=== PATIENT | female | born 1950 | race Caucasian/White ===

== ENCOUNTER → 2018-02-27 | Outpatient (CLI) | payer BC, MEDICARE ==
--- NOTE | 2018-02-27 14:40 | MM ---
Reason for exam: screening (asymptomatic). Baseline mammogram. History: Patient is postmenopausal. Physical Findings: Nurse did not find any significant physical abnormalities on exam. MG 3D Screening Mammo W/Cad Bilateral CC and MLO view(s) were taken. There are scattered fibroglandular densities. Finding #1: There is a 8 mm circumscribed oval mass in the upper outer quadrant, additional smaller nodularity anterior to this in the upper outer quadrant. Finding #2: There are typically benign round calcifications in the left breast. These results were verbally communicated with the patient and result sheet given to the patient on 02/27/18. ASSESSMENT: Incomplete: need additional imaging evaluation, BI-RAD 0 RECOMMENDATION: Ultrasound of the left breast. [facility] will attempt to contact patient to return for ultrasound.
--- NOTE | 2018-02-27 14:43 | USB ---
Reason for exam: additional evaluation requested from abnormal screening. History: Patient is postmenopausal. US Breast Workup Limited LT Left limited breast ultrasound including focal area of concern, retroareolar and axilla demonstrates a 0.4 x 0.3 x 0.5cm benign questionable node at 2 o'clock, a 0.6 x 0.4 x 0.4cm benign questionable node at 2 o'clock and a 0.8 x 0.4 x 0.7cm mixed lesion at 4 o'clock. These results were verbally communicated with the patient and result sheet given to the patient on 02/27/18. ASSESSMENT: Probably benign, BI-RAD 3 RECOMMENDATION: Follow-up diagnostic mammogram and ultrasound of the left breast in 6 months.
== END | disposition home or self-care (01) ==
LOC: RADMAMWWP 13:16
PROVIDERS: ATTEND Family Medicine
DX: Z12.31 Encounter for screening mammogram for malignant neoplasm of breast (principal); Z78.0 Asymptomatic menopausal state
CPT/HCPCS: 77063; 77067

== ENCOUNTER → 2018-03-05 | Outpatient (CLI) | payer MEDICARE, BC ==
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
== END | disposition home or self-care (01) ==
LOC: RADBDWWP 07:03
PROVIDERS: ATTEND Family Medicine
DX: Z13.820 Encounter for screening for osteoporosis (principal); Z78.0 Asymptomatic menopausal state
CPT/HCPCS: 77080

== ENCOUNTER → 2018-10-29 | Outpatient (CLI) | payer MEDICARE ==
--- NOTE | 2018-10-29 10:18 | XR ---
EXAMINATION TYPE: XR foot complete LT DATE OF EXAM: 10/29/2018 COMPARISON: NONE HISTORY: Pain involving the left heel TECHNIQUE: Three views are submitted. FINDINGS: The osseous structures are intact. There is no acute fracture or dislocation. There is a large sof t tissue mass or edema adjacent to the fifth MTP joint. No erosive or destructive changes. Arthropath y of the first MTP joint seen. Spurring off the base of the fifth metatarsal noted. Large calcaneal s purs are seen. IMPRESSION: 1. No acute fracture or dislocation. If symptoms persist, follow-up exam in 7 to 10 days could be ob tained. 2. Large calcaneal spurs. 3. Abnormal soft tissue attenuation adjacent to the fifth MTP could be related to soft tissue mass or inflammatory change. Correlate clinically.
--- NOTE | 2018-10-29 10:32 | XR ---
EXAMINATION TYPE: XR ankle complete LT DATE OF EXAM: 10/29/2018 COMPARISON: NONE HISTORY: Pain FINDINGS: Three views of the ankle demonstrate the ankle mortise to be intact and symmetric. The joint spaces are preserved. The osseous structures are intact. Hypertrophic spurring involving the medial malleo matty. Large calcaneal spurs noted. IMPRESSION: 1. No definite acute fracture or dislocation, if symptoms persist follow-up study in 7 to 10 days wou ld be suggested. 2. Large calcaneal spurs.
--- NOTE | 2018-10-29 10:47 | US ---
EXAMINATION TYPE: US extremity nonvasc complete LT DATE OF EXAM: 10/29/2018 COMPARISON: Correlation radiographs 10/29/2018 CLINICAL HISTORY: 67-year-old male posterior left heel pain for 10 days without injury. M79.672 pain in foot, M25.572 Pain in left ankle. TECHNIQUE: Targeted ultrasound examination of the posterior left ankle along the Achilles tendon. FINDINGS: Prominent enthesopathy and posterior heel spurs are noted at the Achilles insertion. There is a 6 mm fragmented spur noted and some superficial fiber loss at the distal insertion. Mild overlying soft ti ssue swelling and minimal associated hyperemia. The remainder of the Achilles tendon shows minimal fu siform thickening of the middle third segment without tear. No effusion within the retrocalcaneal bur sa. IMPRESSION: 1. Posterior calcaneal spur at the Achilles insertion with a 6 mm area of fragmentation. If acute regis n in this location, consider a fractured heel spur especially given the overlying soft tissue swellin g. 2. Minimal tearing of superficial insertional Achilles fibers. 3. Very mild tendinosis of the middle third segment of the Achilles tendon.
== END ==
LOC: RADUSWWP 08:51
PROVIDERS: ATTEND Family Medicine
DX: M77.32 Calcaneal spur, left foot (principal); M76.62 Achilles tendinitis, left leg; M25.572 Pain in left ankle and joints of left foot; R93.7 Abnormal findings on diagnostic imaging of other parts of musculoskeletal system

== ENCOUNTER → 2020-09-25 | Outpatient (CLI) | payer MEDICARE ==
--- NOTE | 2020-09-25 13:50 | US ---
EXAMINATION TYPE: US venous doppler duplex LE LT DATE OF EXAM: 09/25/2020 1:36 PM COMPARISON: NONE CLINICAL HISTORY: M79.662 Pain Left leg. pain SIDE PERFORMED: Left TECHNIQUE: The lower extremity deep venous system is examined utilizing real time linear array sonog gabbie with graded compression, doppler sonography and color-flow sonography. VESSELS IMAGED: Common Femoral Vein Deep Femoral Vein Greater Saphenous Vein * Femoral Vein Popliteal Vein Small Saphenous Vein * Proximal Calf Veins (* superficial vessels) Left Leg: Negative for DVT IMPRESSION: No evidence of deep vein thrombosis in the left leg.
== END | disposition home or self-care (01) ==
LOC: RADUSWWP 12:53
PROVIDERS: ATTEND Family Medicine
DX: M79.662 Pain in left lower leg (principal)

== ENCOUNTER → 2021-06-29 | Outpatient (CLI) | payer MEDICARE ==
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
--- NOTE | 2021-07-01 11:09 | MM ---
Reason for exam: screening (asymptomatic). Last mammogram was performed 2 years and 10 months ago. History: Patient is postmenopausal. Physical Findings: A clinical breast exam by your physician is recommended on an annual basis and results should be correlated with mammographic findings. MG 3D Screening Mammo W/Cad Bilateral CC and MLO view(s) were taken. Prior study comparison: August 13, 2018, left breast MG diagnostic mammo LT w CAD. February 27, 2018, bilateral MG 3d screening mammo w/cad. There are scattered fibroglandular densities. There is chronic nodularity in the left breast. No significant changes when compared with prior studies. ASSESSMENT: Negative, BI-RAD 1 RECOMMENDATION: Routine screening mammogram of both breasts in 1 year.
== END | disposition home or self-care (01) ==
LOC: RADMAMWWP 15:32
PROVIDERS: ATTEND Family Medicine
DX: Z12.31 Encounter for screening mammogram for malignant neoplasm of breast (principal); Z13.820 Encounter for screening for osteoporosis
CPT/HCPCS: 77063; 77067; 77080

== ENCOUNTER 2022-10-07 16:05 | Emergency (ER) | payer MEDICARE ==
[2022-10-07 16:12] VITALS: BP 158/68; PULSE 67; RESP 20; TEMP 97.9
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
[2022-10-07] MEDS ORDERED: ONDANSETRON 4 MG/2 ML VIAL IVP STA (18:23)
[2022-10-07] MEDS ORDERED: SODIUM CHLORIDE 0.9% 1,000 ML IV STA (18:23)
[2022-10-07 18:49] LABS: Basophils % (A) 0 %; Eosinophils # (A) 0.2 k/uL (0-0.7); Eosinophils % (A) 3 %; HCT 36.1 % (34.0-46.0); HGB 11.7 gm/dL (11.4-16.0); Lymphocytes # (A) 1.9 k/uL (1.0-4.8); Lymphocytes % (A) 24 %; MCH 29.5 pg (25.0-35.0); MCHC 32.5 g/dL (31.0-37.0); MCV 90.8 fL (80.0-100.0); Mean Platelet Volume 8.7; Monocytes # (A) 0.4 k/uL (0-1.0); Monocytes % (A) 6 %; Neutrophils # (A) 5.2 k/uL (1.3-7.7); Neutrophils % (A) 65 %; Platelet Count 160 k/uL (150-450); RBC 3.97 m/uL (3.80-5.40); RDW 15.4 % (11.5-15.5)
[2022-10-07 19:01] LABS: ALT 18 U/L (4-34); AST 22 U/L (14-36); African American GFR (CKD) >90 (>60 ml/min/1.73 sqM); Albumin 3.8 g/dL (3.5-5.0); Alkaline Phosphatase 66 U/L (38-126); Amylase 39 U/L (30-110); Anion Gap 8 mmol/L; Blood Urea Nitrogen 16 mg/dL (7-17); Calcium 9.1 mg/dL (8.4-10.2); Carbon Dioxide 31 mmol/L (22-30); Chloride 100 mmol/L (98-107); Glucose 107 mg/dL (74-99); Lipase 123 U/L (23-300); Non-African American GFR(CKD) 78 (>60 ml/min/1.73 sqM); Sodium 139 mmol/L (137-145); Total Bilirubin 0.5 mg/dL (0.2-1.3); Total Protein 6.5 g/dL (6.3-8.2)
[2022-10-07 19:29] LABS: INR 0.9 (<1.2); Partial Thromboplastin Time 22.3 sec (22.0-30.0); Prothrombin Time 10.1 sec (9.0-12.0)
[2022-10-07 19:52] LABS: Appearance,Urine Clear (Clear); Bilirubin,Urine Negative (Negative); Blood,Urine Negative (Negative); Color,Urine Yellow; Glucose,Urine (UA) Negative (Negative); Ketones,Urine Negative (Negative); Leukocyte Esterase,Urine Negative (Negative); Nitrite,Urine Negative (Negative); Protein,Urine Negative (Negative); Specific Gravity,Urine 1.018 (1.001-1.035); Urobilinogen,Urine <2.0 mg/dL (<2.0)
--- NOTE | 2022-10-07 19:58 | XR ---
EXAMINATION TYPE: XR KUB DATE OF EXAM: 10/07/2022 7:13 PM INDICATION: Patient age:Female; 71 years old; Reason for study: abdominal pain; COMPARISON: None. TECHNIQUE: One radiographic view of the abdomen was obtained. FINDINGS: The bowel gas pattern is nonspecific without dilated loops of small or large bowel. There i s no evidence for organomegaly or pneumoperitoneum. The osseous structures are intact. Fecal materi al and gas are demonstrated throughout the colon and rectum. Irregular appearance of the right infer ior pubic ramus. Multilevel degeneration changes of the spine. Stool is seen within the rectum. Mild osteoarthrosis of the hips. IMPRESSION: Nonspecific bowel gas pattern without radiographic evidence for acute process. Remote right inferior pubic ramus fracture suggested.
--- NOTE | 2022-10-07 20:12 | US ---
EXAMINATION TYPE: US gallbladder DATE OF EXAM: 10/07/2022 COMPARISON: NONE CLINICAL INDICATION: Female, 71 years old with history of pain; Pain. TECHNIQUE: Multiple sonographic images of the right upper quadrant are obtained. FINDINGS: EXAM MEASUREMENTS: Liver Length: 18.2 cm Gallbladder Wall: 0.18 cm CBD: 0.61 cm Right Kidney: 11.1 x 4.9 x 4.6 cm [employer] NOTES: Exam is limited due to gas. Pancreas: Only a portion of the pancreas was visualized. Liver: Appears enlarged and coarse with increased echogenicity. Hyperechoic lesion seen near the por ta hepatis: 2.8 x 2.8 x 1.2 cm suspected representing hemangioma. Gallbladder: Appears wnl Evidence for sonographic Caceres's sign: Patient was in pain throughout exam. CBD: Measures upper limits. Right Kidney: No evidence for hydronephrosis. IMPRESSION: 1. Coarsened echotexture to liver correlate with serum markers. There is hemangioma. 2. The gallbladder is within normal limits.
== END 2022-10-07 23:00 | disposition home or self-care (01) ==
LOC: EC 16:05
DX: R10.11 Right upper quadrant pain (principal); R10.13 Epigastric pain; I10 Essential (primary) hypertension; Z87.891 Personal history of nicotine dependence; Z86.73 Personal history of transient ischemic attack (TIA), and cerebral infarction without residual deficits; Z88.6 Allergy status to analgesic agent
CPT/HCPCS: 36415; 80053; 82150; 83605; 83690; 85025; 85610; 85730; 81003; 74018; 76705; 99285; 96374; 96361 ×3; J2405

== ENCOUNTER 2022-10-27 10:29 | Inpatient (IN) | payer MEDICARE ==
--- NOTE | 2022-10-27 10:44 | ED ---
General Adult HPI - General Stated complaint: Stroke Time Seen by Provider: 10/27/22 10:32 Source: patient, EMS, RN notes reviewed Mode of arrival: EMS Limitations: altered mental status, physical limitation - History of Present Illness Initial comments: Patient is a 71-year-old female presenting to the emergency department with concern for stroke. Patient reportedly last known well from alf at 950. Patient does have chronic left-sided weakness however they felt it was worse and patient had some slurred speech. EMS has reported waxing and waning symptoms. Patient does not have specific complaints and is a poor historian. Patient reportedly is on eliquis. - Related Data Home Medications Medication Instructions Recorded Confirmed Acetaminophen Tab [Tylenol] 650 mg PO Q6H PRN 10/27/22 10/27/22 Albuterol Nebulized [Ventolin 2.5 mg INHALATION RT-Q8H PRN 10/27/22 10/27/22 Nebulized] Amiodarone [Cordarone] 200 mg PO DAILY 10/27/22 10/27/22 Apixaban [Eliquis] 5 mg PO BID 10/27/22 10/27/22 Ascorbic Acid [Vitamin C] 1,000 mg PO DAILY 10/27/22 10/27/22 Atorvastatin [Lipitor] 20 mg PO HS 10/27/22 10/27/22 Cholecalciferol [Vitamin D3 (25 50 mcg PO DAILY 10/27/22 10/27/22 Mcg = 1000 Iu)] Cyanocobalamin (Vitamin B-12) 2,000 mcg PO DAILY 10/27/22 10/27/22 [Vitamin B-12] Docusate [Colace] 100 mg PO DAILY 10/27/22 10/27/22 Etanercept [Enbrel] 50 mg SQ FR 10/27/22 10/27/22 Famotidine [Pepcid] 20 mg PO BID 10/27/22 10/27/22 Folic Acid 0.8 mg PO DAILY 10/27/22 10/27/22 LORazepam [Ativan] 0.5 mg PO TID@0800,1500,2100 10/27/22 10/27/22 Levothyroxine Sodium [Synthroid] 100 mcg PO DAILY 10/27/22 10/27/22 Methotrexate/Pf [Reditrex 15 15 mg SQ FR 10/27/22 10/27/22 mg/0.6 ml Syringe] Metoprolol Tartrate [Lopressor] 100 mg PO BID 10/27/22 10/27/22 Ondansetron [Zofran] 4 mg PO Q8H PRN 10/27/22 10/27/22 Sertraline [Zoloft] 25 mg PO DAILY@0700 10/27/22 10/27/22 Triamcinolone 0.1% Cream [Kenalog 1 applicatio TOPICAL BID 10/27/22 10/27/22 0.1% Cream] Calderon Zepeda 1177mg Calcium 2,354 mg PO Q4H PRN 10/27/22 10/27/22 Carb risperiDONE [RisperDAL] 0.5 mg PO HS 10/27/22 10/27/22 Allergies Allergy/AdvReac Type Severity Reaction Status Date / Time celecoxib [From Celebrex] Allergy Unknown Verified 10/27/22 11:02 Review of Systems ROS Statement: Those systems with pertinent positive or pertinent negative responses have been documented in the HPI. ROS Other: All systems not noted in ROS Statement are negative. Constitutional: Denies: fever Eyes: Denies: eye pain ENT: Denies: ear pain Respiratory: Denies: cough Cardiovascular: Denies: chest pain Endocrine: Denies: fatigue Neurological: Reports: as per HPI, weakness. Denies: headache Past Medical History Past Medical History: CVA/TIA, Hyperlipidemia, Hypertension, Renal Disease, Rheu matoid Arthritis (RA), Thyroid Disorder History of Any Multi-Drug Resistant Organisms: None Reported Past Surgical History: Orthopedic Surgery Past Psychological History: Anxiety Smoking Status: Former smoker Past Alcohol Use History: None Reported Past Drug Use History: None Reported General Exam Limitations: altered mental status, physical limitation General appearance: alert Head exam: Present: atraumatic Eye exam: Present: normal appearance, PERRL, EOMI ENT exam: Present: normal oropharynx Neck exam: Present: normal inspection Respiratory exam: Present: normal lung sounds bilaterally Cardiovascular Exam: Present: normal rhythm, bradycardia GI/Abdominal exam: Present: soft. Absent: tenderness Extremities exam: Present: normal inspection Neurological exam: Present: alert, CN II-XII intact (Except for left-sided facial weakness) Expanded Neurological exam: Present: protecting the airway, other (Patient does have some slurred speech) Patient oriented to: Present: person, place. Absent: time Cranial nerves: EOM's Intact: Normal, Facial Palsy with Forehead Movement: Abnormal Left ( LFacial weakness with normal forehead movement) Sensory exam: Upper Extremity Light Touch: Normal, Lower Extremity Light Touch: Normal Motor strength exam: RUE: 5, LUE: 2/1, RLE: 5, LLE: 4 Eye Response: (3) open to voice Motor Response: (6) obeys commands Verbal Response: (4) confused conversation Psychiatric exam: Present: normal affect, normal mood Skin exam: Present: normal color Course Vital Signs 10/27/22 10/27/22 10:35 10:50 Temperature 98.0 F 98.0 F Pulse Rate 53 L 52 L Respiratory 16 18 Rate Blood Pressure 130/62 144/58 O2 Sat by Pulse 97 98 Oximetry - Reevaluation(s) Reevaluation #1: 10/27/22 11:09 Case was discussed with practitioner Ligia from neurosurgery interventional team who agrees patient is not a TPA candidate. Patient is felt not to be a TPA candidate secondary to currently being on eliquis, risks are felt to outweigh the benefits Case again discussed with practitioner Ligia who did review films with her team. She recommends aspirin, Plavix, and Lipitor until MRI is done. She does recommend holding eliquis until this time. 10/27/22 11:30 EKG Findings - EKG Results: EKG: interpreted by HERMILO (Nonspecific ST-T), sinus rhythm, normal axis, normal QRS EKG shows: bradycardia Medical Decision Making - Medical Decision Making Was pt. sent in by a medical professional or institution (, PA, PROJECT MANAGER PROCESS DEVELOPMENT, urgent care, hospital, or alf...) When possible be specific @ -EMS brought patient from nursing facility Did you speak to anyone other than the patient for history (EMS, parent, family, police, friend...)? What history was obtained from this source @ -EMS also right history as patient is a poor historian. Did you review nursing and triage notes (agree or disagree)? Why? @ -I reviewed and agree with nursing and triage notes Were old charts reviewed (outside hosp., previous admission, EMS record, old EKG, old radiological studies, urgent care reports/EKG's, alf records)? Report findings @ -No old charts were reviewed Differential Diagnosis (chest pain, altered mental status, abdominal pain women, abdominal pain men, vaginal bleeding, weakness, fever, dyspnea, syncope, headache, dizziness, GI bleed, back pain, seizure, CVA, palpatations, mental health)? @ -Differential Weakness: Hypoglycemia, shock, sepsis, hyponatremia, anemia, infection, PA, ETOH, adverse medicine reaction, overdose, stroke, this is not meant to be an all-inclusive list. EKG interpreted by me (3pts min.). @ -As above X-rays interpreted by me (1pt min.). @ -cxr shows no acute process CT interpreted by me (1pt min.). @ -Reports reviewed U/S interpreted by me (1pt. min.). @ -None done What testing was considered but not performed or refused? (CT, X-rays, U/S, labs)? Why? @ -None What meds were considered but not given or refused? Why? @ -None Did you discuss the management of the patient with other professionals (professionals i.e. , PA, PROJECT MANAGER PROCESS DEVELOPMENT, lab, RT, psych nurse, drug abuse social worker, chart writer, teacher, privacy officer, caser shoe parts)? Give summary @ -Discussed with practitioner Ligia, see above. Case also discussed with Dr. Lurdes Ortiz, who will admit for Dr. Reynoso Was smoking cessation discussed for >3mins.? @ -No Was critical care preformed (if so, how long)? @ -No Were there social determinants of health that impacted care today? How? (Homelessness, low income, unemployed, alcoholism, drug addiction, transportation, low edu. Level, literacy, decrease access to med. care, custodial, rehab)? @ -No Was there de-escalation of care discussed even if they declined (Discuss DNR or withdrawal of care, Hospice)? DNR status @ -No What co-morbidities impacted this encounter? (DM, HTN, Smoking, COPD, CAD, Cancer, CVA, ARF, Chemo, Hep., AIDS, mental health diagnosis, sleep apnea, morbid obesity)? @ -History of previous large CVA Was patient admitted / discharged? Hospital course, mention meds given and route, prescriptions, significant lab abnormalities, going to OR and other pertinent info. @ -Patient reevaluated. Patient updated on results and plan. Patient will be admitted with neurology consult Undiagnosed new problem with uncertain prognosis? @ -No Drug Therapy requiring intensive monitoring for toxicity (Heparin, Nitro, Insulin, Cardizem)? @ -No Were any procedures done? @ -No Diagnosis/symptom? @ -CVA Acute, or Chronic, or Acute on Chronic? @ -Acute Uncomplicated (without systemic symptoms) or Complicated (systemic symptoms)? @ -default Side effects of treatment? @ -No Exacerbation, Progression, or Severe Exacerbation? @ -No Poses a threat to life or bodily function? How? (Chest pain, USA, PA, pneumonia, PE, COPD, DKA, ARF, appy, cholecystitis, CVA, Diverticulitis, Homicidal, Stanton icidal, threat to staff... and all critical care pts) @ -No - Lab Data Result diagrams: 10/27/22 10:43 10/27/22 10:43 Lab Results 10/27/22 10/27/22 Range/Units 10:43 10:43 WBC 5.4 (3.8-10.6) k/uL RBC 4.10 (3.80-5.40) m/uL Hgb 12.3 (11.4-16.0) gm/dL Hct 37.6 (34.0-46.0) % MCV 91.5 (80.0-100.0) fL MCH 30.0 (25.0-35.0) pg MCHC 32.8 (31.0-37.0) g/dL RDW 14.9 (11.5-15.5) % Plt Count 191 (150-450) k/uL MPV 8.6 Neutrophils % 73 % Lymphocytes % 18 % Monocytes % 5 % Eosinophils % 2 % Basophils % 0 % Neutrophils # 3.9 (1.3-7.7) k/uL Lymphocytes # 1.0 (1.0-4.8) k/uL Monocytes # 0.3 (0-1.0) k/uL Eosinophils # 0.1 (0-0.7) k/uL Basophils # 0.0 (0-0.2) k/uL Sodium 140 (137-145) mmol/L Potassium 3.4 L (3.5-5.1) mmol/L Chloride 104 (98-107) mmol/L Carbon Dioxide 29 (22-30) mmol/L Anion Gap 7 mmol/L BUN 16 (7-17) mg/dL Creatinine 0.76 (0.52-1.04) mg/dL Est GFR (CKD-EPI)AfAm >90 (>60 ml/min/1.73 sqM) Est GFR (CKD-EPI)NonAf 81 (>60 ml/min/1.73 sqM) Glucose 198 H (74-99) mg/dL Calcium 8.8 (8.4-10.2) mg/dL Total Bilirubin 0.5 (0.2-1.3) mg/dL AST 29 (14-36) U/L ALT 21 (4-34) U/L Alkaline Phosphatase 50 (38-126) U/L Creatine Kinase 39 (30-135) U/L Total Protein 6.4 (6.3-8.2) g/dL Albumin 3.8 (3.5-5.0) g/dL Disposition Clinical Impression: Cerebrovascular accident (CVA) Disposition: ADMITTED IP TO THIS HOSP Is patient prescribed a controlled substance at d/c from ED?: No Referrals: Dandy Reynoso DO [Primary Care Provider] - 1-2 days Time of Disposition: 11:30
[2022-10-27 10:54] LABS: Basophils % (A) 0 %; Eosinophils # (A) 0.1 k/uL (0-0.7); Eosinophils % (A) 2 %; HCT 37.6 % (34.0-46.0); HGB 12.3 gm/dL (11.4-16.0); Lymphocytes % (A) 18 %; MCHC 32.8 g/dL (31.0-37.0); MCV 91.5 fL (80.0-100.0); Mean Platelet Volume 8.6; Monocytes # (A) 0.3 k/uL (0-1.0); Monocytes % (A) 5 %; Neutrophils # (A) 3.9 k/uL (1.3-7.7); Neutrophils % (A) 73 %; Platelet Count 191 k/uL (150-450); RDW 14.9 % (11.5-15.5); WBC 5.4 k/uL (3.8-10.6)
--- NOTE | 2022-10-27 11:00 | CT ---
EXAMINATION TYPE: CT brain wo con for TPA CT DLP: 1176.6 mGycm, Automated exposure control for dose reduction was used. DATE OF EXAM: 10/27/2022 10:55 AM COMPARISON: None. CLINICAL INDICATION:Female, 71 years old with history of Neuro deficit, acute, stroke suspected, Alte red mental status. TECHNIQUE: Brain: Multiple axial CT images of the brain were obtained without IV contrast. Coronal and sagittal reformats reviewed. FINDINGS: Brain: Extra-axial spaces: No abnormal extra-axial fluid collections. Ventricular system: Within normal limits Cerebral parenchyma: Chronic large right MCA territory infarct with encephalomalacia demonstrated. Re mote appearing central vinay infarct. No acute intraparenchymal hemorrhage or mass effect. The remain ing prajapati-white junction is well differentiated. Scattered hypoattenuating areas are seen within the w sylvester matter. Cerebellum: Unremarkable. Mass effect: No evidence of midline shift. Intracranial vasculature: Atherosclerotic calcifications of the intracranial vessels. Soft tissues: Normal. Calvarium/osseous structures: No depressed skull fracture. Paranasal sinuses and mastoid air cells: Clear Visualized orbits: Orbital contents are intact. IMPRESSION: 1. No definitive acute intracranial process. 2. Chronic large right MCA territory infarct with encephalomalacia. Remote appearing central vinay inf arct. 3. Nonspecific white matter changes likely related to chronic small vessel skin disease.
[2022-10-27 11:07] LABS: ALT 21 U/L (4-34); AST 29 U/L (14-36); African American GFR (CKD) >90 (>60 ml/min/1.73 sqM); Albumin 3.8 g/dL (3.5-5.0); Alkaline Phosphatase 50 U/L (38-126); Anion Gap 7 mmol/L; Blood Urea Nitrogen 16 mg/dL (7-17); Calcium 8.8 mg/dL (8.4-10.2); Carbon Dioxide 29 mmol/L (22-30); Chloride 104 mmol/L (98-107); Creatine Kinase 39 U/L (30-135); Glucose 198 mg/dL (74-99); Non-African American GFR(CKD) 81 (>60 ml/min/1.73 sqM); Potassium 3.4 mmol/L (3.5-5.1); Sodium 140 mmol/L (137-145); Total Bilirubin 0.5 mg/dL (0.2-1.3); Total Protein 6.4 g/dL (6.3-8.2)
--- NOTE | 2022-10-27 11:14 | XR ---
EXAMINATION TYPE: XR chest 2V DATE OF EXAM: 10/27/2022 COMPARISON: None HISTORY: 71-year-old female confusion, altered mental status TECHNIQUE: AP and lateral views FINDINGS: Heart upper limits of normal in size. Aorta and pulmonary vasculature within normal limits. Mild inte rstitial prominence likely technical due to magnification from body habitus. No consolidation or pleu ral effusion. IMPRESSION: Limited portable exam. No definite acute process.
--- NOTE | 2022-10-27 11:26 | CT ---
EXAMINATION TYPE: CT angio head neck CT DLP: 670.9 mGycm, Automated exposure control for dose reduction was used. DATE OF EXAM: 10/27/2022 11:11 AM COMPARISON: CT brain 10/27/2022. CLINICAL INDICATION:Female, 71 years old with history of Neuro deficit, acute, stroke suspected; PHH, Altered mental status. TECHNIQUE: Axially acquired helical CT angiogram of the head and neck was obtained with contrast util izing 75 cc of [id number]-370 administered intravenously. Axial images are supplemented with 3D reconstru ctions which were post-processed at an independent workstation. NASCET criteria used. FINDINGS: CTA HEAD: No evidence of acute intracranial hemorrhage, mass effect, or midline shift. The ventricles, sulci, a nd cisterns are unremarkable. Chronic right MCA territory infarct with encephalomalacia. Chronic appe aring central vinay infarct. The visualized portions of the internal carotid arteries, middle cerebral arteries, anterior cerebral arteries, and posterior cerebral arteries are patent. origin of the right TIG WELDER. The basilar and vertebral arteries are patent. CTA NECK: Right Carotid System: The common carotid artery and external carotid artery are patent. Mild atelectatic calcification of t he carotid bulb. The carotid bifurcation demonstrates no evidence of hemodynamically significant sten osis. The remaining portions of the internal carotid artery demonstrate normal size without significa nt narrowing. Left Carotid System: The common carotid artery and external carotid artery are patent. Mild atherosclerotic calcification at the carotid bulb. The carotid bifurcation demonstrates no evidence of hemodynamically significant stenosis. The remaining portions of the internal carotid artery demonstrate normal size without signi ficant narrowing. Vertebral arteries are patent. Mild stenosis with atherosclerotic calcification involving the bilater al vertebral arteries at the foramen of magnum. There is a three-vessel aortic arch. The origins of the great vessels are patent. Mild atheroscleroti c calcification at the origin of the left subclavian artery. No evidence of hemodynamically significa nt stenosis. Medial left upper lobe 1.9 x 1.5 cm pulmonary nodule (Series 401, image 26). IMPRESSION: 1. No evidence of dissection of the cervical internal carotid arteries or vertebral arteries or any e vidence of significant stenosis at the carotid bifurcations. 2. No evidence of high-grade stenosis or intracranial aneurysm. 3. Chronic appearing right MCA territory infarct with encephalomalacia. Chronic appearing central marcial s small infarct. Consider further evaluation with MRI. 4. Left upper lobe 1.9 x 1.5 cm pulmonary nodule concerning for possible malignancy. Further evaluati on with PET/CT is recommended.
[2022-10-27] MEDS ORDERED: ASPIRIN 325 MG TAB PO STA (11:31)
[2022-10-27] MEDS ORDERED: CLOPIDOGREL 75 MG TAB PO SCH (11:45)
[2022-10-27] MEDS: SODIUM CHLORIDE 0.9% 1,000 ML IV SCH (12:28)
[2022-10-27 13:20] LABS: Prothrombin Time 10.6 sec (9.0-12.0)
[2022-10-27 13:31] LABS: Partial Thromboplastin Time 21.4 sec (22.0-30.0)
[2022-10-27] MEDS ORDERED: ACETAMINOPHEN TAB 325 MG TAB PO PRN (14:09)
[2022-10-27] MEDS ORDERED: ALBUTEROL NEBULIZED 2.5 MG/3 ML INHALATION PRN (14:09)
[2022-10-27] MEDS ORDERED: ONDANSETRON 4 MG TAB PO PRN (14:09)
[2022-10-27] MEDS: LORazepam 0.5 MG TAB PO SCH ×3 (16:47→21:02)
--- NOTE | 2022-10-27 18:30 | P.CNNES ---
History of Present Illness Consult date: 10/27/22 Requesting physician: René Perez Reason for Consult: Stroke/TIA History of Present Illness: Patient is a 71-year-old right-handed female with history of previous CVA, with residual left-sided weakness, dementia, resident of shelter, came to the hospital by ambulance today at 10:29 AM for possible new stroke. Patient states that she was sitting eating lunch having discussion with the quality control systems manager, when the quality control systems manager started hollering to get a flashlight. She said that they were concerned that patient was having another stroke, because of increasing facial droop, therefore they drove her to the hospital. Patient not very good historian. Patient states that she has history of 2 strokes in the past, the one of them occurred in May 2022, affected her left side. As per nursing report, patient was brought to the hospital because she was noted to have increased slurred speech and increased weakness on the left side. EMS flow sheet not available in the chart. Vital signs arrival blood pressure 1:30/62, pulse rate [address] head showed no acute intracranial process. Chronic large right MCA territory infarct with encephalomalacia. Remote appearing central vinay infarct. Nonspecific white matter changes likely related to chronic small vessel ischemic disease. I personally reviewed CT head, agree with the findings. Chest x-ray was limited portable exam. No definite acute process. EKG shows sinus bradycardia with first-degree AV block. Patient's home medications include B12, Enbrel 50 mg subcu Monday, folic acid 0.8 mg daily, levothyroxine, Eliquis 5 mg twice a day, Pepcid, lorazepam 0.5 mA 3 times a day, Zofran, amiodarone 200 mg daily, Lipitor 20 mg, vitamin D, methotrexate 15 mg subcu Monday, risperidone 0.5 mg at bedtime, Zoloft 25 mg and metoprolol 100 mg twice a day. No antiplatelet medication listed in her home medications. Patient at present is hallucinating, saying "look at the picture, looks like my son Mychal", pointing on the ceiling. Patient admits to having mild hypertension, beginning stage of diabetes. She smoked 10-12 cigarettes per day for 10 years, quit 15 years ago. Denies any alcohol or drug use. Review of Systems Headache "a little" relates to stress. Psoriasis rash Constitutional: Reports weight loss, Denies chills, Denies fever Eyes: left blurred vision, denies diplopia, denies pain Ears: deny: decreased hearing, ear discharge Ears, nose, mouth and throat: Reports headache, Denies sore throat Cardiovascular: Denies chest pain, Denies shortness of breath Respiratory: Denies cough, Denies excessive sputum Gastrointestinal: Reports constipation, Reports nausea, Denies abdominal pain, Denies diarrhea, Denies vomiting Genitourinary: Denies dysuria, Denies hematuria Musculoskeletal: Denies myalgias, Denies neck pain Integumentary: Reports rash, Denies pruritus Neurological: Reports as per HPI Psychiatric: Reports anxiety, Reports depression, Reports memory loss Endocrine: Reports fatigue, Reports weight change Hematologic/Lymphatic: Denies easy bleeding, Denies easy bruising Past Medical History Past Medical History: CVA/TIA, Hyperlipidemia, Hypertension, Renal Disease, Rheumatoid Arthritis (RA), Thyroid Disorder History of Any Multi-Drug Resistant Organisms: None Reported Past Surgical History: Orthopedic Surgery Past Psychological History: Anxiety Smoking Status: Former smoker Past Alcohol Use History: None Reported Past Drug Use History: None Reported Medications and Allergies Home Medications Medication Instructions Recorded Confirmed Type Acetaminophen Tab [Tylenol] 650 mg PO Q6H PRN 10/27/22 10/27/22 History Albuterol Nebulized [Ventolin 2.5 mg INHALATION RT-Q8H PRN 10/27/22 10/27/22 History Nebulized] Amiodarone [Cordarone] 200 mg PO DAILY 10/27/22 10/27/22 History Apixaban [Eliquis] 5 mg PO BID 10/27/22 10/27/22 History Ascorbic Acid [Vitamin C] 1,000 mg PO DAILY 10/27/22 10/27/22 History Atorvastatin [Lipitor] 20 mg PO HS 10/27/22 10/27/22 History Cholecalciferol [Vitamin D3 (25 50 mcg PO DAILY 10/27/22 10/27/22 History Mcg = 1000 Iu)] Cyanocobalamin (Vitamin B-12) 2,000 mcg PO DAILY 10/27/22 10/27/22 History [Vitamin B-12] Docusate [Colace] 100 mg PO DAILY 10/27/22 10/27/22 History Etanercept [Enbrel] 50 mg SQ FR 10/27/22 10/27/22 History Famotidine [Pepcid] 20 mg PO BID 10/27/22 10/27/22 History Folic Acid 0.8 mg PO DAILY 10/27/22 10/27/22 History LORazepam [Ativan] 0.5 mg PO TID@0800,1500,2100 10/27/22 10/27/22 History Levothyroxine Sodium [Synthroid] 100 mcg PO DAILY 10/27/22 10/27/22 History Methotrexate/Pf [Reditrex 15 15 mg SQ FR 10/27/22 10/27/22 History mg/0.6 ml Syringe] Metoprolol Tartrate [Lopressor] 100 mg PO BID 10/27/22 10/27/22 History Ondansetron [Zofran] 4 mg PO Q8H PRN 10/27/22 10/27/22 History Sertraline [Zoloft] 25 mg PO DAILY@0700 10/27/22 10/27/22 History Triamcinolone 0.1% Cream [Kenalog 1 applicatio TOPICAL BID 10/27/22 10/27/22 History 0.1% Cream] Tums Chewy Delights 1177mg Calcium 2,354 mg PO Q4H PRN 10/27/22 10/27/22 History Carb risperiDONE [RisperDAL] 0.5 mg PO HS 10/27/22 10/27/22 History Allergies Allergy/AdvReac Type Severity Reaction Status Date / Time celecoxib [From Celebrex] Allergy Unknown Verified 10/27/22 11:02 Physical Examination - Vital Signs Vital Signs: Vital Signs Temp Pulse Resp BP Pulse Ox 10/27/22 10:50 98.0 F 52 L 18 144/58 98 10/27/22 10:35 98.0 F 53 L 16 130/62 97 Intake and Output 10/26/22 10/27/22 10/27/22 22:59 06:59 14:59 Other: Weight 89.947 kg Patient is an elderly female, in no acute distress. Patient is alert awake, quite confused, hallucinating. Patient states it is December and the year is 1920 but then said was 1922 and that makes her 75 years old. Although she 71 years of age. She states that she lives in [place] in [place] in [facility] and knows name of the current president. She does not know name of the current building she is in. Patient is hallucinating, seeing Mychal, her son on the wall and on the side. She states her son Mychal is 10 years old, blonde, but then I asked if it was her grandson, she said yes Mychal is her grandson. Patient looking at the closed TV monitor saying I think he came with them". "It's Mychal in there", pointing to the TV. Speech and language functions are normal. Patient can name and repeat very well. No aphasia, although she does have mild dysarthria. Attention, concentration and fund of knowledge is limited. On cranial nerve examination, pupils are equal, round and reacting to light, visual kee reveal left-sided neglect and probable left visual field cut. Her gaze is midline, but she is seeing objects (hallucinating) in the right visual field. Extraocular muscles are intact with no nystagmus. Patient has left facial weakness, central type. Her tongue protrudes to the midline. Palatal elevation and sensation normal, hearing and shoulder shrug slightly better on the right as compared to left. Her facial sensation normal. On muscle strength testing, patient has left pronator drift. The strength is (right/left deltoid 5/4, biceps 5/5, triceps 5/5, master pilot 5/4, hip flexion 5/4 to 4-, ankle dorsiflexion 5/5. Deep tendon reflexes are symmetric (right/left) Sensory to touch is less on the left arm and leg but equal on the face. Cerebellar function showed no ataxia for [id number] testing on the right, slightly dysmetric on the left. Tone is slightly increased on the left and bulk of muscles normal. Gait deferred.. On general examination, there is no carotid bruit or murmur, S1-S2 audible. Chest is clear on consultation. Abdomen is soft nontender. No organomegaly, bowel sounds present. Peripheral pulses are present. No edema. No evidence of tongue bite kim. Results - Laboratory Findings CBC and BMP: 10/27/22 10:43 10/27/22 10:43 Abnormal Lab Findings: Abnormal Labs 10/27/22 10:43 Potassium 3.4 L Glucose 198 H Assessment and Plan Assessment: * Worsening of baseline left hemiparesis, slurred speech, rule out new stroke. * History of CVA in the right MCA vascular territory, with left hemiparesis * History of remote pontine stroke based upon CT head * Hypertension * Mild diabetes * Dementia * X tobacco use Plan: * MRI of the brain evaluate for new stroke. * Resume Eliquis. May add low-dose aspirin. I would avoid placing on dual antiplatelet medication along with Eliquis. * CTA of the neck and head showed no evidence of dissection of the cervical internal carotid arteries or vertebral arteries or any evidence of significant stenosis at the carotid bifurcations. No evidence of high-grade stenosis or intracranial aneurysm. Chronic appearing right MCA territory infarct with encephalomalacia. Chronic appearing central vinay small infarct. Left upper lobe 1.9 x 1.5 cm pulmonary nodule concerning for possible malignancy. Further evaluation with PET/CT is recommended. * Internal medicine to address possible left upper lobe mass. * 2-D echo. * EEG evaluate for epileptiform activity * Hemoglobin A1c, fasting lipid panel. * Continue B12. Neurology will follow. Thank you for the consult. Time with Patient: Greater than 30
[2022-10-27] MEDS: cloNIDine HCL 0.1 MG TAB PO SCH (18:57)
[2022-10-27] MEDS: TRIAMCINOLONE 0.1% CREAM 80 GM TUBE TOPICAL SCH (21:02)
[2022-10-27] MEDS: FAMOTIDINE 20 MG TAB PO SCH (21:02)
[2022-10-27] MEDS: risperiDONE 0.5 MG TAB PO SCH (21:02)
[2022-10-27] MEDS: ATORVASTATIN 80 MG TAB PO SCH (21:03)
[2022-10-27] MEDS: APIXABAN 5 MG TAB PO SCH (21:03)
--- NOTE | 2022-10-27 21:39 | P.HPIM ---
History of Present Illness H&P Date: 10/27/22 Chief Complaint: Left-sided weakness This is a 71-year-old patient who follows a Dr. Reynoso. Chronic stable medical conditions include hypertension, hyperlipidemia, rheumatoid arthritis, hypothyroid, stroke with left-sided weakness that has resolved, anxiety. Patient does have a walker Wheelchair. Sr. drops in the hospital help her out. For 2 months patient noticed weakness of the left arm. Some slurring of speech off and on. No fever no chills. Occasionally she'll level cough with drinking water. Review of systems: GEN.: Tired EYES: None HEENT: None NECK: None RESPIRATORY: None CARDIOVASCULAR: None GASTROINTESTINAL: None GENITOURINARY: Some incontinence MUSCULOSKELETAL: Joint pain LYMPHATICS: None HEMATOLOGICAL: None PSYCHIATRY: None NEUROLOGICAL: As above Past medical history to include: Stroke, hyperlipidemia, hypertension, kidney disease, RA, hypothyroid, anxiety, Social history: Lives alone. Smoked in the past. Sr. drops and aVF that time to help her out. Does use a wheelchair at a walker. Physical examination: VITAL SIGNS: 98, 52, 18, 140/58, 98% room air GENERAL:. BMI 35.1, laying in bed awake but anxious appearing. EYES: Pupils equal. Conjunctiva normal. HEENT: External appearance of nose and ears normal, oral cavity grossly normal. NECK: JVD not raised; masses not palpable. HEART: First and second heart sounds are normal; no edema. LUNGS: Respiratory rate normal; decreased breath sounds. ABDOMEN: Soft, nontender, liver spleen not palpable, no masses palpable. PSYCH: Answering questions appropriatelyl. MUSCULOSKELETAL:No Clubbing/cyanosis;muscles-grossly intact. OA NEUROLOGICAL: [Cranial nerves grossly intact; no facial asymmetry, power in the left arm 3/5. Multiple slightly to the left. LYMPHATICS: No lymph nodes palpable in the axilla and neck INVESTIGATIONS, reviewed in the clinical context: White count 5.4 hemoglobin 12.3 platelets 191 potassium 3.4 creatinine 0.76 EKG tracing personally reviewed by me-normal sinus rhythm. Nonspecific ST-T wave changes. CT brain without contrast: Chronic large right MCA territory infarct with encephalomalacia. Chest x-ray film personally reviewed by me-pulmonary artery prominent. Borderline cardiomegaly CT angiogram head and neck: Unremarkable Assessment and plan: -Patient is intubated slurring of speech. Probably TIA. Antiplatelet agents. Consult neurology. -Left arm weakness from a previous stroke in the right MCA territory. Patient reports of 2 months duration. -Chronic medical debility at her baseline uses a walker or wheelchair. -Hyperlipidemia Lipitor 20 mg -Hypothyroid Synthroid 100 g a day -Depression Zoloft -Essential hypertension Lopressor 100 mg twice a day -Paroxysmal atrial fibrillation, currently in sinus rhythm Amiodarone. Lopressor, eliquis Neurology consulted. Discussed with patient. Past Medical History Past Medical History: CVA/TIA, Hyperlipidemia, Hypertension, Renal Disease, Rheumatoid Arthritis (RA), Thyroid Disorder History of Any Multi-Drug Resistant Organisms: None Reported Past Surgical History: Orthopedic Surgery Past Psychological History: Anxiety Smoking Status: Former smoker Past Alcohol Use History: None Reported Past Drug Use History: None Reported Medications and Allergies Home Medications Medication Instructions Recorded Confirmed Type Acetaminophen Tab [Tylenol] 650 mg PO Q6H PRN 10/27/22 10/27/22 History Albuterol Nebulized [Ventolin 2.5 mg INHALATION RT-Q8H PRN 10/27/22 10/27/22 History Nebulized] Amiodarone [Cordarone] 200 mg PO DAILY 10/27/22 10/27/22 History Apixaban [Eliquis] 5 mg PO BID 10/27/22 10/27/22 History Ascorbic Acid [Vitamin C] 1,000 mg PO DAILY 10/27/22 10/27/22 History Atorvastatin [Lipitor] 20 mg PO HS 10/27/22 10/27/22 History Cholecalciferol [Vitamin D3 (25 50 mcg PO DAILY 10/27/22 10/27/22 History Mcg = 1000 Iu)] Cyanocobalamin (Vitamin B-12) 2,000 mcg PO DAILY 10/27/22 10/27/22 History [Vitamin B-12] Docusate [Colace] 100 mg PO DAILY 10/27/22 10/27/22 History Etanercept [Enbrel] 50 mg SQ FR 10/27/22 10/27/22 History Famotidine [Pepcid] 20 mg PO BID 10/27/22 10/27/22 History Folic Acid 0.8 mg PO DAILY 10/27/22 10/27/22 History LORazepam [Ativan] 0.5 mg PO TID@0800,1500,2100 10/27/22 10/27/22 History Levothyroxine Sodium [Synthroid] 100 mcg PO DAILY 10/27/22 10/27/22 History Methotrexate/Pf [Reditrex 15 15 mg SQ FR 10/27/22 10/27/22 History mg/0.6 ml Syringe] Metoprolol Tartrate [Lopressor] 100 mg PO BID 10/27/22 10/27/22 History Ondansetron [Zofran] 4 mg PO Q8H PRN 10/27/22 10/27/22 History Sertraline [Zoloft] 25 mg PO DAILY@0700 10/27/22 10/27/22 History Triamcinolone 0.1% Cream [Kenalog 1 applicatio TOPICAL BID 10/27/22 10/27/22 History 0.1% Cream] Tums Chewy Delights 1177mg Calcium 2,354 mg PO Q4H PRN 10/27/22 10/27/22 History Carb risperiDONE [RisperDAL] 0.5 mg PO HS 10/27/22 10/27/22 History Allergies Allergy/AdvReac Type Severity Reaction Status Date / Time celecoxib [From Celebrex] Allergy Unknown Verified 10/27/22 11:02 Physical Exam Vitals: Vital Signs Temp Pulse Resp BP Pulse Ox 10/27/22 10:50 98.0 F 52 L 18 144/58 98 10/27/22 10:35 98.0 F 53 L 16 130/62 97 Intake and Output 10/26/22 10/27/22 10/27/22 22:59 06:59 14:59 Other: Weight 89.947 kg Results CBC & Chem 7: 10/27/22 10:43 10/27/22 10:43 Labs: Abnormal Lab Results - Last 24 Hours (Table) 10/27/22 10/27/22 Range/Units 10:43 10:43 APTT 21.4 L (22.0-30.0) sec Potassium 3.4 L (3.5-5.1) mmol/L Glucose 198 H (74-99) mg/dL
[2022-10-28] MEDS: SODIUM CHLORIDE 0.9% 1,000 ML IV SCH ×3 (00:09→19:29)
[2022-10-28] MEDS: CYANOCOBALAMIN 500 MCG TAB PO SCH (08:39)
[2022-10-28] MEDS: LORazepam 0.5 MG TAB PO SCH ×3 (08:39→19:29)
[2022-10-28] MEDS: risperiDONE 0.5 MG TAB PO SCH (08:39)
[2022-10-28] MEDS: APIXABAN 5 MG TAB PO SCH ×2 (08:40→19:29)
[2022-10-28] MEDS: cloNIDine HCL 0.1 MG TAB PO SCH ×2 (08:40→19:29)
[2022-10-28] MEDS: FAMOTIDINE 20 MG TAB PO SCH ×2 (08:40→19:29)
[2022-10-28] MEDS: ATORVASTATIN 80 MG TAB PO SCH (08:40)
[2022-10-28] MEDS: FOLIC ACID 1 MG TAB PO SCH (08:41)
[2022-10-28] MEDS: ASCORBIC ACID 500 MG TAB PO SCH (08:41)
[2022-10-28] MEDS: AMIODARONE 200 MG TAB PO SCH (08:41)
[2022-10-28] MEDS: LEVOTHYROXINE 100 MCG TAB PO SCH (08:41)
[2022-10-28] MEDS: CHOLECALCIFEROL 25 MCG (1000 IU) TABLET PO SCH (08:42)
[2022-10-28] MEDS: SERTRALINE 25 MG TAB PO SCH (08:45)
[2022-10-28] MEDS: TRIAMCINOLONE 0.1% CREAM 80 GM TUBE TOPICAL SCH ×2 (08:54→21:43)
[2022-10-28] MEDS ORDERED: METHOTREXATE SQ SCH (09:00)
[2022-10-28] MEDS ORDERED: ASPIRIN 325 MG TAB PO SCH (09:00)
[2022-10-28] MEDS ORDERED: Etanercept [Enbrel] 50 MG/ML Syringe SQ SCH (09:00)
[2022-10-28 09:27] LABS: LDL Cholesterol,Calculated 62.4 mg/dL (0.0-131.0)
[2022-10-28 10:08] LABS: Glucose,Whole Blood 149 mg/dL (70-110)
--- NOTE | 2022-10-28 13:17 | CA ---
Transthoracic Echo Report Name: Laurie Au Age: 71 Gender: F : 1950 Exam Date: 10/28/2022 07:44 Exam Location: [place] [facility] Ht (in): 63 Wt (lb): 198 Ordering Physician: Blanca Tafoya MD Attending/Referring Phys: Therapy Teacher Joby Cho Procedure CPT: Indications: acute CVA Cardiac Hx: Bubble study performed. Technical Quality: Technically difficult study Contrast 1: Agitated Saline Total Dose (mL): 10 Contrast 2: Total Dose (mL): MEASUREMENTS (Male / Female) Normal Values 2D ECHO LV Diastolic Diameter PLAX 4.6 cm 4.2 - 5.9 / 3.9 - 5.3 cm LV Systolic Diameter PLAX 2.9 cm IVS Diastolic Thickness 1.1 cm 0.6 - 1.0 / 0.6 - 0.9 cm LVPW Diastolic Thickness 1.2 cm 0.6 - 1.0 / 0.6 - 0.9 cm LV Relative Wall Thickness 0.5 RV Internal Dim ED PLAX 3.1 cm LVOT Diameter 2.0 cm Aortic Root Diameter 2.7 cm LA Systolic Diameter LX 3.0 cm 3.0 - 4.0 / 2.7 - 3.8 cm LV Diastolic Volume MOD BP 46.4 cm??? 67 - 155 / 56 - 104 cm??? LV Systolic Volume MOD BP 17.1 cm??? 22 - 58 / 19 - 49 cm??? LV Ejection Fraction MOD BP 63.1 % >= 55 % LV Diastolic Volume MOD 4C 56.9 cm??? LV Systolic Volume MOD 4C 12.9 cm??? LV Ejection Fraction MOD 4C 77.3 % LV Diastolic Length 4C 6.3 cm LV Systolic Length 4C 5.2 cm LV Diastolic Volume MOD 2C 35.4 cm??? LV Systolic Volume MOD 2C 22.1 cm??? LV Ejection Fraction MOD 2C 37.7 % LV Diastolic Length 2C 5.9 cm LV Systolic Length 2C 5.4 cm LA Volume 50.7 cm??? 18 - 58 / 22 - 52 cm??? DOPPLER AV Peak Velocity 172.9 cm/s AV Peak Gradient 12.0 mmHg MR Peak Velocity 483.1 cm/s MR Peak Gradient 93.3 mmHg Mitral E Point Velocity 78.8 cm/s Mitral A Point Velocity 95.5 cm/s Mitral E to A Ratio 0.8 MV Deceleration Time 166.3 ms MV E' Velocity 11.8 cm/s Mitral E to MV E' Ratio 6.7 TR Peak Velocity 161.6 cm/s TR Peak Gradient 10.5 mmHg FINDINGS Left Ventricle Left ventricular ejection fraction is estimated at 55-60 %. Right Ventricle Normal right ventricular size. Right Atrium Normal right atrial size. Left Atrium Normal left atrial size. Mitral Valve Structurally normal mitral valve. Mild MR. Aortic Valve Trileaflet aortic valve. No aortic valve stenosis or regurgitation. Tricuspid Valve Tricuspid valve not well visualized. Trace TR. Pulmonic Valve Pulmonic valve not well visualized. No pulmonic regurgitation. Pericardium Normal pericardium. Aorta Normal size aortic root and proximal ascending aorta. CONCLUSIONS Negative Bubble study. Previewed by: Dr. Avery Ojeda MD (Electronically Signed) Final Date: 28 October 2022 13:17
--- NOTE | 2022-10-28 16:07 | P.PN ---
Progress Note - Text Progress Note Date: 10/28/22 Chief Complaint: Left-sided weakness This is a 71-year-old patient who follows a Dr. Reynoso. Chronic stable medical conditions include hypertension, hyperlipidemia, rheumatoid arthritis, hypothyroid, stroke with left-sided weakness that has resolved, anxiety. Patient does have a walker Wheelchair. Sr. drops in the hospital help her out. For 2 months patient noticed weakness of the left arm. Some slurring of speech off and on. No fever no chills. Occasionally she'll level cough with drinking water. Admitted with worsening of stroke. October 28: CT of the neck and head unremarkable. MRI of the brain ordered. Pulmonary consulted for left lung nodule. Patient was a bit agitated earlier today. Pending speech evaluation. Sleepy today. Really hasn't eaten much. Lasix on dysphagia 1 diet. Active Medications Acetaminophen (Acetaminophen Tab 325 Mg Tab) 650 mg PO Q6H PRN PRN Reason: Pain or Fever > 100.5 Albuterol Sulfate (Albuterol Nebulized 2.5 Mg/3 Ml) 2.5 mg INHALATION RT-Q8H PRN PRN Reason: Shortness Of Breath Amiodarone HCl (Amiodarone 200 Mg Tab) 200 mg PO DAILY [facility] Last Admin: 10/28/22 08:41 Dose: 200 mg Apixaban (Apixaban 5 Mg Tab) 5 mg PO BID [facility]; Protocol Last Admin: 10/28/22 08:40 Dose: 5 mg Ascorbic Acid (Ascorbic Acid 500 Mg Tab) 1,000 mg PO DAILY [facility] Last Admin: 10/28/22 08:41 Dose: 1,000 mg Aspirin (Aspirin 325 Mg Tab) 325 mg PO DAILY [facility] Last Admin: 10/28/22 08:41 Dose: 325 mg Atorvastatin Calcium (Atorvastatin 80 Mg Tab) 80 mg PO HS [facility] Last Admin: 10/28/22 08:40 Dose: 80 mg Cholecalciferol (Cholecalciferol 25 Mcg (1000 Iu) Tablet) 50 mcg PO DAILY [facility] Last Admin: 10/28/22 08:42 Dose: 50 mcg Clonidine (Clonidine Hcl 0.1 Mg Tab) 0.1 mg PO BID [facility] Last Admin: 10/28/22 08:40 Dose: 0.1 mg Cyanocobalamin (Cyanocobalamin 500 Mcg Tab) 2,000 mcg PO DAILY [facility] Last Admin: 10/28/22 08:39 Dose: 2,000 mcg Famotidine (Famotidine 20 Mg Tab) 20 mg PO BID [facility] Last Admin: 10/28/22 08:40 Dose: 20 mg Folic Acid (Folic Acid 1 Mg Tab) 1 mg PO DAILY [facility] Last Admin: 10/28/22 08:41 Dose: 1 mg Sodium Chloride (Saline 0.9%) 1,000 mls @ 100 mls/hr IV .Q10H [facility] Last Admin: 10/28/22 08:42 Dose: 100 mls/hr Levothyroxine Sodium (Levothyroxine 100 Mcg Tab) 100 mcg PO DAILY@0630 [facility] Last Admin: 10/28/22 08:41 Dose: 100 mcg Lorazepam (Lorazepam 0.5 Mg Tab) 0.5 mg PO TID@0800,1500,2100 [facility] Last Admin: 10/28/22 08:39 Dose: 0.5 mg Etanercept [Enbrel] (50 Mg/Ml Syringe) 50 mg SQ FR [facility] Last Admin: 10/28/22 08:52 Dose: Not Given Methotrexate/Pf [ Reditrex 15 Mg/0.6 Ml Syringe] 15 Mg/0. 6 Ml Each 15 mg SQ FR [facility] Last Admin: 10/28/22 08:51 Dose: Not Given Ondansetron HCl (Ondansetron 4 Mg Tab) 4 mg PO Q8H PRN PRN Reason: Nausea Risperidone (Risperidone 0.5 Mg Tab) 0.5 mg PO HS [facility] Last Admin: 10/28/22 08:39 Dose: 0.5 mg Sertraline HCl (Sertraline 25 Mg Tab) 25 mg PO DAILY@0700 [facility] Last Admin: 10/28/22 08:45 Dose: 25 mg Triamcinolone Acetonide (Triamcinolone 0.1% Cream 80 Gm Tube) 1 applic TOPICAL BID [facility]; Protocol Last Admin: 10/28/22 08:54 Dose: 1 applic Past medical history to include: Stroke, hyperlipidemia, hypertension, kidney disease, RA, hypothyroid, anxiety, Social history: Lives alone. Smoked in the past. Sr. drops and aVF that time to help her out. Does use a wheelchair at a walker. Physical examination: VITAL SIGNS: 98.1, 69, 18, 106/61, 96% room air GENERAL:. BMI 35.1, laying in bed sleepy EYES: Pupils equal. Conjunctiva normal. HEENT: External appearance of nose and ears normal, oral cavity grossly normal. NECK: JVD not raised; masses not palpable. HEART: First and second heart sounds are normal; no edema. LUNGS: Respiratory rate normal; decreased breath sounds. ABDOMEN: Soft, nontender, liver spleen not palpable, no masses palpable. PSYCH: Sleepy, just about arousable MUSCULOSKELETAL:No Clubbing/cyanosis;muscles-grossly intact. OA NEUROLOGICAL: [Cranial nerves grossly intact; no facial asymmetry, power in the left arm 3/5. Mouth slightly to the left. INVESTIGATIONS, reviewed in the clinical context: 2-D echo: EF 55-60%. Negative bubble study LDL 62 White count 5.4 hemoglobin 12.3 platelets 191 potassium 3.4 creatinine 0.76 EKG tracing personally reviewed by me-normal sinus rhythm. Nonspecific ST-T wave changes. CT brain without contrast: Chronic large right MCA territory infarct with encephalomalacia. Chest x-ray film personally reviewed by me-pulmonary artery prominent. Borderline cardiomegaly CT angiogram head and neck: Unremarkable Assessment and plan: -Presented with slurring of speech. Probably TIA versus worsening of previous stroke. Antiplatelet agents. Pending MRI. -Left arm weakness from a previous stroke in the right MCA territory. Patient reports of 2 months duration. Could be some worsening. MRI brain pending -Chronic medical debility at her baseline uses a walker or wheelchair. -Hyperlipidemia Lipitor 20 mg -Dysphagia. Dysphagia 1 diet. Follow with speech. Aspiration precautions. -Hypothyroid Synthroid 100 g a day -Depression Zoloft -Essential hypertension Lopressor 100 mg twice a day -Paroxysmal atrial fibrillation, currently in sinus rhythm Amiodarone. Lopressor, eliquis Dysphagia 1 diet. MRI pending. Aspiration precautions. Other medications to continue.
--- NOTE | 2022-10-29 00:01 | EEG ---
ELECTROENCEPHALOGRAM REPORT PREAMBLE: This is a 71-year-old female with altered mental status, rule out CVA versus seizure. The patient has history of CVA and dementia. EEG FINDINGS: This is a 21-channel digital EEG recorded with video component, utilizing 10/20 International System with referential and bipolar montages. Background consists of moderately well-developed and poorly-regulated, mixed frequencies of low-amplitude theta and delta slowing seen in bihemispheric region. Background does not seem to be reactive to eye opening or closing. The photic driving response was not seen. The patient was mumbling during most of the study; therefore, some muscle artifacts were seen. No focal or generalized epileptiform activity was seen. Different stages of sleep were not seen. IMPRESSION: This is an abnormal EEG due to background slowing of at least moderate degree. This is suggestive of generalized cerebral dysfunction as can be seen with toxic metabolic encephalopathy or related to diffuse structural brain abnormality. Clinical correlation is recommended. No obvious epileptiform activity was seen. MMODL / IJN: [id number] /
--- NOTE | 2022-10-29 02:07 | P.PN ---
Subjective Progress Note Date: 10/28/22 Patient was seen for a follow-up. Patient is laying comfortably in the bed. Patient denies headache, no dizziness. Objective - Vital Signs Vital signs: Vital Signs Temp 98.4 F 10/28/22 16:00 Pulse 65 10/28/22 16:00 Resp 18 10/28/22 16:00 BP 151/57 10/28/22 16:00 Pulse Ox 97 10/28/22 16:00 FiO2 Intake & Output 10/27/22 10/28/22 10/28/22 18:59 06:59 18:59 Weight 89.947 kg Other: Voiding Method External Catheter - Exam Patient's examination is essentially unchanged. She is mentally more clear. Speaking more clearly. - Labs CBC & Chem 7: 10/27/22 10:43 10/27/22 10:43 Labs: Abnormal Lab Results - Last 24 Hours (Table) 10/27/22 10/28/22 Range/Units 09:00 10:06 POC Glucose (mg/dL) 149 H (70-110) mg/dL HDL Cholesterol 37.40 L (40.00-60.00) mg/dL Assessment and Plan Assessment: * Worsening of baseline left hemiparesis, slurred speech, rule out new stroke. * History of CVA in the right MCA vascular territory, with left hemiparesis * History of remote pontine stroke based upon CT head * Hypertension * Mild diabetes * Dementia * X tobacco use Plan: * Await MRI of the brain evaluate for new stroke. * Resume Eliquis. May add low-dose aspirin. I would avoid placing on dual antiplatelet medication along with Eliquis. We will decrease aspirin from 325 down to 81 mg daily. * CTA of the neck and head showed no evidence of dissection of the cervical internal carotid arteries or vertebral arteries or any evidence of significant stenosis at the carotid bifurcations. No evidence of high-grade stenosis or intracranial aneurysm. Chronic appearing right MCA territory infarct with encephalomalacia. Chronic appearing central vinay small infarct. Left upper lobe 1.9 x 1.5 cm pulmonary nodule concerning for possible malignancy. Further evaluation with PET/CT is recommended. * Internal medicine to address possible left upper lobe mass. * 2-D echo revealed left-ventricular ejection fraction is 55-60%. Normal left atrial size. Negative bubble study. * EEG was abnormal due to background slowing of at least moderate degree, suggestive of encephalopathy. No epileptiform activity was seen. * Hemoglobin A1c 6.0, fasting lipid panel with cholesterol 127, LDL 62, HDL 37 and triglycerides 136. Continue Lipitor 80 mg daily. * Continue B12. * PT OT, speech therapy * Dr. Eulogio Ferreira will cover neurology service over the weekend.
[2022-10-29] MEDS: SODIUM CHLORIDE 0.9% 1,000 ML IV SCH ×3 (05:29→19:43)
[2022-10-29] MEDS: SERTRALINE 25 MG TAB PO SCH (05:57)
[2022-10-29] MEDS: LEVOTHYROXINE 100 MCG TAB PO SCH (05:57)
[2022-10-29] MEDS: ASCORBIC ACID 500 MG TAB PO SCH (08:52)
[2022-10-29] MEDS: AMIODARONE 200 MG TAB PO SCH (08:52)
[2022-10-29] MEDS: FOLIC ACID 1 MG TAB PO SCH (08:52)
[2022-10-29] MEDS: CHOLECALCIFEROL 25 MCG (1000 IU) TABLET PO SCH (08:52)
[2022-10-29] MEDS: LORazepam 0.5 MG TAB PO SCH ×3 (08:52→19:43)
[2022-10-29] MEDS: FAMOTIDINE 20 MG TAB PO SCH ×2 (08:52→19:42)
[2022-10-29] MEDS: ASPIRIN 81 MG PO SCH (08:52)
[2022-10-29] MEDS: APIXABAN 5 MG TAB PO SCH ×2 (08:52→19:42)
[2022-10-29] MEDS: cloNIDine HCL 0.1 MG TAB PO SCH ×2 (08:52→19:43)
[2022-10-29] MEDS: CYANOCOBALAMIN 500 MCG TAB PO SCH (08:53)
--- NOTE | 2022-10-29 13:44 | P.CNPUL ---
History of Present Illness Consult date: 10/29/22 Requesting physician: Isaih Hammond Reason for consult: other (Lung nodule) Chief complaint: Possible stroke History of present illness: This is a 71-year-old female with history of previous CVA, with residual left sided weakness, dementia, [facility] Patient presen janice to the hospital yesterday on 10:29 AM for possible new stroke. Apparently the patient was witnessed to have increased facial droop, and her speech was also affected. The patient herself is not a great historian, she had previous 2 strokes in the past. Last one was in May 23. Patient was brought into the hospital, and she was noted to have increased slurred speech and increased weakness on the left side. CT of the head showed no acute intracranial process. However there was evidence of chronic large right MCA territory infarct with encephalomalacia. There was also nonspecific white matter changes likely related to chronic small vessel disease. CT angiogram, showed a very suspicious left upper lobe nodule in the left upper lobe medially. Patient has been a smoker in the past, but could not elaborate as to when she stopped smoking. In the chart it says that the patient quit smoking about 15 years ago. At any rate the nodule seen on the CT is very highly suspicious for bronchogenic carcinoma and I am recommending outpatient follow-up PET scan on outpatient basis, patient may eventually require navigational bronchoscopy for tissue diagnosis. No previous x-rays of the chest noted on the chart. Review of Systems ROS unobtainable: due to mental status Past Medical History Past Medical History: CVA/TIA, Hyperlipidemia, Hypertension, Renal Disease, Rheumatoid Arthritis (RA), Thyroid Disorder History of Any Multi-Drug Resistant Organisms: None Reported Past Surgical History: Orthopedic Surgery Past Psychological History: Anxiety Smoking Status: Former smoker Past Alcohol Use History: None Reported Past Drug Use History: None Reported Medications and Allergies Home Medications Medication Instructions Recorded Confirmed Type Acetaminophen Tab [Tylenol] 650 mg PO Q6H PRN 10/27/22 10/27/22 History Albuterol Nebulized [Ventolin 2.5 mg INHALATION RT-Q8H PRN 10/27/22 10/27/22 His tory Nebulized] Amiodarone [Cordarone] 200 mg PO DAILY 10/27/22 10/27/22 History Apixaban [Eliquis] 5 mg PO BID 10/27/22 10/27/22 History Ascorbic Acid [Vitamin C] 1,000 mg PO DAILY 10/27/22 10/27/22 History Atorvastatin [Lipitor] 20 mg PO HS 10/27/22 10/27/22 History Cholecalciferol [Vitamin D3 (25 50 mcg PO DAILY 10/27/22 10/27/22 History Mcg = 1000 Iu)] Cyanocobalamin (Vitamin B-12) 2,000 mcg PO DAILY 10/27/22 10/27/22 History [Vitamin B-12] Docusate [Colace] 100 mg PO DAILY 10/27/22 10/27/22 History Etanercept [Enbrel] 50 mg SQ FR 10/27/22 10/27/22 History Famotidine [Pepcid] 20 mg PO BID 10/27/22 10/27/22 History Folic Acid 0.8 mg PO DAILY 10/27/22 10/27/22 History LORazepam [Ativan] 0.5 mg PO TID@0800,1500,2100 10/27/22 10/27/22 History Levothyroxine Sodium [Synthroid] 100 mcg PO DAILY 10/27/22 10/27/22 History Methotrexate/Pf [Reditrex 15 15 mg SQ FR 10/27/22 10/27/22 History mg/0.6 ml Syringe] Metoprolol Tartrate [Lopressor] 100 mg PO BID 10/27/22 10/27/22 History Ondansetron [Zofran] 4 mg PO Q8H PRN 10/27/22 10/27/22 History Sertraline [Zoloft] 25 mg PO DAILY@0700 10/27/22 10/27/22 History Triamcinolone 0.1% Cream [Kenalog 1 applicatio TOPICAL BID 10/27/22 10/27/22 History 0.1% Cream] Tums Chewy Delights 1177mg Calcium 2,354 mg PO Q4H PRN 10/27/22 10/27/22 History Carb risperiDONE [RisperDAL] 0.5 mg PO HS 10/27/22 10/27/22 History Allergies Allergy/AdvReac Type Severity Reaction Status Date / Time celecoxib [From Celebrex] Allergy Unknown Verified 10/27/22 11:02 Physical Exam Vitals: Vital Signs Temp Pulse Resp BP Pulse Ox 10/29/22 08:00 98.4 F 68 18 174/90 98 10/29/22 04:00 97.9 F 76 18 158/64 99 10/29/22 00:00 98.1 F 86 20 131/55 95 10/28/22 20:00 98.0 F 75 19 147/50 96 10/28/22 16:00 98.4 F 65 18 151/57 97 10/28/22 14:00 18 Intake and Output 10/28/22 10/29/22 10/29/22 22:59 06:59 14:59 Output Total 285 Balance -285 Output: Post Void Residual 285 Other: Voiding Method External Catheter External Catheter External Catheter Physical Exam: Revealed a 71-year-old female in no distress. Head: Atraumatic, normocephalic. HEENT:[Neck is supple.] [No neck masses.] [No thyromegaly.] [No JVD.] Left facial droop is noted. Speech is slightly slurred. Chest: [Clear throughout, no crackles, no rhonchi, no wheezes.] Cardiac Exam: [Normal S1 and S2, no S3 gallop, no murmur.] Abdomen: [Soft, nontender, no megaly, no rebound, no guarding, normal bowel sounds.] Extremities: [No clubbing, no edema, no cyanosis.] Neurological Exam: Left sided hemiparesis is noted. Patient is oriented to place, person, slight confusion noted otherwise Results - Laboratory Findings CBC and BMP: 10/27/22 10:43 10/27/22 10:43 PT/INR, D-dimer PT 10.6 sec (9.0-12.0) 10/27/22 10:43 INR 1.0 (<1.2) 10/27/22 10:43 Abnormal lab findings: Abnormal Labs 10/27/22 10/27/22 10/27/22 09:00 10:43 10:43 APTT 21.4 L Potassium 3.4 L Glucose 198 H POC Glucose (mg/dL) HDL Cholesterol 37.40 L 10/28/22 10:06 APTT Potassium Glucose POC Glucose (mg/dL) 149 H HDL Cholesterol - Diagnostic Findings Additional studies: CT angiogram of the head and neck was reviewed, as noted in HPI, patient has a suspicious left upper lobe nodule. Measuring 1.91.5 cm again highly suspicious Assessment and Plan Assessment: Impression: 1 acute CVA with worsening baseline left hemiparesis and slurred speech 2 left upper lobe nodule highly suspicious for bronchogenic carcinoma 3 ex-smoker 4 history of diabetes without complications 5 underlying dementia 6 previous history of CVA/strokes 2 Recommendation: Continue present treatment plan as outlined by neurology Patient will need outpatient PET scan post discharge and outpatient follow-up, Based on the PET scan, patient will possibly deep tissue diagnosis, however this could all be addressed on an outpatient basis. Neck short patient has follow-up in our pulmonary clinic post discharge. Time with Patient: Greater than 30
--- NOTE | 2022-10-29 13:52 | P.PN ---
Progress Note - Text Progress Note Date: 10/29/22 Chief Complaint: Left-sided weakness This is a 71-year-old patient who follows a Dr. Reynoso. Chronic stable medical conditions include hypertension, hyperlipidemia, rheumatoid arthritis, hypothyroid, stroke with left-sided weakness that has resolved, anxiety. Patient does have a walker Wheelchair. Sr. drops in the hospital help her out. For 2 months patient noticed weakness of the left arm. Some slurring of speech off and on. No fever no chills. Occasionally she'll level cough with drinking water. Admitted with worsening of stroke. October 28: CT of the neck and head unremarkable. MRI of the brain ordered. Pulmonary consulted for left lung nodule. Patient was a bit agitated earlier today. Pending speech evaluation. Sleepy today. Really hasn't eaten much. Lasix on dysphagia 1 diet. October 29: More awake today. Answering questions. Decreased appetite. Spoke to the 8 to have the patient eat. MRI done but results pending. EEG negative for epileptiform activity. Active Medications Acetaminophen (Acetaminophen Tab 325 Mg Tab) 650 mg PO Q6H PRN PRN Reason: Pain or Fever > 100.5 Albuterol Sulfate (Albuterol Nebulized 2.5 Mg/3 Ml) 2.5 mg INHALATION RT-Q8H PRN PRN Reason: Shortness Of Breath Amiodarone HCl (Amiodarone 200 Mg Tab) 200 mg PO DAILY [facility] Last Admin: 10/29/22 08:52 Dose: 200 mg Apixaban (Apixaban 5 Mg Tab) 5 mg PO BID [facility]; Protocol Last Admin: 10/29/22 08:52 Dose: 5 mg Ascorbic Acid (Ascorbic Acid 500 Mg Tab) 1,000 mg PO DAILY [facility] Last Admin: 10/29/22 08:52 Dose: 1,000 mg Aspirin (Aspirin 81 Mg) 81 mg PO DAILY [facility] Last Admin: 10/29/22 08:52 Dose: 81 mg Atorvastatin Calcium (Atorvastatin 80 Mg Tab) 80 mg PO HS [facility] Last Admin: 10/28/22 08:40 Dose: 80 mg Cholecalciferol (Cholecalciferol 25 Mcg (1000 Iu) Tablet) 50 mcg PO DAILY [facility] Last Admin: 10/29/22 08:52 Dose: 50 mcg Clonidine (Clonidine Hcl 0.1 Mg Tab) 0.1 mg PO BID [facility] Last Admin: 10/29/22 08:52 Dose: 0.1 mg Cyanocobalamin (Cyanocobalamin 500 Mcg Tab) 2,000 mcg PO DAILY [facility] Last Admin: 10/29/22 08:53 Dose: 2,000 mcg Famotidine (Famotidine 20 Mg Tab) 20 mg PO BID [facility] Last Admin: 10/29/22 08:52 Dose: 20 mg Folic Acid (Folic Acid 1 Mg Tab) 1 mg PO DAILY [facility] Last Admin: 10/29/22 08:52 Dose: 1 mg Sodium Chloride (Saline 0.9%) 1,000 mls @ 100 mls/hr IV .Q10H [facility] Last Admin: 10/29/22 05:29 Dose: 100 mls/hr Levothyroxine Sodium (Levothyroxine 100 Mcg Tab) 100 mcg PO DAILY@0630 [facility] Last Admin: 10/29/22 05:57 Dose: 100 mcg Lorazepam (Lorazepam 0.5 Mg Tab) 0.5 mg PO TID@0800,1500,2100 [facility] Last Admin: 10/29/22 08:52 Dose: 0.5 mg Etanercept [Enbrel] (50 Mg/Ml Syringe) 50 mg SQ FR [facility] Last Admin: 10/28/22 08:52 Dose: Not Given Methotrexate/Pf [ Reditrex 15 Mg/0.6 Ml Syringe] 15 Mg/0. 6 Ml Each 15 mg SQ FR [facility] Last Admin: 10/28/22 08:51 Dose: Not Given Ondansetron HCl (Ondansetron 4 Mg Tab) 4 mg PO Q8H PRN PRN Reason: Nausea Risperidone (Risperidone 0.5 Mg Tab) 0.5 mg PO HS [facility] Last Admin: 10/28/22 08:39 Dose: 0.5 mg Sertraline HCl (Sertraline 25 Mg Tab) 25 mg PO DAILY@0700 [facility] Last Admin: 10/29/22 05:57 Dose: 25 mg Triamcinolone Acetonide (Triamcinolone 0.1% Cream 80 Gm Tube) 1 applic TOPICAL BID [facility]; Protocol Last Admin: 10/28/22 21:43 Dose: 1 applic Past medical history to include: Stroke, hyperlipidemia, hypertension, kidney disease, RA, hypothyroid, anxiety, Social history: Lives alone. Smoked in the past. Sr. drops and aVF that time to help her out. Does use a wheelchair at a walker. Physical examination: VITAL SIGNS: 97.6, 80, 20, 142/76, 97% room air GENERAL:. BMI 35.1, laying in bed sleepy, but arousable EYES: Pupils equal. Conjunctiva normal. HEENT: External appearance of nose and ears normal, oral cavity grossly normal. NECK: JVD not raised; masses not palpable. HEART: First and second heart sounds are normal; no edema. LUNGS: Respiratory rate normal; decreased breath sounds. ABDOMEN: Soft, nontender, liver spleen not palpable, no masses palpable. PSYCH: Answering questions appropriately MUSCULOSKELETAL:No Clubbing/cyanosis;muscles-grossly intact. OA NEUROLOGICAL: [Cranial nerves grossly intact; no facial asymmetry, power in the left arm 3/5. Mouth slightly to the left. INVESTIGATIONS, reviewed in the clinical context: EEG: Negative for epileptiform activity. Encephalopathy findings 2-D echo: EF 55-60%. Negative bubble study LDL 62 White count 5.4 hemoglobin 12.3 platelets 191 potassium 3.4 creatinine 0.76 EKG tracing personally reviewed by me-normal sinus rhythm. Nonspecific ST-T wave changes. CT brain without contrast: Chronic large right MCA territory infarct with encephalomalacia. Chest x-ray film personally reviewed by me-pulmonary artery prominent. Borderline cardiomegaly CT angiogram head and neck: Unremarkable Assessment and plan: -Presented with slurring of speech. Probably TIA versus worsening of previous stroke. Antiplatelet agents. Pending MRI results -Acute metabolic encephalopathy. -Left arm weakness from a previous stroke in the right MCA territory. Patient reports of 2 months duration. Could be some worsening. MRI brain pending -Chronic medical debility at her baseline uses a walker or wheelchair. -Hyperlipidemia Lipitor 20 mg -Dysphagia. Dysphagia 1 diet. Follow with speech. Aspiration precautions. -Hypothyroid Synthroid 100 g a day -Depression Zoloft -Essential hypertension Lopressor 100 mg twice a day -Paroxysmal atrial fibrillation, currently in sinus rhythm Amiodarone. Lopressor, eliquis Dysphagia 1 diet. MRI results pending. Other medications to continue
[2022-10-29] MEDS: TRIAMCINOLONE 0.1% CREAM 80 GM TUBE TOPICAL SCH ×2 (14:53→19:51)
--- NOTE | 2022-10-29 16:26 | MR ---
EXAMINATION TYPE: MR brain wo con DATE OF EXAM: 10/29/2022 COMPARISON: Correlation CT 10/27/2022 HISTORY: 71-year-old female Acute CVA TECHNIQUE: Multiplanar, multisequence images of the brain and brainstem were acquired before without IV contrast. Diffusion weighted imaging is performed. FINDINGS: Redemonstrated are extensive encephalomalacia along the right MCA territory, lateral right frontopari etal lobes extending into the superior anterior right temporal lobe. However, DWI sequence shows prominent restricted diffusion marginating the area of encephalomalacia. Associated T2/FLAIR bright signal change. Additional 2.1 x 0.8 cm area of restricted diffusion posterior left parietal subcortical region. Mild generalized supratentorial volume loss. No evidence of midline shift, herniation, effacement of basal cisterns, or extra-axial fluid collecti on. The ventricles and sulci are age-appropriate. Major intracranial flow voids are intact. T2/FLAIR weighted sequences show moderate to severe patchy white matter hyperintensities throughout b oth cerebral hemispheres and also within the left cerebellum and bilateral paramedian vinay. Old 8 mm lacunar infarct within the left paramedian vinay. T2* sequence shows some susceptibility along the region of patient's right MCA territory encephalomal acia. Coronal sequence suggests some gyral hemosiderin deposition. Midline structures demonstrate normal morphology. The craniocervical junction is normal. Trace mucosal thickening ethmoid air cells. Globes are intact. IMPRESSION: 1. Encephalomalacia on the right corresponding to an old right MCA territory infarct. However, there is bright signal on DWI suggesting surrounding acute to subacute ischemia in this same territory. Gre ater than 6 hours in duration given bright T2 signal. 2. Additional area of acute to subacute infarct in the subcortical posterior left parietal lobe measu ring 2.1 x 0.8 cm. 3. Background moderate to severe patchy burden of chronic small vessel ischemic disease. Old 8 mm lac unar infarct within the vinay.
[2022-10-29] MEDS: risperiDONE 0.5 MG TAB PO SCH (19:42)
[2022-10-29] MEDS: ATORVASTATIN 80 MG TAB PO SCH (19:42)
[2022-10-30] MEDS: SODIUM CHLORIDE 0.9% 1,000 ML IV SCH ×2 (05:33→15:35)
[2022-10-30] MEDS: SERTRALINE 25 MG TAB PO SCH (05:33)
[2022-10-30] MEDS: LEVOTHYROXINE 100 MCG TAB PO SCH (05:33)
[2022-10-30] MEDS: CYANOCOBALAMIN 500 MCG TAB PO SCH (08:13)
[2022-10-30] MEDS: ASCORBIC ACID 500 MG TAB PO SCH (08:13)
[2022-10-30] MEDS: LORazepam 0.5 MG TAB PO SCH (08:13)
[2022-10-30] MEDS: CHOLECALCIFEROL 25 MCG (1000 IU) TABLET PO SCH (08:13)
[2022-10-30] MEDS: AMIODARONE 200 MG TAB PO SCH (08:13)
[2022-10-30] MEDS: cloNIDine HCL 0.1 MG TAB PO SCH (08:13)
[2022-10-30] MEDS: APIXABAN 5 MG TAB PO SCH ×2 (08:13→21:42)
[2022-10-30] MEDS: FOLIC ACID 1 MG TAB PO SCH (08:13)
[2022-10-30] MEDS: ASPIRIN 81 MG PO SCH (08:13)
[2022-10-30] MEDS: FAMOTIDINE 20 MG TAB PO SCH ×2 (08:13→21:42)
[2022-10-30] MEDS: TRIAMCINOLONE 0.1% CREAM 80 GM TUBE TOPICAL SCH ×2 (10:00→21:43)
--- NOTE | 2022-10-30 12:18 | P.PN ---
Subjective Progress Note Date: 10/30/22 Principal diagnosis: Acute CVA This is a 71-year-old female with history of previous CVA, with residual left sided weakness, dementia, [facility] Patient presented to the hospital yesterday on 10:29 AM for possible new stroke. Apparently the patient was witnessed to have increased facial droop, and her speech was also affected. The patient herself is not a great historian, she had previous 2 strokes in the past. Last one was in May 23. Patient was brought into the hospital, and she was noted to have increased slurred speech and increased weakness on the left side. CT of the head showed no acute intracranial process. However there was evidence of chronic large right MCA territory infarct with encephalomalacia. There was also nonspecific white matter changes likely related to chronic small vessel disease. CT angiogram, showed a very suspicious left upper lobe nodule in the left upper lobe medially. Patient has been a smoker in the past, but could not elaborate as to when she stopped smoking. In the chart it says that the patient quit smoking about 15 years ago. At any rate the nodule seen on the CT is very highly suspicious for bronchogenic carcinoma and I am recommending outpatient follow-up PET scan on outpatient basis, patient may eventually require navigational bronchoscopy for tissue diagnosis. No previous x-rays of the chest noted on the chart. Patient was seen again today on 10/30/2022, basically about the same, her neurological issues are being addressed by neurology on the case, I will see the patient seems to have had another CVA, I'm seeing the patient for her left upper lobe nodule and I'm recommending outpatient follow-up. Patient will need a PET scan on outpatient basis, and depending on her overall neurological status will decide as what to do for tissue diagnosis of her left upper lobe nodule. Objective - Vital Signs Vital signs: Vital Signs Temp 98.4 F 10/30/22 08:15 Pulse 102 H 10/30/22 08:15 Resp 18 10/30/22 08:15 BP 176/85 10/30/22 08:15 Pulse Ox 98 10/30/22 08:15 FiO2 Intake & Output 10/29/22 10/30/22 10/30/22 18:59 06:59 18:59 Intake Total 300 Output Total 225 Balance 300 -225 Intake: Intake, IV Titration 300 Amount Sodium Chloride 0.9% 1, 300 000 ml @ 100 mls/hr IV . Q10H [facility] Rx#:[id number] Output: Urine 225 Other: Voiding Method External Catheter External Catheter External Catheter - Exam Physical Exam: Revealed a 71-year-old female in no distress. On room air Head: Atraumatic, normocephalic. HEENT:[Neck is supple.] [No neck masses.] [No thyromegaly.] [No JVD.] Left facial droop is noted. Speech is slightly slurred. Chest: [Clear throughout, no crackles, no rhonchi, no wheezes.] Cardiac Exam: [Normal S1 and S2, no S3 gallop, no murmur.] Abdomen: [Soft, nontender, no megaly, no rebound, no guarding, normal bowel sounds.] Extremities: [No clubbing, no edema, no cyanosis.] Neurological Exam: Left sided hemiparesis is noted. Patient is oriented to place, person, slight confusion noted otherwise - Labs CBC & Chem 7: 10/27/22 10:43 10/27/22 10:43 Assessment and Plan Assessment: Impression: 1 acute CVA with worsening baseline left hemiparesis and slurred speech 2 left upper lobe nodule highly suspicious for bronchogenic carcinoma 3 ex-smoker 4 history of diabetes without complications 5 underlying dementia 6 previous history of CVA/strokes 2 Recommendation: Continue present treatment plan as outlined by neurology Patient will need outpatient PET scan post discharge and outpatient follow-up, Based on the PET scan, patient will possibly deep tissue diagnosis, however this could all be addressed on an outpatient basis. Neck short patient has follow-up in our pulmonary clinic post discharge. Time with Patient: Less than 30
--- NOTE | 2022-10-30 13:03 | P.PN ---
Subjective Progress Note Date: 10/30/22 I am seeing the patient for the first time during this admission. Please refer to Dr. Tafoya's notes for further details. It seems the patient has worsening left hemiparesis, slurred speech. Objective - Vital Signs Vital signs: Vital Signs Temp 98.7 F 10/30/22 12:46 Pulse 77 10/30/22 12:46 Resp 18 10/30/22 12:46 BP 163/63 10/30/22 12:46 Pulse Ox 100 10/30/22 12:46 FiO2 Intake & Output 10/29/22 10/30/22 10/30/22 18:59 06:59 18:59 Intake Total 300 Output Total 225 Balance 300 -225 Intake: Intake, IV Titration 300 Amount Sodium Chloride 0.9% 1, 300 000 ml @ 100 mls/hr IV . Q10H [facility] Rx#:[id number] Output: Urine 225 Other: Voiding Method External Catheter External Catheter External Catheter - Exam Is moderately drowsy but is awakeable to voice. Is oriented to self only. She is able to follow few simple commands. Left facial weakness. No dysarthria. Moving the right upper extremity above gravity and wiggling toes on right. Not moving left upper and difficult to assess left lower because of cooperation. - Labs CBC & Chem 7: 10/27/22 10:43 10/27/22 10:43 Assessment and Plan Assessment: * Worsening of baseline left hemiparesis, slurred speech due to acute to subacute ischemia over the right and left parietal lobe: Unknown exact etiology but seems embolic/cardioembolic * History of CVA in the right MCA vascular territory, with left hemiparesis * History of remote pontine stroke based upon CT head * Left pulmonary nodule concerning for possible malignancy * Hypertension * Mild diabetes * Dementia * X tobacco use Plan: * MRI of the brain: It is reported as encephalomalacia on the right corresponded to old right MCA territory infarct. However there is bright signal on DWI suggest surrounding acute to subacute ischemia in the same territory. Greater than 6 hours in duration given the bright T2 signal. Additional area of acute to subacute infarct in the subcortical posterior left parietal lobe measuring 2.10.8 cm. Background moderate to severe patchy burden chronic small vessel ischemic disease. Old 8 mm lacunar infarct and within the vinay. * NO IV tpa for recent stroke since unknown last normal but appears at least >3 days out and risk outweigh benefits. * Currenlty Eliquis is resumed and patient was started on low dose ASA 81mg daily. * CTA of the neck and head showed no evidence of dissection of the cervical internal carotid arteries or vertebral arteries or any evidence of significant stenosis at the carotid bifurcations. No evidence of high-grade stenosis or intracranial aneurysm. Chronic appearing right MCA territory infarct with encephalomalacia. Chronic appearing central vinay small infarct. Left upper lobe 1.9 x 1.5 cm pulmonary nodule concerning for possible malignancy. Further evaluation with PET/CT is recommended. * Internal medicine to address possible left upper lobe mass. * 2-D echo revealed left-ventricular ejection fraction is 55-60%. Normal left atrial size. Negative bubble study. * EEG was abnormal due to background slowing of at least moderate degree, suggestive of encephalopathy. No epileptiform activity was seen. * Hemoglobin A1c 6.0, fasting lipid panel with cholesterol 127, LDL 62, HDL 37 and triglycerides 136. Continue Lipitor 80 mg daily. * Continue B12. * PT OT, speech therapy * For DVT prophylaxis: On eliquis. The plan is discussed with her nurse. Dr. Tafoya will start neurology service tomorrow A.M. Time with Patient: Less than 30
--- NOTE | 2022-10-30 14:38 | P.PN ---
Progress Note - Text Progress Note Date: 10/30/22 Chief Complaint: Left-sided weakness This is a 71-year-old patient who follows a Dr. Reynoso. Chronic stable medical conditions include hypertension, hyperlipidemia, rheumatoid arthritis, hypothyroid, stroke with left-sided weakness that has resolved, anxiety. Patient does have a walker Wheelchair. Sr. drops in the hospital help her out. For 2 months patient noticed weakness of the left arm. Some slurring of speech off and on. No fever no chills. Occasionally she'll level cough with drinking water. Admitted with worsening of stroke. October 28: CT of the neck and head unremarkable. MRI of the brain ordered. Pulmonary consulted for left lung nodule. Patient was a bit agitated earlier today. Pending speech evaluation. Sleepy today. Really hasn't eaten much. Lasix on dysphagia 1 diet. October 29: More awake today. Answering questions. Decreased appetite. Spoke to the 8 to have the patient eat. MRI done but results pending. EEG negative for epileptiform activity. October 30: Patient has been more awake. Delirious. Keeps asking for deep dish pizza from [place]. Doesn't hospital food. Will DC Ativan. Continue IV fluids. MRI brain does show acute area of infarct in the subcortical posterior left parietal lobe. Active Medications Acetaminophen (Acetaminophen Tab 325 Mg Tab) 650 mg PO Q6H PRN PRN Reason: Pain or Fever > 100.5 Albuterol Sulfate (Albuterol Nebulized 2.5 Mg/3 Ml) 2.5 mg INHALATION RT-Q8H PRN PRN Reason: Shortness Of Breath Amiodarone HCl (Amiodarone 200 Mg Tab) 200 mg PO DAILY [facility] Last Admin: 10/30/22 08:13 Dose: 200 mg Apixaban (Apixaban 5 Mg Tab) 5 mg PO BID [facility]; Protocol Last Admin: 10/30/22 08:13 Dose: 5 mg Ascorbic Acid (Ascorbic Acid 500 Mg Tab) 1,000 mg PO DAILY [facility] Last Admin: 10/30/22 08:13 Dose: 1,000 mg Aspirin (Aspirin 81 Mg) 81 mg PO DAILY [facility] Last Admin: 10/30/22 08:13 Dose: 81 mg Atorvastatin Calcium (Atorvastatin 80 Mg Tab) 80 mg PO [facility] Last Admin: 10/29/22 19:42 Dose: 80 mg Cholecalciferol (Cholecalciferol 25 Mcg (1000 Iu) Tablet) 50 mcg PO DAILY [facility] Last Admin: 10/30/22 08:13 Dose: 50 mcg Clonidine (Clonidine Hcl 0.1 Mg Tab) 0.1 mg PO BID [facility] Last Admin: 10/30/22 08:13 Dose: 0.1 mg Cyanocobalamin (Cyanocobalamin 500 Mcg Tab) 2,000 mcg PO DAILY [facility] Last Admin: 10/30/22 08:13 Dose: 2,000 mcg Famotidine (Famotidine 20 Mg Tab) 20 mg PO BID [facility] Last Admin: 10/30/22 08:13 Dose: 20 mg Folic Acid (Folic Acid 1 Mg Tab) 1 mg PO DAILY [facility] Last Admin: 10/30/22 08:13 Dose: 1 mg Sodium Chloride (Saline 0.9%) 1,000 mls @ 100 mls/hr IV .Q10H [facility] Last Admin: 10/30/22 05:33 Dose: 100 mls/hr Levothyroxine Sodium (Levothyroxine 100 Mcg Tab) 100 mcg PO DAILY@0630 [facility] Last Admin: 10/30/22 05:33 Dose: 100 mcg Etanercept [Enbrel] (50 Mg/Ml Syringe) 50 mg SQ FR [facility] Last Admin: 10/28/22 08:52 Dose: Not Given Methotrexate/Pf [ Reditrex 15 Mg/0.6 Ml Syringe] 15 Mg/0. 6 Ml Each 15 mg SQ FR [facility] Last Admin: 10/28/22 08:51 Dose: Not Given Ondansetron HCl (Ondansetron 4 Mg Tab) 4 mg PO Q8H PRN PRN Reason: Nausea Risperidone (Risperidone 0.5 Mg Tab) 0.5 mg PO HS [facility] Last Admin: 10/29/22 19:42 Dose: 0.5 mg Sertraline HCl (Sertraline 25 Mg Tab) 25 mg PO DAILY@0700 [facility] Last Admin: 10/30/22 05:33 Dose: 25 mg Triamcinolone Acetonide (Triamcinolone 0.1% Cream 80 Gm Tube) 1 applic TOPICAL BID [facility]; Protocol Last Admin: 10/30/22 10:00 Dose: 1 applic Past medical history to include: Stroke, hyperlipidemia, hypertension, kidney disease, RA, hypothyroid, anxiety, Social history: Lives alone. Smoked in the past. Sr. drops and aVF that time to help her out. Does use a wheelchair at a walker. Physical examination: VITAL SIGNS: 98.4, 1 or 2, 18, 163/63, red percent room air GENERAL:. BMI 35.1, laying in bed a bit sleepy but answering questions to delirious. EYES: Pupils equal. Conjunctiva normal. HEENT: External appearance of nose and ears normal, oral cavity grossly normal. NECK: JVD not raised; masses not palpable. HEART: First and second heart sounds are normal; no edema. LUNGS: Respiratory rate normal; decreased breath sounds. ABDOMEN: Soft, nontender, liver spleen not palpable, no masses palpable. PSYCH: Answering some questions. Delirious. MUSCULOSKELETAL:No Clubbing/cyanosis;muscles-grossly intact. OA NEUROLOGICAL: [Cranial nerves grossly intact; no facial asymmetry, power in the left arm 3/5. Mouth slightly to the left. INVESTIGATIONS, reviewed in the clinical context: MRI brain: Additional area of acute to subacute infarct in the subcortical posterior left parietal lobe 2.1 x 0.8 cm. Encephalomalacia on the right side. Also bright signal suggesting surrounding acute to subacute ischemia in the same territory. EEG: Negative for epileptiform activity. Encephalopathy findings 2-D echo: EF 55-60%. Negative bubble study LDL 62 White count 5.4 hemoglobin 12.3 platelets 191 potassium 3.4 creatinine 0.76 EKG tracing personally reviewed by me-normal sinus rhythm. Nonspecific ST-T wave changes. CT brain without contrast: Chronic large right MCA territory infarct with encephalomalacia. Chest x-ray film personally reviewed by me-pulmonary artery prominent. Borderline cardiomegaly CT angiogram head and neck: Unremarkable Assessment and plan: -Acute stroke in the subcortical posterior left parietal lobe 2.1 x 0.8 cm. Also additional area of acute/subacute ischemia in the area corresponding to the old right MCA territory territory. Eliquis. Add aspirin 81 mg. -Acute metabolic encephalopathy/delirium. Could be combination of stroke and also patient being on Ativan scheduled. Stop Ativan. -Chronic right-sided encephalomalacia in the right MCA did territory with left arm weakness -Chronic medical debility at her baseline uses a walker or wheelchair. -Hyperlipidemia Lipitor 20 mg -Dysphagia. Dysphagia 1 diet. Follow with speech. Aspiration precautions. -Hypothyroid Synthroid 100 g a day -Depression Zoloft -Essential hypertension Lopressor 100 mg twice a day. Stop clonidine. Add lisinopril hydrochlorothiazide 10/12.5 twice a day -Paroxysmal atrial fibrillation, currently in sinus rhythm Amiodarone. Kristiepressorneoquolvin Dysphagia 1 diet. Stop Ativan. Other medications to continue. Add baby aspirin. Continue IV fluids. Change clonidine to Lopressor 20 mg twice a day. Also had less verbal hydrochlorothiazide 10/12.5 twice a day. Patient not ready for discharge
[2022-10-30] MEDS: METOPROLOL TARTRATE 50 MG TAB PO SCH (16:27)
[2022-10-30] MEDS: LISINOPRIL-HCTZ 10-12.5 MG 1 EACH TAB PO SCH (21:41)
[2022-10-30] MEDS: ATORVASTATIN 80 MG TAB PO SCH (21:42)
[2022-10-30] MEDS: risperiDONE 0.5 MG TAB PO SCH (21:42)
[2022-10-31] MEDS: SODIUM CHLORIDE 0.9% 1,000 ML IV SCH ×2 (05:56→21:20)
[2022-10-31] MEDS: LEVOTHYROXINE 100 MCG TAB PO SCH (05:57)
[2022-10-31] MEDS: SERTRALINE 25 MG TAB PO SCH (05:57)
[2022-10-31] MEDS: AMIODARONE 200 MG TAB PO SCH (09:26)
[2022-10-31] MEDS: LISINOPRIL-HCTZ 10-12.5 MG 1 EACH TAB PO SCH ×2 (09:26→21:24)
[2022-10-31] MEDS: ASPIRIN 81 MG PO SCH (09:26)
[2022-10-31] MEDS: ASCORBIC ACID 500 MG TAB PO SCH (09:26)
[2022-10-31] MEDS: FOLIC ACID 1 MG TAB PO SCH (09:26)
[2022-10-31] MEDS: CYANOCOBALAMIN 500 MCG TAB PO SCH (09:26)
[2022-10-31] MEDS: FAMOTIDINE 20 MG TAB PO SCH ×2 (09:27→21:23)
[2022-10-31] MEDS: CHOLECALCIFEROL 25 MCG (1000 IU) TABLET PO SCH (09:27)
[2022-10-31] MEDS: METOPROLOL TARTRATE 50 MG TAB PO SCH ×2 (09:27→21:23)
[2022-10-31] MEDS: APIXABAN 5 MG TAB PO SCH ×2 (09:27→21:23)
[2022-10-31] MEDS: TRIAMCINOLONE 0.1% CREAM 80 GM TUBE TOPICAL SCH ×2 (09:27→21:24)
--- NOTE | 2022-10-31 11:21 | P.CRDCN ---
History of Present Illness History of present illness: HISTORY OF PRESENT ILLNESS: This is a 71-year-old female with a past medical history significant for CVA, hypertension, hyperlipidemia, and paroxysmal atrial fibrillation. Patient follows in the office with Dr. Ojeda. We have been asked to see the patient in consultation for Chelle noguera with RVR. Patient examined at the bedside. Patient presented to the hospital from her [facility] secondary to worsening left-sided weakness and slurred speech. Patient is on anticoagulation on outpatient basis with Eliquis. MRI performed revealing acute to subacute CVA. Aspirin was added to patients medication regimen. Patient went into afib with RVR yesterday. However, this morning she is maintaining sinus mechanism. * EKG reveals sinus mechanism with no signs of acute ischemia. Repeat EKG reveals atrial fibrillation with RVR * Chest xray negative for acute process * Brain MRI: Encephalomalacia on the right corresponding to old infarct MCA territory infarct. However there is bright signal on DWI suggesting surrounding acute to subacute ischemia in the same territory. Additional area of acute to subacute infarct in the subcortical posterior left parietal lobe. * Laboratory data: WBC 5.4. Hemoglobin 12.3. Platelet count 191. Sodium 140. Potassium 3.4. BUN 16. Creatinine 0.76. * Current home cardiac medications include amiodarone 200 mg daily, Lipitor 20 mg at night, metoprolol tartrate 100 mg twice a day, and Eliquis 5mg BID * Echocardiogram obtained during this admission revealed ejection fraction 55- 60%. Negative bubble study. REVIEW OF SYSTEMS: At the time of my exam: CONSTITUTIONAL: Denies fever or chills. HEENT: Denies blurred vision, vision changes, or eye pain. Denies hemoptysis CARDIOVASCULAR: Denies chest pain. Denies orthopnea. Denies PND. Denies palpitations RESPIRATORY: Denies shortness of breath. GASTROINTESTINAL: Denies abdominal pain. Denies nausea or vomiting. HEMATOLOGIC: Denies bleeding disorders. GENITOURINARY: Denies any blood in urine. SKIN: Denies pruitis. Denies rash. PHYSICAL EXAM: VITAL SIGNS: Reviewed. GENERAL: Well-developed in no acute distress. HEENT: Head is normocephalic. Pupils are equal, round. Sclerae anicteric. Mucous membranes of the mouth are moist. Neck supple. No JVD or thyromegaly LUNGS: Respirations even and unlabored. Lungs essentially clear to auscultation bilaterally. HEART: Regular rate and rhythm. S1 and S2 heard. ABDOMEN: Soft. Nondistended. Nontender. EXTREMITIES: Left-sided weakness. No clubbing or cyanosis. Peripheral pulses intact. No lower extremity edema NEUROLOGIC: Awake and alert. Oriented x 3. ASSESSMENT: Worsening left sided weakness and slurred speech Acute to subacute CVA Paroxysmal atrial fibrillation, currently maintaining sinus mechanism History of CVA with left-sided weakness Hypertension Hyperlipidemia PLAN: Continue current cardiac medications Continue Eliquis. Patient also started on aspirin 81mg daily. Continue telemetry monitoring Nothing by mouth at midnight Patient to undergo COSMO tomorrow with Dr. Ojeda Further recommendations pending patient's course Nurse practitioner note has been reviewed by physician. Signing provider agrees with the documented findings, assessment, and plan of care. Past Medical History Past Medical History: CVA/TIA, Hyperlipidemia, Hypertension, Renal Disease, Rheumatoid Arthritis (RA), Thyroid Disorder History of Any Multi-Drug Resistant Organisms: None Reported Past Surgical History: Orthopedic Surgery Past Psychological History: Anxiety Smoking Status: Former smoker Past Alcohol Use History: None Reported Past Drug Use History: None Reported Medications and Allergies Home Medications Medication Instructions Recorded Confirmed Type Acetaminophen Tab [Tylenol] 650 mg PO Q6H PRN 10/27/22 10/27/22 History Albuterol Nebulized [Ventolin 2.5 mg INHALATION RT-Q8H PRN 10/27/22 10/27/22 History Nebulized] Amiodarone [Cordarone] 200 mg PO DAILY 10/27/22 10/27/22 History Apixaban [Eliquis] 5 mg PO BID 10/27/22 10/27/22 History Ascorbic Acid [Vitamin C] 1,000 mg PO DAILY 10/27/22 10/27/22 History Atorvastatin [Lipitor] 20 mg PO HS 10/27/22 10/27/22 History Cholecalciferol [Vitamin D3 (25 50 mcg PO DAILY 10/27/22 10/27/22 History Mcg = 1000 Iu)] Cyanocobalamin (Vitamin B-12) 2,000 mcg PO DAILY 10/27/22 10/27/22 History [Vitamin B-12] Docusate [Colace] 100 mg PO DAILY 10/27/22 10/27/22 History Etanercept [Enbrel] 50 mg SQ FR 10/27/22 10/27/22 History Famotidine [Pepcid] 20 mg PO BID 10/27/22 10/27/22 History Folic Acid 0.8 mg PO DAILY 10/27/22 10/27/22 History LORazepam [Ativan] 0.5 mg PO TID@0800,1500,2100 10/27/22 10/27/22 History Levothyroxine Sodium [Synthroid] 100 mcg PO DAILY 10/27/22 10/27/22 History Methotrexate/Pf [Reditrex 15 15 mg SQ FR 10/27/22 10/27/22 History mg/0.6 ml Syringe] Metoprolol Tartrate [Lopressor] 100 mg PO BID 10/27/22 10/27/22 History Ondansetron [Zofran] 4 mg PO Q8H PRN 10/27/22 10/27/22 History Sertraline [Zoloft] 25 mg PO DAILY@0700 10/27/22 10/27/22 History Triamcinolone 0.1% Cream [Kenalog 1 applicatio TOPICAL BID 10/27/22 10/27/22 History 0.1% Cream] Tums Chewy Delights 1177mg Calcium 2,354 mg PO Q4H PRN 10/27/22 10/27/22 History Carb risperiDONE [RisperDAL] 0.5 mg PO HS 10/27/22 10/27/22 History Allergies Allergy/AdvReac Type Severity Reaction Status Date / Time celecoxib [From Celebrex] Allergy Unknown Verified 10/27/22 11:02 Physical Exam Vitals: Vital Signs Temp Pulse Pulse Resp BP BP Pulse Ox 10/31/22 09:00 97.7 F 76 16 112/64 97 10/31/22 03:44 98.9 F 70 16 112/58 98 10/30/22 23:20 99.1 F 84 16 117/72 95 10/30/22 19:25 97.3 F L 109 H 18 149/93 97 10/30/22 16:00 99.3 F 133 H 20 159/59 98 10/30/22 12:46 98.7 F 77 18 163/63 100 Intake and Output 10/30/22 10/31/22 10/31/22 22:59 06:59 14:59 Intake Total 800 180 Output Total 600 650 400 Balance 200 -650 -220 Intake: Intake, IV Titration 800 Amount Sodium Chloride 0.9% 1, 800 000 ml @ 100 mls/hr IV . Q10H [facility] Rx#:[id number] Oral 180 Output: Urine 600 650 400 Other: Voiding Method External Catheter External Catheter External Catheter # Bowel Movements 0 Results 10/27/22 10:43 10/27/22 10:43 Current Medications Generic Name Dose Route Start Last Admin Trade Name Freq PRN Reason Stop Dose Admin Acetaminophen 650 mg 10/27/22 14:09 10/31/22 09:45 Acetaminophen Tab 325 Mg Tab PO 650 mg Q6H PRN Administration Pain or Fever > 100.5 Albuterol Sulfate 2.5 mg 10/27/22 14:09 Albuterol Nebulized 2.5 Mg/3 Ml INHALATION RT-Q8H PRN Shortness Of Breath Amiodarone HCl 200 mg 10/28/22 09:00 10/31/22 09:26 Amiodarone 200 Mg Tab PO 200 mg DAILY [facility] Administration Apixaban 5 mg 10/27/22 21:00 10/31/22 09:27 Apixaban 5 Mg Tab PO 5 mg BID [facility] Administration Protocol Ascorbic Acid 1,000 mg 10/28/22 09:00 10/31/22 09:26 Ascorbic Acid 500 Mg Tab PO 1,000 mg DAILY [facility] Administration Aspirin 81 mg 10/29/22 09:00 10/31/22 09:26 Aspirin 81 Mg PO 81 mg DAILY [facility] Administration Atorvastatin Calcium 80 mg 10/27/22 21:00 10/30/22 21:42 Atorvastatin 80 Mg Tab PO 80 mg HS [facility] Administration Cholecalciferol 50 mcg 10/28/22 09:00 10/31/22 09:27 Cholecalciferol 25 Mcg (1000 Iu) Tablet PO 50 mcg DAILY [facility] Administration Cyanocobalamin 2,000 mcg 10/28/22 09:00 10/31/22 09:26 Cyanocobalamin 500 Mcg Tab PO 2,000 mcg DAILY [facility] Administration Famotidine 20 mg 10/27/22 21:00 10/31/22 09:27 Famotidine 20 Mg Tab PO 20 mg BID [facility] Administration Folic Acid 1 mg 10/28/22 09:00 10/31/22 09:26 Folic Acid 1 Mg Tab PO 1 mg DAILY [facility] Administration Lisinopril/HCTZ 1 each 10/30/22 21:00 10/31/22 09:26 Lisinopril-Hctz 10-12.5 Mg 1 Each Tab PO 1 each BID [facility] Administration Sodium Chloride 1,000 mls @ 100 mls/hr 10/27/22 11:45 10/31/22 05:56 Saline 0.9% IV 100 mls/hr .Q10H [facility] Administration Levothyroxine Sodium 100 mcg 10/28/22 06:30 10/31/22 05:57 Levothyroxine 100 Mcg Tab PO 100 mcg DAILY@0630 [facility] Administration Metoprolol Tartrate 100 mg 10/30/22 21:00 10/31/22 09:27 Metoprolol Tartrate 50 Mg Tab PO 100 mg BID [facility] Administration Etanercept [Enbrel] 50 mg 10/28/22 09:00 10/28/22 08:52 50 Mg/Ml Syringe SQ Not Given FR [facility] Methotrexate/Pf [ 15 mg 10/28/22 09:00 10/28/22 08:51 Reditrex 15 Mg/0.6 SQ Not Given Ml Syringe] 15 Mg/0. FR [facility] 6 Ml Each Ondansetron HCl 4 mg 10/27/22 14:09 Ondansetron 4 Mg Tab PO Q8H PRN Nausea Risperidone 0.5 mg 10/27/22 21:00 10/30/22 21:42 Risperidone 0.5 Mg Tab PO 0.5 mg HS [facility] Administration Sertraline HCl 25 mg 10/28/22 07:00 10/31/22 05:57 Sertraline 25 Mg Tab PO 25 mg DAILY@0700 [facility] Administration Triamcinolone Acetonide 1 applic 10/27/22 21:00 10/31/22 09:27 Triamcinolone 0.1% Cream 80 Gm Tube TOPICAL 1 applic BID [facility] Administration Protocol Intake and Output 10/30/22 10/31/22 10/31/22 22:59 06:59 14:59 Intake Total 800 180 Output Total 600 650 400 Balance 200 -650 -220 Intake: Intake, IV Titration 800 Amount Sodium Chloride 0.9% 1, 800 000 ml @ 100 mls/hr IV . Q10H [facility] Rx#:[id number] Oral 180 Output: Urine 600 650 400 Other: Voiding Method External Catheter External Catheter External Catheter # Bowel Movements 0 10/27/22 10:43 10/27/22 10:43
--- NOTE | 2022-10-31 13:00 | P.PN ---
Progress Note - Text Progress Note Date: 10/31/22 Chief Complaint: Left-sided weakness This is a 71-year-old patient who follows a Dr. Reynoso. Chronic stable medical conditions include hypertension, hyperlipidemia, rheumatoid arthritis, hypothyroid, stroke with left-sided weakness that has resolved, anxiety. Patient does have a walker Wheelchair. Sr. drops in the hospital help her out. For 2 months patient noticed weakness of the left arm. Some slurring of speech off and on. No fever no chills. Occasionally she'll level cough with drinking water. Admitted with worsening of stroke. October 28: CT of the neck and head unremarkable. MRI of the brain ordered. Pulmonary consulted for left lung nodule. Patient was a bit agitated earlier today. Pending speech evaluation. Sleepy today. Really hasn't eaten much. Lasix on dysphagia 1 diet. October 29: More awake today. Answering questions. Decreased appetite. Spoke to the 8 to have the patient eat. MRI done but results pending. EEG negative for epileptiform activity. October 30: Patient has been more awake. Delirious. Keeps asking for deep dish pizza from [place]. Doesn't hospital food. Will DC Ativan. Continue IV fluids. MRI brain does show acute area of infarct in the subcortical posterior left parietal lobe. October 31: Overnight patient went into A. fib with rapid ventricular rate. This morning back in sinus rhythm. Cartilage E was consulted. Patient oriented eliquis. Ativan was discontinued yesterday. Patient tired but able to answer questions more appropriately. Spoke to nurse with assisted feeding. At about 50% of her breakfast this morning. Active Medications Acetaminophen (Acetaminophen Tab 325 Mg Tab) 650 mg PO Q6H PRN PRN Reason: Pain or Fever > 100.5 Last Admin: 10/31/22 09:45 Dose: 650 mg Albuterol Sulfate (Albuterol Nebulized 2.5 Mg/3 Ml) 2.5 mg INHALATION RT-Q8H PRN PRN Reason: Shortness Of Breath Amiodarone HCl (Amiodarone 200 Mg Tab) 200 mg PO DAILY [facility] Last Admin: 10/31/22 09:26 Dose: 200 mg Apixaban (Apixaban 5 Mg Tab) 5 mg PO BID [facility]; Protocol Last Admin: 10/31/22 09:27 Dose: 5 mg Ascorbic Acid (Ascorbic Acid 500 Mg Tab) 1,000 mg PO DAILY [facility] Last Admin: 10/31/22 09:26 Dose: 1,000 mg Aspirin (Aspirin 81 Mg) 81 mg PO DAILY [facility] Last Admin: 10/31/22 09:26 Dose: 81 mg Atorvastatin Calcium (Atorvastatin 80 Mg Tab) 80 mg PO HS [facility] Last Admin: 10/30/22 21:42 Dose: 80 mg Cholecalciferol (Cholecalciferol 25 Mcg (1000 Iu) Tablet) 50 mcg PO DAILY [facility] Last Admin: 10/31/22 09:27 Dose: 50 mcg Cyanocobalamin (Cyanocobalamin 500 Mcg Tab) 2,000 mcg PO DAILY [facility] Last Admin: 10/31/22 09:26 Dose: 2,000 mcg Famotidine (Famotidine 20 Mg Tab) 20 mg PO BID [facility] Last Admin: 10/31/22 09:27 Dose: 20 mg Folic Acid (Folic Acid 1 Mg Tab) 1 mg PO DAILY [facility] Last Admin: 10/31/22 09:26 Dose: 1 mg Lisinopril/HCTZ (Lisinopril-Hctz 10-12.5 Mg 1 Each Tab) 1 each PO BID [facility] Last Admin: 10/31/22 09:26 Dose: 1 each Sodium Chloride (Saline 0.9%) 1,000 mls @ 100 mls/hr IV .Q10H [facility] Last Admin: 10/31/22 05:56 Dose: 100 mls/hr Levothyroxine Sodium (Levothyroxine 100 Mcg Tab) 100 mcg PO DAILY@0630 [facility] Last Admin: 10/31/22 05:57 Dose: 100 mcg Metoprolol Tartrate (Metoprolol Tartrate 50 Mg Tab) 100 mg PO BID [facility] Last Admin: 10/31/22 09:27 Dose: 100 mg Etanercept [Enbrel] (50 Mg/Ml Syringe) 50 mg SQ FR [facility] Last Admin: 10/28/22 08:52 Dose: Not Given Methotrexate/Pf [ Reditrex 15 Mg/0.6 Ml Syringe] 15 Mg/0. 6 Ml Each 15 mg SQ FR [facility] Last Admin: 10/28/22 08:51 Dose: Not Given Ondansetron HCl (Ondansetron 4 Mg Tab) 4 mg PO Q8H PRN PRN Reason: Nausea Risperidone (Risperidone 0.5 Mg Tab) 0.5 mg PO HS [facility] Last Admin: 10/30/22 21:42 Dose: 0.5 mg Sertraline HCl (Sertraline 25 Mg Tab) 25 mg PO DAILY@0700 [facility] Last Admin: 10/31/22 05:57 Dose: 25 mg Triamcinolone Acetonide (Triamcinolone 0.1% Cream 80 Gm Tube) 1 applic TOPICAL BID [facility]; Protocol Last Admin: 10/31/22 09:27 Dose: 1 applic Past medical history to include: Stroke, hyperlipidemia, hypertension, kidney disease, RA, hypothyroid, anxiety, Social history: Lives alone. Smoked in the past. Sr. drops and aVF that time to help her out. Does use a wheelchair at a walker. Physical examination: VITAL SIGNS: 98.8, 81, 18, 120/68, 96% room air GENERAL:. BMI 35.1, bit lethargic but able to answer questions. EYES: Pupils equal. Conjunctiva normal. HEENT: External appearance of nose and ears normal, oral cavity grossly normal. NECK: JVD not raised; masses not palpable. HEART: First and second heart sounds are normal; no edema. LUNGS: Respiratory rate normal; decreased breath sounds. ABDOMEN: Soft, nontender, liver spleen not palpable, no masses palpable. PSYCH: Answering questions appropriately, but lethargic MUSCULOSKELETAL:No Clubbing/cyanosis;muscles-grossly intact. OA NEUROLOGICAL: [Cranial nerves grossly intact; no facial asymmetry, power in the left arm 3/5. Mouth slightly to the left. INVESTIGATIONS, reviewed in the clinical context: MRI brain: Additional area of acute to subacute infarct in the subcortical posterior left parietal lobe 2.1 x 0.8 cm. Encephalomalacia on the right side. Also bright signal suggesting surrounding acute to subacute ischemia in the same territory. EEG: Negative for epileptiform activity. Encephalopathy findings 2-D echo: EF 55-60%. Negative bubble study LDL 62 White count 5.4 hemoglobin 12.3 platelets 191 potassium 3.4 creatinine 0.76 EKG tracing personally reviewed by me-normal sinus rhythm. Nonspecific ST-T wave changes. CT brain without contrast: Chronic large right MCA territory infarct with encephalomalacia. Chest x-ray film personally reviewed by me-pulmonary artery prominent. Borderline cardiomegaly CT angiogram head and neck: Unremarkable Assessment and plan: -Acute stroke in the subcortical posterior left parietal lobe 2.1 x 0.8 cm. Also additional area of acute/subacute ischemia in the area corresponding to the old right MCA territory territory. Eliquis. Add aspirin 81 mg. -Acute metabolic encephalopathy/delirium. Could be combination of stroke and also patient being on Ativan scheduled.: Improving Stop Ativan. -Chronic right-sided encephalomalacia in the right MCA did territory with left arm weakness -Chronic medical debility at her baseline uses a walker or wheelchair. -Hyperlipidemia Lipitor 20 mg -Dysphagia. Dysphagia 2 diet. Follow with speech. Aspiration precautions. -Hypothyroid Synthroid 100 g a day -Depression Zoloft -Essential hypertension Lopressor 100 mg twice a day. Stop clonidine. lisinopril hydrochlorothiazide 10/12.5 twice a day -Paroxysmal atrial fibrillation, currently in sinus rhythm Amiodarone. jena Woodson Advanced to dysphagia 2 diet per speech. Assist with feeding. Hopefully discharge to rehab in 24 hours.
--- NOTE | 2022-10-31 13:51 | P.PN ---
Subjective Progress Note Date: 10/31/22 Principal diagnosis: CVA Acute CVA This is a 71-year-old female with history of previous CVA, with residual left sided weakness, dementia, patient is a resident of [facility]. Patient presented to the hospital yesterday on 10:29 AM for possible new stroke. Apparently the patient was witnessed to have increased facial droop, and her speech was also affected. The patient herself is not a great historian, she had previous 2 strokes in the past. Last one was in May 23. Patient was brought into the hospital, and she was noted to have increased slurred speech and increased weakness on the left side. CT of the head showed no acute intracranial process. However there was evidence of chronic large right MCA territory infarct with encephalomalacia. There was also nonspecific white matter changes likely related to chronic small vessel disease. CT angiogram, s howed a very suspicious left upper lobe nodule in the left upper lobe medially. Patient has been a smoker in the past, but could not elaborate as to when she stopped smoking. In the chart it says that the patient quit smoking about 15 years ago. At any rate the nodule seen on the CT is very highly suspicious for bronchogenic carcinoma and I am recommending outpatient follow-up PET scan on outpatient basis, patient may eventually require navigational bronchoscopy for tissue diagnosis. No previous x-rays of the chest noted on the chart. Patient was seen again today on 10/30/2022, basically about the same, her neurological issues are being addressed by neurology on the case, I will see the patient seems to have had another CVA, I'm seeing the patient for her left upper lobe nodule and I'm recommending outpatient follow-up. Patient will need a PET scan on outpatient basis, and depending on her overall neurological status will decide as what to do for tissue diagnosis of her left upper lobe nodule. Progress note dated 10/31/2022. The patient was seen today in room 378. The patient was admitted with a diagnosis of CVA. We are consulted for left upper lobe pulmonary nodule, which will need outpatient follow-up and evaluation. The patient will need an outpatient PET scan as part of the process of evaluating his nodule. No new labs today. The patient's getting saline at 100 mL an hour. The patient's on room air. Objective - Vital Signs Vital signs: Vital Signs Temp 98.8 F 10/31/22 11:55 Pulse 81 10/31/22 11:55 Resp 18 10/31/22 11:55 BP 128/68 10/31/22 11:55 Pulse Ox 96 10/31/22 11:55 FiO2 Intake & Output 10/30/22 10/31/22 10/31/22 18:59 06:59 18:59 Intake Total 800 180 Output Total 1250 400 Balance 800 -1250 -220 Intake: Intake, IV Titration 800 Amount Sodium Chloride 0.9% 1, 800 000 ml @ 100 mls/hr IV . Q10H [facility] Rx#:[id number] Oral 180 Output: Urine 1250 400 Other: Voiding Method External Catheter External Catheter External Catheter # Bowel Movements 0 - Exam No acute distress, poorly responsive. HEENT examination is grossly unremarkable. Neck supple. Full range of motion. No adenopathy thyromegaly or neck vein d istention. Cardiovascular examination reveals regular rhythm rate. S1-S2 normal. No S3 or S4. No discernible murmur noted. Lungs reveal clear breath sounds. Breath sounds are equal bilaterally. No adventitious lung sounds including wheezes rhonchi or crackles. Abdomen soft bowel sounds are heard. No masses or tenderness. Extremities are intact. No cyanosis clubbing or edema. Skin is without rash or lesion. Neurologic examination reveals a left-sided hemiparesis. Patient is poorly r esponsive, not receiving any oxygen. - Labs CBC & Chem 7: 10/27/22 10:43 10/27/22 10:43 Assessment and Plan Assessment: Acute CVA with worsening baseline left hemiparesis, and slurred speech. Left upper lobe pulmonary nodule, highly suspicious for bronchogenic carcinoma, requiring outpatient evaluation. Previous history of tobacco use. History of diabetes mellitus, without complications. History of underlying dementia. Previous history of CVA, 2. Plan: Plan dated 10/31/2022. The patient's neurologic status is currently being evaluated and treated by neurology. The patient has a suspicious nodule, and the left upper lobe. She will need an outpatient PET scan for further evaluation. Additional recommendations and suggestions are forthcoming. We will see the patient when she is discharged. No additional recommendations are made. Prognosis is guarded. Time with Patient: Less than 30
[2022-10-31] MEDS: ATORVASTATIN 80 MG TAB PO SCH (21:23)
[2022-10-31] MEDS: risperiDONE 0.5 MG TAB PO SCH (21:23)
[2022-11-01] MEDS: SODIUM CHLORIDE 0.9% 1,000 ML IV SCH ×3 (04:27→21:44)
[2022-11-01 08:09] LABS: Basophils % (A) 1 %; Eosinophils # (A) 0.2 k/uL (0-0.7); Eosinophils % (A) 3 %; HCT 41.9 % (34.0-46.0); HGB 13.2 gm/dL (11.4-16.0); Hypochromasia Slight; Lymphocytes # (A) 1.2 k/uL (1.0-4.8); Lymphocytes % (A) 15 %; MCH 29.3 pg (25.0-35.0); MCHC 31.4 g/dL (31.0-37.0); MCV 93.3 fL (80.0-100.0); Mean Platelet Volume 9.2; Monocytes # (A) 0.5 k/uL (0-1.0); Monocytes % (A) 7 %; Neutrophils # (A) 5.6 k/uL (1.3-7.7); Neutrophils % (A) 71 %; Platelet Count 157 k/uL (150-450); RBC 4.49 m/uL (3.80-5.40); RDW 14.7 % (11.5-15.5); WBC 7.8 k/uL (3.8-10.6)
[2022-11-01 08:12] LABS: African American GFR (CKD) >90 (>60 ml/min/1.73 sqM); Anion Gap 7 mmol/L; Blood Urea Nitrogen 14 mg/dL (7-17); Calcium 9.1 mg/dL (8.4-10.2); Carbon Dioxide 27 mmol/L (22-30); Chloride 104 mmol/L (98-107); Glucose 113 mg/dL (74-99); Non-African American GFR(CKD) >90 (>60 ml/min/1.73 sqM); Potassium 3.3 mmol/L (3.5-5.1); Sodium 138 mmol/L (137-145)
[2022-11-01] MEDS: ASPIRIN 81 MG PO SCH (08:39)
[2022-11-01] MEDS: LEVOTHYROXINE 100 MCG TAB PO SCH (08:39)
[2022-11-01] MEDS: AMIODARONE 200 MG TAB PO SCH (08:39)
[2022-11-01] MEDS: METOPROLOL TARTRATE 50 MG TAB PO SCH ×2 (08:39→21:31)
[2022-11-01] MEDS: CHOLECALCIFEROL 25 MCG (1000 IU) TABLET PO SCH (08:39)
[2022-11-01] MEDS: FOLIC ACID 1 MG TAB PO SCH (08:39)
[2022-11-01] MEDS: CYANOCOBALAMIN 500 MCG TAB PO SCH (08:39)
[2022-11-01] MEDS: FAMOTIDINE 20 MG TAB PO SCH ×2 (08:39→21:31)
[2022-11-01] MEDS: APIXABAN 5 MG TAB PO SCH ×2 (08:39→21:31)
[2022-11-01] MEDS: SERTRALINE 25 MG TAB PO SCH (08:39)
[2022-11-01] MEDS: LISINOPRIL-HCTZ 10-12.5 MG 1 EACH TAB PO SCH ×2 (08:40→21:32)
[2022-11-01] MEDS: TRIAMCINOLONE 0.1% CREAM 80 GM TUBE TOPICAL SCH ×2 (08:40→21:32)
[2022-11-01] MEDS: ASCORBIC ACID 500 MG TAB PO SCH (08:40)
[2022-11-01] MEDS ORDERED: POTASSIUM CHLORIDE ER 20 MEQ TAB.ER PO STA (09:48)
--- NOTE | 2022-11-01 10:48 | P.PN ---
Subjective Progress Note Date: 10/31/22 Patient was seen for a follow-up. Patient is laying comfortably in the bed. Patient denies headache, no dizziness. Patient undergoing COSMO tomorrow. Objective - Vital Signs Vital signs: Vital Signs Temp 98.3 F 10/31/22 19:35 Pulse 62 10/31/22 19:35 Resp 16 10/31/22 19:35 BP 149/63 10/31/22 19:35 Pulse Ox 97 10/31/22 19:35 FiO2 Intake & Output 10/31/22 10/31/22 11/01/22 06:59 18:59 06:59 Intake Total 300 Output Total 1250 600 Balance -1250 -300 Intake: Oral 300 Output: Urine 1250 600 Other: Voiding Method External Catheter External Catheter - Exam Patient is alert and awake. She states it is and then she states it is March and the year is 2022. Speech is mildly dysarthric. Per nursing report, patient is more confused at night. Her left side is obviously weak, right side appears normal. Patient has left homonymous hemianopia - Labs CBC & Chem 7: 11/01/22 07:15 11/01/22 07:15 Assessment and Plan Assessment: * Worsening of baseline left hemiparesis, slurred speech, due to acute stroke extension around the area of chronic infarction in the right MCA vascular territory. * History of CVA in the right MCA vascular territory, with left hemiparesis * History of remote pontine stroke based upon CT head * Hypertension * Mild diabetes * Dementia * X tobacco use Plan: * MRI of the brain: It is reported as encephalomalacia on the right corresponded to old right MCA territory infarct. However there is bright signal on DWI suggest surrounding acute to subacute ischemia in the same territory. Greater than 6 hours in duration given the bright T2 signal. Additional area of acute to subacute infarct in the subcortical posterior left parietal lobe measuring 2.10.8 cm. Background moderate to severe patchy burden chronic small vessel ischemic disease. Old 8 mm lacunar infarct and within the vinay. I personally reviewed MRI, I agree with the findings. * Resume Eliquis. May add low-dose aspirin. I would avoid placing on dual antiplatelet medication along with Eliquis. We will decrease aspirin from 325 down to 81 mg daily. * CTA of the neck and head showed no evidence of dissection of the cervical internal carotid arteries or vertebral arteries or any evidence of significant stenosis at the carotid bifurcations. No evidence of high-grade stenosis or intracranial aneurysm. Chronic appearing right MCA territory infarct with encephalomalacia. Chronic appearing central vinay small infarct. Left upper lobe 1.9 x 1.5 cm pulmonary nodule concerning for possible malignancy. Fu rther evaluation with PET/CT is recommended. * Internal medicine to address possible left upper lobe mass. * 2-D echo revealed left-ventricular ejection fraction is 55-60%. Normal left atrial size. Negative bubble study. * EEG was abnormal due to background slowing of at least moderate degree, sugges tive of encephalopathy. No epileptiform activity was seen. * Hemoglobin A1c 6.0, fasting lipid panel with cholesterol 127, LDL 62, HDL 37 and triglycerides 136. Continue Lipitor 80 mg daily. * Continue B12. * PT OT, speech therapy * Patient undergoing COSMO in the morning. If negative, will be clear for discharge.
--- NOTE | 2022-11-01 10:58 | P.PN ---
Subjective Progress Note Date: 11/01/22 HISTORY OF PRESENT ILLNESS: This is a 71-year-old female with a past medical history significant for CVA, hypertension, hyperlipidemia, and paroxysmal atrial fibrillation. Patient fo llows in the office with Dr. Ojeda. We have been asked to see the patient in consultation for Chelle noguera with RVR. Patient examined at the bedside. Patient presented to the hospital from her [facility] secondary to worsening left-sided weakness and slurred speech. Patient is on anticoagulation on outpatient basis with Eliquis. MRI performed revealing acute to subacute CVA. Aspirin was added to patients medication regimen. Patient went into afib with RVR yesterday. However, this morning she is maintaining sinus mechanism. * EKG reveals sinus mechanism with no signs of acute ischemia. Repeat EKG reveals atrial fibrillation with RVR * Chest xray negative for acute process * Brain MRI: Encephalomalacia on the right corresponding to old infarct MCA territory infarct. However there is bright signal on DWI suggesting surrounding acute to subacute ischemia in the same territory. Additional area of acute to subacute infarct in the subcortical posterior left parietal lobe. * Laboratory data: WBC 5.4. Hemoglobin 12.3. Platelet count 191. Sodium 140. Potassium 3.4. BUN 16. Creatinine 0.76. * Current home cardiac medications include amiodarone 200 mg daily, Lipitor 20 mg at night, metoprolol tartrate 100 mg twice a day, and Eliquis 5mg BID * Echocardiogram obtained during this admission revealed ejection fraction 55- 60%. Negative bubble study. 11/01/2022 Patient examined this morning at the bedside. Patient continues to have left- sided weakness which appears slightly worse than yesterday. She continues to have a facial droop. Telemetry reveals atrial fibrillation with controlled ventricular rates. Patient is scheduled for COSMO today with Dr. Elizabeth. PHYSICAL EXAM: VITAL SIGNS: Reviewed. GENERAL: Well-developed in no acute distress. HEENT: Head is normocephalic. Pupils are equal, round. Sclerae anicteric. Mucous membranes of the mouth are moist. Neck supple. No JVD or thyromegaly LUNGS: Respirations even and unlabored. Lungs essentially clear to auscultation bilaterally. HEART: Regular rate and rhythm. S1 and S2 heard. ABDOMEN: Soft. Nondistended. Nontender. EXTREMITIES: Left-sided weakness. No clubbing or cyanosis. Peripheral pulses intact. No lower extremity edema NEUROLOGIC: Awake and alert. Oriented x 3. ASSESSMENT: Worsening left sided weakness and slurred speech Acute to subacute CVA Paroxysmal atrial fibrillation History of CVA with left-sided weakness Hypertension Hyperlipidemia PLAN: Continue current cardiac medications Continue Eliquis. Patient also started on aspirin 81mg daily. Continue telemetry monitoring Patient to undergo COSMO today with Dr. Ojeda Further recommendations pending patient's course Nurse practitioner note has been reviewed by physician. Signing provider agrees with the documented findings, assessment, and plan of care. Objective - Vital Signs Vital signs: Vital Signs Temp 97.7 F 11/01/22 08:35 Pulse 95 11/01/22 08:35 Resp 16 11/01/22 08:35 BP 140/92 11/01/22 08:35 Pulse Ox 99 11/01/22 08:35 FiO2 Intake & Output 10/31/22 11/01/22 11/01/22 18:59 06:59 18:59 Intake Total 300 Output Total 600 450 Balance -300 -450 Intake: Oral 300 Output: Urine 600 450 Other: Voiding Method External Catheter External Catheter External Catheter # Voids 1 1 # Bowel Movements 1 - Labs CBC & Chem 7: 11/01/22 07:15 11/01/22 07:15 Labs: Abnormal Lab Results - Last 24 Hours (Table) 11/01/22 Range/Units 07:15 Potassium 3.3 L (3.5-5.1) mmol/L Glucose 113 H (74-99) mg/dL
--- NOTE | 2022-11-01 11:34 | P.PN ---
Subjective Progress Note Date: 11/01/22 Principal diagnosis: CVA Acute CVA This is a 71-year-old female with history of previous CVA, with residual left sided weakness, dementia, patient is a resident of assisted. Patient presented to the hospital yesterday on 10:29 AM for possible new stroke. Apparently the patient was witnessed to have increased facial droop, and her speech was also affected. The patient herself is not a great historian, she had previous 2 strokes in the past. Last one was in May 23. Patient was brought into the hospital, and she was noted to have increased slurred speech and increased weakness on the left side. CT of the head showed no acute intracranial process. However there was evidence of chronic large right MCA territory infarct with encephalomalacia. There was also nonspecific white matter changes likely related to chronic small vessel disease. CT angiogram, s howed a very suspicious left upper lobe nodule in the left upper lobe medially. Patient has been a smoker in the past, but could not elaborate as to when she stopped smoking. In the chart it says that the patient quit smoking about 15 years ago. At any rate the nodule seen on the CT is very highly suspicious for bronchogenic carcinoma and I am recommending outpatient follow-up PET scan on outpatient basis, patient may eventually require navigational bronchoscopy for tissue diagnosis. No previous x-rays of the chest noted on the chart. Patient was seen again today on 10/30/2022, basically about the same, her neurological issues are being addressed by neurology on the case, I will see the patient seems to have had another CVA, I'm seeing the patient for her left upper lobe nodule and I'm recommending outpatient follow-up. Patient will need a PET scan on outpatient basis, and depending on her overall neurological status will decide as what to do for tissue diagnosis of her left upper lobe nodule. Progress note dated 10/31/2022. The patient was seen today in room 378. The patient was admitted with a diagnosis of CVA. We are consulted for left upper lobe pulmonary nodule, which will need outpatient follow-up and evaluation. The patient will need an outpatient PET scan as part of the process of evaluating his nodule. No new labs today. The patient's getting saline at 100 mL an hour. The patient's on room air. Progress note dated 11/01/2022. The patient is seen today in room 378. The patient currently is on room air. She's getting saline at 20 mL an hour. The patient mumbles when she spoken to. She doesn't seem to make much sense. The patient was discovered to have a left upper lobe pulmonary nodule. She will need outpatient evaluation, with a PET scan to begin with. Labs today include a white count of 7.8, hemoglobin 13.2, hematocrit 41.9, and platelet count 157,000. Sodium 138, potassium 3.3, chlorides 104, CO2 27, BUN 14, creatinine 0.65. Objective - Vital Signs Vital signs: Vital Signs Temp 97.7 F 11/01/22 08:35 Pulse 95 11/01/22 08:35 Resp 16 11/01/22 08:35 BP 140/92 11/01/22 08:35 Pulse Ox 99 11/01/22 08:35 FiO2 Intake & Output 10/31/22 11/01/22 11/01/22 18:59 06:59 18:59 Intake Total 300 Output Total 600 450 Balance -300 -450 Intake: Oral 300 Output: Urine 600 450 Other: Voiding Method External Catheter External Catheter External Catheter # Voids 1 1 # Bowel Movements 1 - Exam No acute distress, poorly responsive. Room air saturation is 99%. HEENT examination is grossly unremarkable. Neck supple. Full range of motion. No adenopathy thyromegaly or neck vein distention. Cardiovascular examination reveals regular rhythm rate. S1-S2 normal. No S3 or S4. No discernible murmur noted. Heart rate is 95 bpm. Lungs reveal clear breath sounds. Breath sounds are equal bilaterally. No adventitious lung sounds including wheezes rhonchi or crackles. Abdomen soft bowel sounds are heard. No masses or tenderness. Extremities are intact. No cyanosis clubbing or edema. Skin is without rash or lesion. Neurologic examination reveals a left-sided hemiparesis. Patient is poorly responsive, not receiving any oxygen. - Labs CBC & Chem 7: 11/01/22 07:15 11/01/22 07:15 Labs: Abnormal Lab Results - Last 24 Hours (Table) 11/01/22 Range/Units 07:15 Potassium 3.3 L (3.5-5.1) mmol/L Glucose 113 H (74-99) mg/dL Assessment and Plan Assessment: Acute CVA with worsening baseline left hemiparesis, and slurred speech. Left upper lobe pulmonary nodule, highly suspicious for bronchogenic carcinoma, requiring outpatient evaluation. Previous history of tobacco use. History of diabetes mellitus, without complications. History of underlying dementia. Previous history of CVA, 2. Plan: Plan dated 10/31/2022. The patient's neurologic status is currently being evaluated and treated by neurology. The patient has a suspicious nodule, and the left upper lobe. She will need an outpatient PET scan for further evaluation. Additional recomme ndations and suggestions are forthcoming. We will see the patient when she is discharged. No additional recommendations are made. Prognosis is guarded. Plan dated 11/01/2022. The patient will need outpatient evaluation of her pulmonary nodule. She will benefit from a outpatient PET scan. Pending the results of the PET scan, additional recommendations and suggestions can be made. This may be just observation, or biopsy, or excisional surgery. Prognosis is guarded. No additional recommendations at this time. We will see the patient only as needed, moving forward. Time with Patient: Less than 30
[2022-11-01] MEDS ORDERED: fentaNYL (PF) 50 MCG/ML 2 ML AMP ONE (12:36)
[2022-11-01] MEDS ORDERED: IV FLUID CONTINUATION 600 ML IV ONE (12:50)
[2022-11-01] MEDS ORDERED: BENZOCAINE SPRAY 1 CAN TOPICAL ONE (12:51)
[2022-11-01] MEDS ORDERED: fentaNYL (PF) 50 MCG/ML 2 ML AMP IV ONE (12:56)
[2022-11-01] MEDS ORDERED: MIDAZOLAM 2 MG/2 ML VIAL IV ONE (12:56)
--- NOTE | 2022-11-01 13:04 | P.PCN ---
Date of Procedure: 11/01/22 Operative Findings: TRANSESOPHAGEAL ECHOCARDIOGRAM EDUCATIONAL SPECIALIST: JOSIE ESPINAL MD, RPVI INDICATION: Severe SEDATION: Conscious sedation COMPLICATION: None LEVEL OF SEDATION Moderate to sedation length of 10 minutes PROCEDURE DESCRIPTION: After obtaining an informed consent, the patient was brought to transesophageal echocardiogram room. Pulse oximetry and heart monitors were attached to the patient. The patient throat was sprayed using lidocaine. The patient was turned into left lateral position. After that a bite guard was placed. After an appropriate conscious sedation was initiated, the transesophageal echocardiogram was advanced through a bite guard into the mid esophagus. A 2-D echocardiogram images, color Doppler images, continuous wave images, pulse-wave images, of various cardiac structure were performed. After that the transesophageal echocardiogram probe was advanced into the stomach and fixed to obtain transgastric view was. The probe was brought into the mid esophagus. Inter-atrial septum was interrogated using 2D images, color Doppler images, and then contrast study. After that transesophageal echocardiogram was withdrawn out and upon withdrawing the descending thoracic aorta all the way up to the arch was evaluated. FINDING: Please note that the patient was quite agitated during the study and the study was done quickly. The left ventricular dimension and systolic function appeared to be within normal limits. There is moderate mitral regurgitation was identified. The mitral valve appeared to be mildly thickened with moderate mitral regurgitation. Aortic valve appears to be normal. No evidence of pericardial effusion. The interatrial septum appeared to be intact. CONCLUSION: 1. No evidence of cardiac source of embolization 2. Intact interatrial septum with no PFO
--- NOTE | 2022-11-01 17:57 | P.PN ---
Progress Note - Text Progress Note Date: 11/01/22 Chief Complaint: Left-sided weakness This is a 71-year-old patient who follows a Dr. Reynoso. Chronic stable medical conditions include hypertension, hyperlipidemia, rheumatoid arthritis, hypothyroid, stroke with left-sided weakness that has resolved, anxiety. Patient does have a walker Wheelchair. Sr. drops in the hospital help her out. For 2 months patient noticed weakness of the left arm. Some slurring of speech off and on. No fever no chills. Occasionally she'll level cough with drinking water. Admitted with worsening of stroke. October 28: CT of the neck and head unremarkable. MRI of the brain ordered. Pulmonary consulted for left lung nodule. Patient was a bit agitated earlier today. Pending speech evaluation. Sleepy today. Really hasn't eaten much. Lasix on dysphagia 1 diet. October 29: More awake today. Answering questions. Decreased appetite. Spoke to the 8 to have the patient eat. MRI done but results pending. EEG negative for epileptiform activity. October 30: Patient has been more awake. Delirious. Keeps asking for deep dish pizza from [place]. Doesn't hospital food. Will DC Ativan. Continue IV fluids. MRI brain does show acute area of infarct in the subcortical posterior left parietal lobe. October 31: Overnight patient went into A. fib with rapid ventricular rate. This morning back in sinus rhythm. Cartilage E was consulted. Patient oriented eliquis. Ativan was discontinued yesterday. Patient tired but able to answer questions more appropriately. Spoke to nurse with assisted feeding. At about 50% of her breakfast this morning. November 01: [id number] at the bedside visiting. Patient is nothing by mouth. Did undergo a COSMO this afternoon. No thrombus or PFO found. Patient is continued on eliquis. Patient is talked of possible embolic stroke. Also discussed with clinical social worker pending authorization for rehab. Diet as per speech. CODE STATUS discussed with the patient. Wishes to remain full code at this present. Active Medications Acetaminophen (Acetaminophen Tab 325 Mg Tab) 650 mg PO Q6H PRN PRN Reason: Pain or Fever > 100.5 Last Admin: 10/31/22 09:45 Dose: 650 mg Albuterol Sulfate (Albuterol Nebulized 2.5 Mg/3 Ml) 2.5 mg INHALATION RT-Q8H PRN PRN Reason: Shortness Of Breath Amiodarone HCl (Amiodarone 200 Mg Tab) 200 mg PO DAILY [facility] Last Admin: 11/01/22 08:39 Dose: 200 mg Apixaban (Apixaban 5 Mg Tab) 5 mg PO BID [facility]; Protocol Last Admin: 11/01/22 08:39 Dose: 5 mg Ascorbic Acid (Ascorbic Acid 500 Mg Tab) 1,000 mg PO DAILY [facility] Last Admin: 11/01/22 08:40 Dose: 1,000 mg Aspirin (Aspirin 81 Mg) 81 mg PO DAILY [facility] Last Admin: 11/01/22 08:39 Dose: 81 mg Atorvastatin Calcium (Atorvastatin 80 Mg Tab) 80 mg PO HS [facility] Last Admin: 10/31/22 21:23 Dose: 80 mg Cholecalciferol (Cholecalciferol 25 Mcg (1000 Iu) Tablet) 50 mcg PO DAILY [facility] Last Admin: 11/01/22 08:39 Dose: 50 mcg Cyanocobalamin (Cyanocobalamin 500 Mcg Tab) 2,000 mcg PO DAILY [facility] Last Admin: 11/01/22 08:39 Dose: 2,000 mcg Famotidine (Famotidine 20 Mg Tab) 20 mg PO BID [facility] Last Admin: 11/01/22 08:39 Dose: 20 mg Folic Acid (Folic Acid 1 Mg Tab) 1 mg PO DAILY [facility] Last Admin: 11/01/22 08:39 Dose: 1 mg Lisinopril/HCTZ (Lisinopril-Hctz 10-12.5 Mg 1 Each Tab) 1 each PO BID [facility] Last Admin: 11/01/22 08:40 Dose: 1 each Sodium Chloride (Saline 0.9%) 1,000 mls @ 100 mls/hr IV .Q10H [facility] Last Admin: 11/01/22 04:27 Dose: Not Given Levothyroxine Sodium (Levothyroxine 100 Mcg Tab) 100 mcg PO DAILY@0630 [facility] Last Admin: 11/01/22 08:39 Dose: 100 mcg Metoprolol Tartrate (Metoprolol Tartrate 50 Mg Tab) 100 mg PO BID [facility] Last Admin: 11/01/22 08:39 Dose: 100 mg Etanercept [Enbrel] (50 Mg/Ml Syringe) 50 mg SQ FR [facility] Last Admin: 10/28/22 08:52 Dose: Not Given Methotrexate/Pf [ Reditrex 15 Mg/0.6 Ml Syringe] 15 Mg/0. 6 Ml Each 15 mg SQ FR [facility] Last Admin: 10/28/22 08:51 Dose: Not Given Ondansetron HCl (Ondansetron 4 Mg Tab) 4 mg PO Q8H PRN PRN Reason: Nausea Risperidone (Risperidone 0.5 Mg Tab) 0.5 mg PO HS [facility] Last Admin: 10/31/22 21:23 Dose: 0.5 mg Sertraline HCl (Sertraline 25 Mg Tab) 25 mg PO DAILY@0700 [facility] Last Admin: 11/01/22 08:39 Dose: 25 mg Triamcinolone Acetonide (Triamcinolone 0.1% Cream 80 Gm Tube) 1 applic TOPICAL BID [facility]; Protocol Last Admin: 11/01/22 08:40 Dose: 1 applic Past medical history to include: Stroke, hyperlipidemia, hypertension, kidney disease, RA, hypothyroid, anxiety, Social history: Lives alone. Smoked in the past. Sr. drops and aVF that time to help her out. Does use a wheelchair at a walker. Physical examination: VITAL SIGNS: 97.9, 85, 18, 132/82, 98% room air GENERAL:. BMI 35.1, slightly lethargic but able to hold a conversation EYES: Pupils equal. Conjunctiva normal. HEENT: External appearance of nose and ears normal, oral cavity grossly normal. NECK: JVD not raised; masses not palpable. HEART: First and second heart sounds are normal; no edema. LUNGS: Respiratory rate normal; decreased breath sounds. ABDOMEN: Soft, nontender, liver spleen not palpable, no masses palpable. PSYCH: Answering questions appropriately, but slightly lethargic MUSCULOSKELETAL:No Clubbing/cyanosis;muscles-grossly intact. OA NEUROLOGICAL: , power in the left arm 3/5. Mouth slightly to the left. INVESTIGATIONS, reviewed in the clinical context: November 01: White count 7.8 hemoglobin 13.2 platelets 157 potassium 3.3 creatinine 0.65 MRI brain: Additional area of acute to subacute infarct in the subcortical posterior left parietal lobe 2.1 x 0.8 cm. Encephalomalacia on the right side. Also bright signal suggesting surrounding acute to subacute ischemia in the same territory. EEG: Negative for epileptiform activity. Encephalopathy findings 2-D echo: EF 55-60%. Negative bubble study LDL 62 White count 5.4 hemoglobin 12.3 platelets 191 potassium 3.4 creatinine 0.76 EKG tracing personally reviewed by me-normal sinus rhythm. Nonspecific ST-T wave changes. CT brain without contrast: Chronic large right MCA territory infarct with encephalomalacia. Chest x-ray film personally reviewed by me-pulmonary artery prominent. Borderline cardiomegaly CT angiogram head and neck: Unremarkable Assessment and plan: -Acute stroke in the subcortical posterior left parietal lobe 2.1 x 0.8 cm. Also additional area of acute/subacute ischemia in the area corresponding to the old right MCA territory territory. Eliquis. aspirin 81 mg. COSMO: Negative for thrombosis/PE of full -Acute metabolic encephalopathy/delirium. Could be combination of stroke and also patient being on Ativan scheduled.: Improving Ativan discontinued. -Chronic right-sided encephalomalacia in the right MCA did territory with left arm weakness -Chronic medical debility at her baseline uses a walker or wheelchair. -Hyperlipidemia Lipitor 20 mg -Dysphagia. Dysphagia 2 diet. Follow with speech. Aspiration precautions. -Hypothyroid Synthroid 100 g a day -Depression Zoloft -Essential hypertension Lopressor 100 mg twice a day. Stop clonidine. lisinopril hydrochlorothiazide 10/12.5 twice a day -Paroxysmal atrial fibrillation, currently in sinus rhythm Amiodarone. neo [place] Patient had COSMO today. Unremarkable. manager trade looking into authorization for rehab. Pending.
[2022-11-01] MEDS ORDERED: POTASSIUM CHLORIDE ER 20 MEQ TAB.ER PO ONE (21:00)
[2022-11-01] MEDS: ATORVASTATIN 80 MG TAB PO SCH (21:31)
[2022-11-01] MEDS: risperiDONE 0.5 MG TAB PO SCH (21:32)
[2022-11-02] MEDS: SODIUM CHLORIDE 0.9% 1,000 ML IV SCH (06:04)
[2022-11-02] MEDS: LEVOTHYROXINE 100 MCG TAB PO SCH (06:04)
[2022-11-02] MEDS: SERTRALINE 25 MG TAB PO SCH (06:04)
[2022-11-02] MEDS: CHOLECALCIFEROL 25 MCG (1000 IU) TABLET PO SCH (08:06)
[2022-11-02] MEDS: METOPROLOL TARTRATE 50 MG TAB PO SCH (08:06)
[2022-11-02] MEDS: ASPIRIN 81 MG PO SCH (08:06)
[2022-11-02] MEDS: CYANOCOBALAMIN 500 MCG TAB PO SCH (08:07)
[2022-11-02] MEDS: ASCORBIC ACID 500 MG TAB PO SCH (08:07)
[2022-11-02] MEDS: AMIODARONE 200 MG TAB PO SCH (08:07)
[2022-11-02] MEDS: APIXABAN 5 MG TAB PO SCH (08:07)
[2022-11-02] MEDS: FAMOTIDINE 20 MG TAB PO SCH (08:07)
[2022-11-02] MEDS: FOLIC ACID 1 MG TAB PO SCH (08:07)
[2022-11-02] MEDS: LISINOPRIL-HCTZ 10-12.5 MG 1 EACH TAB PO SCH (08:07)
[2022-11-02] MEDS: TRIAMCINOLONE 0.1% CREAM 80 GM TUBE TOPICAL SCH (08:09)
[2022-11-02 08:10] VITALS: BP 174/84; PULSE 89; RESP 18; TEMP 98.7
--- NOTE | 2022-11-02 10:50 | P.PN ---
Subjective Progress Note Date: 11/01/22 Patient was seen for a follow-up. Patient is laying comfortably in the bed. Patient denies headache, no dizziness. Patient's telemetry showed sinus rhythm, with A. fib. Objective - Vital Signs Vital signs: Vital Signs Temp 97.9 F 11/01/22 12:35 Pulse 100 11/01/22 15:00 Resp 16 11/01/22 15:00 BP 132/70 11/01/22 15:00 Pulse Ox 97 11/01/22 15:00 FiO2 Intake & Output 11/01/22 11/01/22 11/02/22 06:59 18:59 06:59 Intake Total 280 Output Total 450 200 Balance -450 80 Intake: IV 100 Oral 180 Output: Urine 450 200 Other: Voiding Method External Catheter External Catheter # Voids 1 1 # Bowel Movements 1 - Exam Patient is awake, but keeps her eyes closed. Her speech is slightly dysarthric. On cranial nerve examination, pupils are equal, round and reacting. Visual kee revealed left homonymous hemianopia. On muscle strength testing, patient has left pronator drift, and it hits the bed. The strength is (right/left) biceps 5/5, medical legal investigator 5/5, triceps 5/5, deltoid 5/5-, ankle dorsiflexion 5/5-, hip flexion 5/5. Patient does require multiple prompts on the left to be checked. Sensory examination revealed left-sided neglect. Patient did not cooperate for formal sensory examination as was inconsistent. - Labs CBC & Chem 7: 11/01/22 07:15 11/01/22 07:15 Labs: Abnormal Lab Results - Last 24 Hours (Table) 11/01/22 Range/Units 07:15 Potassium 3.3 L (3.5-5.1) mmol/L Glucose 113 H (74-99) mg/dL Assessment and Plan Assessment: * Worsening of baseline left hemiparesis, slurred speech, due to acute stroke extension around the area of chronic infarction in the right MCA vascular territory. * History of CVA in the right MCA vascular territory, with left hemiparesis * History of remote pontine stroke based upon CT head * Hypertension * Mild diabetes * Dementia * X tobacco use Plan: * MRI of the brain: It is reported as encephalomalacia on the right corresponded to old right MCA territory infarct. However there is bright signal on DWI s uggest surrounding acute to subacute ischemia in the same territory. Greater than 6 hours in duration given the bright T2 signal. Additional area of acute to subacute infarct in the subcortical posterior left parietal lobe measuring 2.10.8 cm. Background moderate to severe patchy burden chronic small vessel ischemic disease. Old 8 mm lacunar infarct and within the vinay. I personally reviewed MRI, I agree with the findings. * Resume Eliquis. May add low-dose aspirin. I would avoid placing on dual antiplatelet medication along with Eliquis. We will decrease aspirin from 325 down to 81 mg daily. * CTA of the neck and head showed no evidence of dissection of the cervical internal carotid arteries or vertebral arteries or any evidence of significant stenosis at the carotid bifurcations. No evidence of high-grade stenosis or intracranial aneurysm. Chronic appearing right MCA territory infarct with encephalomalacia. Chronic appearing central vinay small infarct. Left upper lobe 1.9 x 1.5 cm pulmonary nodule concerning for possible malignancy. Further evaluation with PET/CT is recommended. * Pulmonary medicine has evaluated for left upper lobe mass, recommending outpatient PET scan. * 2-D echo revealed left-ventricular ejection fraction is 55-60%. Normal left atrial size. Negative bubble study. * EEG was abnormal due to background slowing of at least moderate degree, sugges tive of encephalopathy. No epileptiform activity was seen. * Hemoglobin A1c 6.0, fasting lipid panel with cholesterol 127, LDL 62, HDL 37 and triglycerides 136. Continue Lipitor 80 mg daily. * Continue B12. * PT OT, speech therapy * COSMO revealed no evidence of cardiac source of embolism. Intact interatrial septum with no PFO. * Neurologically clear for discharge.
--- NOTE | 2022-11-02 11:40 | P.PN ---
Subjective Progress Note Date: 11/02/22 HISTORY OF PRESENT ILLNESS: This is a 71-year-old female with a past medical history significant for CVA, hypertension, hyperlipidemia, and paroxysmal atrial fibrillation. Patient fo llows in the office with Dr. Ojeda. We have been asked to see the patient in consultation for Chelle noguera with RVR. Patient examined at the bedside. Patient presented to the hospital from her ECF secondary to worsening left-sided weakness and slurred speech. Patient is on anticoagulation on outpatient basis with Eliquis. MRI performed revealing acute to subacute CVA. Aspirin was added to patients medication regimen. Patient went into afib with RVR yesterday. However, this morning she is maintaining sinus mechanism. * EKG reveals sinus mechanism with no signs of acute ischemia. Repeat EKG reveals atrial fibrillation with RVR * Chest xray negative for acute process * Brain MRI: Encephalomalacia on the right corresponding to old infarct MCA territory infarct. However there is bright signal on DWI suggesting surrounding acute to subacute ischemia in the same territory. Additional area of acute to subacute infarct in the subcortical posterior left parietal lobe. * Laboratory data: WBC 5.4. Hemoglobin 12.3. Platelet count 191. Sodium 140. Potassium 3.4. BUN 16. Creatinine 0.76. * Current home cardiac medications include amiodarone 200 mg daily, Lipitor 20 mg at night, metoprolol tartrate 100 mg twice a day, and Eliquis 5mg BID * Echocardiogram obtained during this admission revealed ejection fraction 55- 60%. Negative bubble study. 11/01/2022 Patient examined this morning at the bedside. Patient continues to have left- sided weakness which appears slightly worse than yesterday. She continues to have a facial droop. Telemetry reveals atrial fibrillation with controlled ventricular rates. Patient is scheduled for COSMO today with Dr. Elizabeth. 11/02/2022 Patient examined this morning at the bedside. Patient denies chest pain or pressure. She denies shortness of breath. She appears to have improvement in her left-sided weakness. She underwent COSMO yesterday with Dr. Elizabeth with no evidence of PFO. Vital signs are stable. PHYSICAL EXAM: VITAL SIGNS: Reviewed. GENERAL: Well-developed in no acute distress. HEENT: Head is normocephalic. Pupils are equal, round. Sclerae anicteric. Mucous membranes of the mouth are moist. Neck supple. No JVD or thyromegaly LUNGS: Respirations even and unlabored. Lungs essentially clear to auscultation bilaterally. HEART: Regular rate and rhythm. S1 and S2 heard. ABDOMEN: Soft. Nondistended. Nontender. EXTREMITIES: Left-sided weakness. No clubbing or cyanosis. Peripheral pulses intact. No lower extremity edema NEUROLOGIC: Awake and alert. Oriented x 3. ASSESSMENT: Worsening left sided weakness and slurred speech Acute to subacute CVA Paroxysmal atrial fibrillation History of CVA with left-sided weakness Hypertension Hyperlipidemia PLAN: Continue current cardiac medications Patient is stable from a cardiac standpoint with no further inpatient recommendations We will sign off Please reconsult if needed. Nurse practitioner note has been reviewed by physician. Signing provider agrees with the documented findings, assessment, and plan of care. Objective - Vital Signs Vital signs: Vital Signs Temp 98.7 F 11/02/22 08:00 Pulse 89 11/02/22 08:00 Resp 18 11/02/22 08:00 BP 174/84 11/02/22 08:00 Pulse Ox 96 11/02/22 08:00 FiO2 Intake & Output 11/01/22 11/02/22 11/02/22 18:59 06:59 18:59 Intake Total 280 0 Output Total 200 Balance 80 0 Weight 89.5 kg Intake: IV 100 Oral 180 0 Output: Urine 200 Other: Voiding Method External Catheter External Catheter External Catheter # Voids 1 - Labs CBC & Chem 7: 11/01/22 07:15 11/01/22 07:15
[2022-11-02 15:01] VITALS: BMI 34.9
--- NOTE | 2022-11-02 17:01 | P.DS ---
Providers Date of admission: 10/27/22 11:31 Expected date of discharge: 11/02/22 Attending physician: Isiah Hammond Consults: 10/27/22 11:31 Consult Physician Urgent Consulting Provider: Blanca Tafoya Consult Reason/Comments: cva Do you want consulting provider notified?: Yes 10/28/22 13:56 Consult Physician Routine Consulting Provider: Hu Garcia Consult Reason/Comments: lung nodule Do you want consulting provider notified?: Yes Primary care physician: Dandy [facility] Course: Chief Complaint: Left-sided weakness This is a 71-year-old patient who follows a Dr. Reynoso. Chronic stable medical conditions include hypertension, hyperlipidemia, rheumatoid arthritis, hypothyroid, stroke with left-sided weakness that has resolved, anxiety. Patient does have a walker Wheelchair. Sr. drops in the hospital help her out. For 2 months patient noticed weakness of the left arm. Some slurring of speech off and on. No fever no chills. Occasionally she'll level cough with drinking water. Admitted with worsening of stroke. October 28: CT of the neck and head unremarkable. MRI of the brain ordered. Pulmonary consulted for left lung nodule. Patient was a bit agitated earlier today. Pending speech evaluation. Sleepy today. Really hasn't eaten much. Lasix on dysphagia 1 diet. October 29: More awake today. Answering questions. Decreased appetite. Spoke to the 8 to have the patient eat. MRI done but results pending. EEG negative for epileptiform activity. October 30: Patient has been more awake. Delirious. Keeps asking for deep dish pizza from [place]. Doesn't hospital food. Will DC Ativan. Continue IV fluids. MRI brain does show acute area of infarct in the subcortical posterior left parietal lobe. October 31: Overnight patient went into A. fib with rapid ventricular rate. This morning back in sinus rhythm. Cartilage E was consulted. Patient oriented eliquis. Ativan was discontinued yesterday. Patient tired but able to answer questions more appropriately. Spoke to nurse with assisted feeding. At about 50% of her breakfast this morning. November 01: [id number] at the bedside visiting. Patient is nothing by mouth. Did undergo a COSMO this afternoon. No thrombus or PFO found. Patient is continued on eliquis. Patient is talked of possible embolic stroke. Also discussed with addiction social worker pending authorization for rehab. Diet as per speech. CODE STATUS discussed with the patient. Wishes to remain full code at this present. November 02: This answer questions. Sometimes answers drift off. Spoke to n eurology. Discharge in aspirin eliquis. Also spoke to the insurance company for.. peer to peer review.. Oral intake variable. Occasional hallucinations reported. Discussion and discharge planning more than 35 minutes Past medical history to include: Stroke, hyperlipidemia, hypertension, kidney disease, RA, hypothyroid, anxiety, Social history: Lives alone. Smoked in the past. Sr. drops and aVF that time to help her out. Does use a wheelchair at a walker. Physical examination: VITAL SIGNS: 98.7, 99, 18, 150/65, 96% room air GENERAL:. BMI 35.1, comfortable EYES: Pupils equal. Conjunctiva normal. HEENT: External appearance of nose and ears normal, oral cavity grossly normal. NECK: JVD not raised; masses not palpable. HEART: First and second heart sounds are normal; no edema. LUNGS: Respiratory rate normal; decreased breath sounds. ABDOMEN: Soft, nontender, liver spleen not palpable, no masses palpable. PSYCH: Answering questions appropriately, occasional hallucinations MUSCULOSKELETAL:No Clubbing/cyanosis;muscles-grossly intact. OA NEUROLOGICAL: , power in the left arm 3/5. Mouth slightly to the left. INVESTIGATIONS, reviewed in the clinical context: November 01: White count 7.8 hemoglobin 13.2 platelets 157 potassium 3.3 creatinine 0.65 MRI brain: Additional area of acute to subacute infarct in the subcortical posterior left parietal lobe 2.1 x 0.8 cm. Encephalomalacia on the right side. Also bright signal suggesting surrounding acute to subacute ischemia in the same territory. EEG: Negative for epileptiform activity. Encephalopathy findings 2-D echo: EF 55-60%. Negative bubble study LDL 62 White count 5.4 hemoglobin 12.3 platelets 191 potassium 3.4 creatinine 0.76 EKG tracing personally reviewed by me-normal sinus rhythm. Nonspecific ST-T wave changes. CT brain without contrast: Chronic large right MCA territory infarct with encephalomalacia. Chest x-ray film personally reviewed by me-pulmonary artery prominent. Borderline cardiomegaly CT angiogram head and neck: Unremarkable Assessment and plan: -Acute stroke in the subcortical posterior left parietal lobe 2.1 x 0.8 cm. Also additional area of acute/subacute ischemia in the area corresponding to the old right MCA territory territory. Eliquis. aspirin 81 mg. COSMO: Negative for thrombosis/PE , no PFO -Acute metabolic encephalopathy/delirium. Could be combination of stroke and also patient being on Ativan scheduled.: Improving Ativan discontinued. -Chronic right-sided encephalomalacia in the right MCA did territory with left arm weakness -Chronic medical debility at her baseline uses a walker or wheelchair. -Hyperlipidemia Lipitor 20 mg -Dysphagia. Dysphagia 2 diet. Follow with speech. Aspiration precautions. -Hypothyroid Synthroid 100 g a day -Depression Zoloft -Essential hypertension Lopressor 100 mg twice a day. lisinopril hydrochlorothiazide 10/12.5 twice a day -Paroxysmal atrial fibrillation, currently in sinus rhythm Amiodarone. Lopressor, eliquis Disposition: [facility] - Discharge Summary Discharge Rx Participant: Yes New Discharge Prescriptions: New Aspirin 81 mg PO DAILY tab Lisinopril-Hctz 10-12.5 mg [Zestoretic 10-12.5] 1 each PO BID tab Atorvastatin [Lipitor] 80 mg PO HS tab Continue Metoprolol Tartrate [Lopressor] 100 mg PO BID Sertraline [Zoloft] 25 mg PO DAILY@0700 risperiDONE [RisperDAL] 0.5 mg PO HS Methotrexate/Pf [Reditrex 15 mg/0.6 ml Syringe] 15 mg SQ FR Cholecalciferol [Vitamin D3 (25 Mcg = 1000 Iu)] 50 mcg PO DAILY Ascorbic Acid [Vitamin C] 1,000 mg PO DAILY Amiodarone [Cordarone] 200 mg PO DAILY Ondansetron [Zofran] 4 mg PO Q8H PRN PRN Reason: Nausea Albuterol Nebulized [Ventolin Nebulized] 2.5 mg INHALATION RT-Q8H PRN PRN Reason: Shortness Of Breath Acetaminophen Tab [Tylenol] 650 mg PO Q6H PRN PRN Reason: Pain Or Fever > 100.5 Triamcinolone 0.1% Cream [Kenalog 0.1% Cream] 1 applicatio TOPICAL BID Famotidine [Pepcid] 20 mg PO BID Apixaban [Eliquis] 5 mg PO BID Levothyroxine Sodium [Synthroid] 100 mcg PO DAILY Folic Acid 0.8 mg PO DAILY Etanercept [Enbrel] 50 mg SQ FR Cyanocobalamin (Vitamin B-12) [Vitamin B-12] 2,000 mcg PO DAILY [facility] [employer] [employer] 1177mg Calcium Carb 2,354 mg PO Q4H PRN PRN Reason: Gi Upset Discontinued Docusate [Colace] 100 mg PO DAILY Atorvastatin [Lipitor] 20 mg PO HS LORazepam [Ativan] 0.5 mg PO TID@0800,1500,2100 Discharge Medication List Acetaminophen Tab [Tylenol] 650 mg PO Q6H PRN 10/27/22 [History] Albuterol Nebulized [Ventolin Nebulized] 2.5 mg INHALATION RT-Q8H PRN 10/27/22 [History] Amiodarone [Cordarone] 200 mg PO DAILY 10/27/22 [History] Apixaban [Eliquis] 5 mg PO BID 10/27/22 [History] Ascorbic Acid [Vitamin C] 1,000 mg PO DAILY 10/27/22 [History] Cholecalciferol [Vitamin D3 (25 Mcg = 1000 Iu)] 50 mcg PO DAILY 10/27/22 [History] Cyanocobalamin (Vitamin B-12) [Vitamin B-12] 2,000 mcg PO DAILY 10/27/22 [History] Etanercept [Enbrel] 50 mg SQ FR 10/27/22 [History] Famotidine [Pepcid] 20 mg PO BID 10/27/22 [History] Folic Acid 0.8 mg PO DAILY 10/27/22 [History] Levothyroxine Sodium [Synthroid] 100 mcg PO DAILY 10/27/22 [History] Methotrexate/Pf [Reditrex 15 mg/0.6 ml Syringe] 15 mg SQ FR 10/27/22 [History] Metoprolol Tartrate [Lopressor] 100 mg PO BID 10/27/22 [History] Ondansetron [Zofran] 4 mg PO Q8H PRN 10/27/22 [History] Sertraline [Zoloft] 25 mg PO DAILY@0700 10/27/22 [History] Triamcinolone 0.1% Cream [Kenalog 0.1% Cream] 1 applicatio TOPICAL BID 10/27/22 [History] Calderon [place] [employer] 1177mg Calcium Carb 2,354 mg PO Q4H PRN 10/27/22 [History] risperiDONE [RisperDAL] 0.5 mg PO HS 10/27/22 [History] Aspirin 81 mg PO DAILY tab 11/01/22 [Rx] Atorvastatin [Lipitor] 80 mg PO HS tab 11/01/22 [Rx] Lisinopril-Hctz 10-12.5 mg [Zestoretic 10-12.5] 1 each PO BID tab 11/01/22 [Rx] Follow up Appointment(s)/Referral(s): Hu Garcia MD [STAFF PHYSICIAN] - 2 Weeks (lung nodule) Dandy Reynoso DO [Primary Care Provider] - 1-2 days
== END 2022-11-02 17:51 | DRG 64 ==
LOC: EC 10:29 → 3SCARD 11:31
PROVIDERS: ADMIT Hospitalist; ATTEND Hospitalist
PROC: B24BZZ4 Ultrasonography of Heart with Aorta, Transesophageal (ICD-10-PCS; principal; 2022-11-01 07:30)
DX: I63.532 Cerebral infarction due to unspecified occlusion or stenosis of left posterior cerebral artery (principal); G93.41 Metabolic encephalopathy; F03.92 Unspecified dementia, unspecified severity, with psychotic disturbance; I69.354 Hemiplegia and hemiparesis following cerebral infarction affecting left non-dominant side; R41.4 Neurologic neglect syndrome; C34.12 Malignant neoplasm of upper lobe, left bronchus or lung; F03.93 Unspecified dementia, unspecified severity, with mood disturbance; F03.94 Unspecified dementia, unspecified severity, with anxiety; M06.9 Rheumatoid arthritis, unspecified; I48.0 Paroxysmal atrial fibrillation; E11.9 Type 2 diabetes mellitus without complications; H53.462 Homonymous bilateral field defects, left side; G93.89 Other specified disorders of brain; I11.9 Hypertensive heart disease without heart failure; E03.9 Hypothyroidism, unspecified; R29.810 Facial weakness; E78.5 Hyperlipidemia, unspecified; R13.10 Dysphagia, unspecified; R53.81 Other malaise; I34.0 Nonrheumatic mitral (valve) insufficiency; I44.0 Atrioventricular block, first degree; R00.1 Bradycardia, unspecified; R47.1 Dysarthria and anarthria; Z87.891 Personal history of nicotine dependence; Z79.01 Long term (current) use of anticoagulants; Z79.890 Hormone replacement therapy; Z79.899 Other long term (current) drug therapy; Z88.8 Allergy status to other drugs, medicaments and biological substances
CPT/HCPCS: 36415; 70450; 70496; 70498; 70551; 71046; 80048; 80053; 80061; 82550; 83036; 85025; 85610; 85730; 93005; 93306; 93312; 93325; 95816; 99285

== ENCOUNTER → 2022-11-25 | Outpatient (CLI) | payer MEDICARE ==
--- NOTE | 2022-11-28 09:07 | PE ---
EXAMINATION TYPE: PET CT fusion skull to thigh DATE OF EXAM: 11/25/2022 CLINICAL INDICATION:Female, 71 years old with history of R91.1; TECHNIQUE: Following the intravenous administration of 11.85 mCi of F-18 FDG, whole body images are performed from the skull base to the midthigh. Images are reviewed on the computer in the coronal, axial, and sagittal planes. Reconstructed rotating images are created on independent workstation and reviewed on the computer. A non-contrast CT is performed in conjunction with the PET scan. Glucose level 105 mg/dL COMPARISON: CT 10/27/2022, PET/CT None, FINDINGS: Mediastinal SUV mean is 1.8. Hepatic parenchyma SUV mean is 2.6. SKULL BASE AND NECK: No suspicious radiotracer activity. CHEST, MEDIASTINUM, AND HILAR REGION: * Left upper lobe pulmonary nodule measuring 1.9 x 1.4 cm Max SUV 1.3 * Right lower lobe pulmonary nodule measuring 3.1 x 1.5 cm max SUV 2.5 * Right pulmonary hilum fullness which is poorly evaluated on this noncontrast exam, could represent lymph nodes max SUV 2.1.r ABDOMEN AND PELVIS: * Nodular thickening of the left adrenal gland max SUV 2.4 MUSCULOSKELETAL STRUCTURES: No suspicious radiotracer activity. OTHER CT: Right MCA territory prior injuries. Atherosclerosis of the intracranial vasculature, the va sculature at the carotid bifurcations and the coronary arteries noted. There is lobular thickening of the left adrenal gland measuring 3.4 x 2.0 cm. Fat-containing umbilical hernia. Prior pelvic fractur es are noted. Infrarenal abdominal aortic ectasia up to 2.7 cm. Suspected radiopaque metallic foreign body in the gallbladder fossa adjacent to the gallbladder, could represent postsurgical etiology.. IMPRESSION: * Left upper lobe, right lower lobe pulmonary nodules elevated FDG activity above background within the right lower lobe nodule concerning for neoplasm until proven otherwise. The left upper lobe nodul es also concerning however has FDG activity below background levels. Additionally there are. Right pu lmonary hilum lymph nodes thought to be present as well which can be better assessed with CT with IV contrast. * Indeterminate nodular thickening of the left adrenal gland with mild FDG activity which is asymmet brady, findings are suspicious given additional findings. Consider comparisons with priors at outside i titutions for stability.
== END | disposition home or self-care (01) ==
LOC: RADPETMAIN 06:55
PROVIDERS: ATTEND Family Medicine
DX: R91.8 Other nonspecific abnormal finding of lung field (principal)
CPT/HCPCS: 78815; A9552

== ENCOUNTER → 2023-03-27 | Outpatient (CLI) | payer MEDICARE ==
[2023-03-27 13:39] LABS: African American GFR (CKD) >90 (>60 ml/min/1.73 sqM); Blood Urea Nitrogen 16 mg/dL (7-17); Non-African American GFR(CKD) 80 (>60 ml/min/1.73 sqM)
--- NOTE | 2023-03-27 14:28 | CT ---
EXAMINATION TYPE: CT chest w con DATE OF EXAM: 03/27/2023 COMPARISON: PET CT scan 11/25/2022 HISTORY: abnormal findings on XRAY CT DLP: 295.30 mGycm Automated exposure control for dose reduction was used. TECHNIQUE: CT scan of the chest is performed with IV Contrast, patient injected with 100 mL of Isovue 300. MIP Images are created on CT scanner and reviewed. 3D reconstructed images are created on an independent workstation and reviewed. FINDINGS: LUNGS: The lungs are grossly clear, there is no concerning consolidative pneumonia identified. Ther e is no pleural effusion or pneumothorax seen. The tracheobronchial tree is patent. 1.9 x 1.5 cm left upper lobe nodule stable. Basilar subsegmental atelectasis on the right. There is a right lower lobe cavitating lesion measuring 3.5 x 1.8 cm and previously measuring 3.1 x 1 .5 cm. MEDIASTINUM: There are no greater than 1 cm hilar or mediastinal lymph nodes. No pericardial effusi on is seen. Heart is mildly mild centers coronary artery calcification. Atherosclerotic change of th e aorta but no evidence of aneurysm. Trace pericardial fluid. OTHER: Heterogeneous enhancement of the thyroid. Hypertrophic and degenerative changes of the spine. Marked thickening of the left adrenal gland. Underlying metastases not excluded. Small hiatal hernia . IMPRESSION: 1. Mild progression in size of the cavitating right lower lobe mass now measuring 3.5 x 1.8 cm and pr eviously measuring 3.1 x 1.5 cm. 2. Stable left upper lobe pulmonary mass measuring 1.9 x 1.5 cm.
== END | disposition home or self-care (01) ==
LOC: RADCTMAIN 12:58
PROVIDERS: ATTEND Internal Medicine
DX: R91.8 Other nonspecific abnormal finding of lung field (principal)
CPT/HCPCS: 82565; 84520; 71260; 36415; Q9967

== ENCOUNTER 2023-04-27 10:19 | Day surgery (SDC) | payer MEDICARE, OTHER ==
[~2023-04-27 10:19] MED LIST: DEXAMETHASONE SOD PHOSPHATE 4 MG/ML 1 ML VIAL IV ONE; HYDROmorphone 0.5 MG/0.5 ML SYRINGE IVP PRN; LACTATED RINGERS 1,000 ML IV SCH; ONDANSETRON 4 MG/2 ML VIAL IVP ONE
[2023-04-27] MEDS ORDERED: LACTATED RINGERS 1,000 ML IV ONE (11:19)
--- NOTE | 2023-04-27 11:27 | CT ---
EXAMINATION TYPE: CT chest wo con DATE OF EXAM: 04/27/2023 COMPARISON: Chest CT March 27, 2023 HISTORY: ion chest CT DLP: 521 mGycm. Automated Exposure Control for Dose Reduction was Utilized. TECHNIQUE: CT scan of the thorax is performed without IV contrast. FINDINGS: Exam is for bronchoscopy planning and not for diagnostic purposes. Mild emphysematous changes redemon strated. At site of prior cavitary lesion in the posterior aspect of the right lower lobe there is no w 3.3 x 2.3 cm right lung mass or masslike consolidation. Mild cardiomegaly with tiny pericardial eff usion is redemonstrated. Persistent low dense left adrenal mass noted. IMPRESSION: As above.
[2023-04-27 11:51] VITALS: BP 169/68; PULSE 46; RESP 18; TEMP 97.3
== END 2023-04-27 12:00 | disposition home or self-care (01) ==
LOC: ORWHC2ENDO 10:19
PROVIDERS: ATTEND Internal Medicine Critical Care Medicine
DX: R91.8 Other nonspecific abnormal finding of lung field (principal); I48.20 Chronic atrial fibrillation, unspecified; E03.9 Hypothyroidism, unspecified; I63.9 Cerebral infarction, unspecified; Z87.891 Personal history of nicotine dependence; Z88.6 Allergy status to analgesic agent; Z79.82 Long term (current) use of aspirin; Z79.01 Long term (current) use of anticoagulants; Z79.51 Long term (current) use of inhaled steroids; Z79.890 Hormone replacement therapy; Z79.1 Long term (current) use of non-steroidal anti-inflammatories (NSAID); Z79.899 Other long term (current) drug therapy
CPT/HCPCS: 71250

== ENCOUNTER 2023-04-28 11:59 | Day surgery (SDC) | payer MEDICARE, OTHER ==
[~2023-04-28 11:59] MED LIST changes: -DEXAMETHASONE SOD PHOSPHATE 4 MG/ML 1 ML VIAL IV ONE; -HYDROmorphone 0.5 MG/0.5 ML SYRINGE IVP PRN; -ONDANSETRON 4 MG/2 ML VIAL IVP ONE
[2023-04-28] MEDS ORDERED: LACTATED RINGERS 1,000 ML IV SCH (13:17)
[2023-04-28] MEDS ORDERED: fentaNYL (PF) 50 MCG/ML 2 ML AMP ONE (14:52)
[2023-04-28] MEDS ORDERED: PROPOFOL 10 MG/ML 20 ML VIAL IV ONE (14:52)
[2023-04-28] MEDS ORDERED: GLYCOPYRROLATE 0.2 MG/ML 2 ML VIAL ONE (14:52)
[2023-04-28] MEDS ORDERED: ROCURONIUM 10 MG/ML (5 ML VIAL) IV ONE (14:52)
[2023-04-28] MEDS ORDERED: SUCCINYLCHOLINE CHLORIDE 200 MG/10 ML VIAL IV ONE (14:52)
[2023-04-28] MEDS ORDERED: ePHEDrine 50 MG/ML 1 ML VIAL ONE (14:52)
[2023-04-28] MEDS ORDERED: LIDOCAINE 1% INJ 10MG/ML (20 ML MDV) ONE (14:52)
[2023-04-28] MEDS ORDERED: NEOSTIGMINE 1 MG/ML 10 ML VIAL ONE (14:52)
[2023-04-28] MEDS ORDERED: SUGAMMADEX SODIUM 200 MG/2 ML SDV IV ONE (14:52)
[2023-04-28 16:35] VITALS: RESP 16; TEMP 96.8
--- NOTE | 2023-04-28 17:41 | P.PCN ---
Date of Procedure: 04/28/23 Description of Procedure: Preoperative Diagnosis: Right Lower lobe mass Left upper lobe pulmonary nodule Postoperative Diagnosis: same Procedure(s) Performed: Flexible bronchoscopy Robotic-assisted bronchoscopy and addition to radial ultrasound evaluation of the right lower lobe mass Robotic-assisted transbronchial needle aspirate, transbronchial biopsies of the right lower lobe mass nodule in addition to a bronchioloalveolar lavage robotic-assisted transbronchial needle aspirate and transbronchial biopsy left upper lobe pulmonary nodule Anesthesia: ABDIELA Surgeon: Flaquita Caballero Estimated Blood Loss (ml): 0 Pathology: other Condition: stable Disposition: same day Operative Findings: A physical exam was performed. Informed consent was obtained from the patient after explaining all the risks (pneumothorax, life threatening bleeding, infection and adverse effects due to medications), benefits and alternatives to the procedure which the patient appeared to understand and so stated. The patient was connected to the monitoring devices. General anesthesia was induced and the patient was intubated by anesthesia. A final timeout was performed and the procedure confirmed by the attending staff bronchoscopist. The bronchoscope was inserted and the airway examined. The flexible bronchoscope was removed and the robotic bronchoscope was inserted. Registration was completed. I next guided the robotic bronchoscope using the Lago[employer] system into the right lower lobe a.r segment. Once in proper position, the bronchoscope was frozen. The radial EBUS probe was placed through the bronchoscope and confirmed abnormal u/s images vs normal lung. A needle was placed through the working channel and under fluoroscopic guidance, we sampled the area thought to have the mass twice. We then used a cloud biopsy pattern with ultrasound confirmation for 2 additional passes with the needle. U/S evaluation was then used to reconfirm location. Forceps were next introduced through working channel and extended the appropriate distance and 3 transbronchial biopsies were performed using fluoroscopic guidance. The u/s probe was then reinserted to confirm location. When confirmed this process was repeated for a total of 8-10 transbronchial biopsies. After reassessment with EBUS, a brush was placed through the extendable working channel for 1 pass with fluoroscopic guidance. U/S evaluation was then used to confirm location. 40ml of saline was then instilled into the area of the lesion. The robotic bronchoscope was removed and the airway inspected with a flexible bronchoscope and 10 ml of effluent from the BAL was collected. The aspirate was bloody and ultimately declotted and based on that, the sample was discarded. I next guided the robotic bronchoscope using the navigation system into the left upper lobe apical segment. Once in proper position, the bronchoscope was frozen. The radial EBUS probe was placed through the bronchoscope and confirmed abnormal u/s images vs normal lung.he had ultrasound signal was not adequate. A needle was placed through the working channel and under fluoroscopic guidance, we sampled the area thought to have the mass twice. We then used a cloud biopsy of the left upper lobe pulmonary nodule. A total of 4 biopsies were taken. Flex. bronchoscope was inserted and regular suctioning was done. At the completion of the procedure, no residual secretions or bloody material within the airway. The bronchoscope was removed. The patient was extubated. FINDINGS: 1.The airways appeared normal 2 Successful navigation, ultrasonographic identification, and biopsies of right lower lobe mass in left upper lobe pulmonary nodule 3.The the radial ultrasound view was eccentric RECOMMENDATIONS: Await pathology and cytology results The referring physician will be alerted to the results when available. The patient was advised to follow up with the referring physician with the biopsy results Patient will be called with results.
[2023-04-28 17:43] VITALS: BP 143/83; PULSE 54
--- NOTE | 2023-04-28 17:51 | XR ---
EXAMINATION TYPE: XR chest 1V DATE OF EXAM: 04/28/2023 COMPARISON: 01/13/2023 HISTORY: 72-year-old female postbronchoscopy TECHNIQUE: Single frontal view of the chest is obtained. FINDINGS: Heart upper limits of normal in size. Focal right infrahilar opacity likely corresponding to the known right lower lobe cavitary lesion. No residual pneumothorax. No sizable pleural effusion. IMPRESSION: Similar right infrahilar opacity likely corresponding to the patient's known posterior r ight lower lobe cavitary lesion. No appreciable pneumothorax.
--- NOTE | 2023-04-29 12:09 | FL ---
Intraoperative/procedural fluoroscopic services were provided. Total fluoroscopy time is 3 minutes 40 seconds with a total of 1 submitted images to PACS. Please see the operative/procedural note for fur ther details. DAP: 15.29 Gycm2
== END 2023-04-28 17:55 | disposition home or self-care (01) ==
LOC: ORWHC2ENDO 11:59
PROVIDERS: ATTEND Internal Medicine Critical Care Medicine
DX: R91.8 Other nonspecific abnormal finding of lung field (principal); R91.1 Solitary pulmonary nodule; I48.91 Unspecified atrial fibrillation; I10 Essential (primary) hypertension; E78.5 Hyperlipidemia, unspecified; E03.9 Hypothyroidism, unspecified; I63.9 Cerebral infarction, unspecified; M06.9 Rheumatoid arthritis, unspecified; K21.9 Gastro-esophageal reflux disease without esophagitis; Z85.118 Personal history of other malignant neoplasm of bronchus and lung; Z79.51 Long term (current) use of inhaled steroids; Z79.82 Long term (current) use of aspirin; Z79.01 Long term (current) use of anticoagulants; Z79.1 Long term (current) use of non-steroidal anti-inflammatories (NSAID); Z79.899 Other long term (current) drug therapy; Z98.890 Other specified postprocedural states
CPT/HCPCS: 87798 ×3; 87496; 87498; 87529; 88108; 88305; 88342; 87502; 87634; 88341; 87070; 87205; 87116; 87102; 87206; 87635; 71045; 31628; 31623; 31624; J0330; J2710; J2001; J3010; J2704; S2900

== ENCOUNTER → 2023-05-30 | Outpatient (CLI) | payer MEDICARE, OTHER ==
--- NOTE | 2023-05-30 19:34 | MR ---
EXAMINATION TYPE: MR brain wo/w con DATE OF EXAM: 05/30/2023 3:24 PM CLINICAL INDICATION:Female, 72 years old with history of C34.31, Lung cancer COMPARISON: 10/29/2022. TECHNIQUE: Multi planar, multi sequence imaging was performed through the brain including: T1, T2, In version recovery, susceptibility weighted imaging and gradient echo imaging and Diffusion weighted im aging. The patient was then given intravenous contrast and multi planar, T1 fat-saturation images wer e obtained. IV Contrast: 7 cc Gadavist FINDINGS: Similar right MCA territory remote infarct with thin rim of increased DWI signal with assoc iated low ADC signal slightly decreased compared to 10/29/2022. Susceptibility within the right cerebe llar hemisphere is stable from prior.. This is also seen within the area of prior infarct. Area of le ft parietal lobe ischemia on prior is no longer visualized. Remote injury to the left vinay. Scattered deep white matter changes on FLAIR imaging with high signal not significantly changed from prior. Af ter administration of gadolinium, no abnormal enhancement is seen. The bone marrow signal is within normal limits. Paranasal sinuses and mastoid air cells: No significant paranasal sinus disease. Visualized orbits: Orbital contents are intact. IMPRESSION: 1. Remote right MCA territory infarct with thin rim of ischemia which is decreased from prior. Addit ional larger left vinay. Resolution of ischemia within the left parietal lobe deep white matter. 2. No evidence of abnormal enhancement. 3. Nonspecific white matter changes, likely related to small vessel ischemic disease. 4. Susceptibility blooming artifact within the right cerebellar hemisphere is unchanged from prior c ould represent prior hemorrhage versus cavernoma.
== END | disposition home or self-care (01) ==
LOC: RADMRIMAIN 13:56
PROVIDERS: ATTEND Internal Medicine
DX: G93.89 Other specified disorders of brain (principal); C34.31 Malignant neoplasm of lower lobe, right bronchus or lung
CPT/HCPCS: 70553; A9585

== ENCOUNTER → 2023-06-29 | Outpatient (CLI) | payer MEDICARE, OTHER ==
--- NOTE | 2023-07-02 14:30 | PE ---
EXAMINATION TYPE: PET CT fusion skull to thigh DATE OF EXAM: 06/29/2023 COMPARISON: 04/27/2023 Prior PET/CT: 11/25/2022 HISTORY: Lung cancer TECHNIQUE: Following the intravenous administration of 8.18 mCi of F-18 FDG, whole body images are p erformed from the skull base to the midthigh. Images are reviewed on the computer in the coronal, ax ial, and sagittal planes. Reconstructed rotating images are created on independent workstation and r eviewed on the computer. A localization and attenuation correction CT is performed in conjunction w ith the PET scan. DLP: 528.81 mGycm SCAN: Subsequent Blood glucose: 101 mg/dL Average Mediastinum SUV: 2.14 Average Liver SUV: 2.92 FINDINGS: NECK: No abnormal uptake THORAX: There is marked uptake within the posterior medial right midlung, image 81, SUV 10.3 suspicious for n eoplasm. No abnormal uptake is within the soft tissue density adjacent to the left superior mediastinum near t he vertex. Image 59, SUV 0.72. ABDOMEN: There is mild uptake within the thickened left adrenal gland. Maximum SUV is approximately 3 .97. Metastasis cannot be excluded. PELVIS: There is some focal uptake within the right iliac chain, image 29, SUV 5.11 OSSEOUS STRUCTURES: No abnormal uptake LOCALIZATION CT: Coronary artery calcification is present. There is minimal fusiform prominence of t he mid abdominal aorta measuring 2.8 cm. Mesenteric fat-containing anterior abdominal wall hernia is present. COMPARISON: Uptake within the posterior right midlung has increased from an SUV of 1.87. The adrenal gland appears similar to prior exam, with increasing SUV, previous SUV 2.3. Right iliac chain region uptake is new. IMPRESSION: 1. Increasing uptake in the neoplastic range in the posterior right lung mass. 2. Mild uptake, increasing within a thickened left adrenal gland. Metastasis is not excluded. 3. New focal area of uptake within the right iliac chain suspicious for neoplastic metastasis
== END | disposition home or self-care (01) ==
LOC: RADPETMAIN 12:52
PROVIDERS: ATTEND Internal Medicine
DX: C34.31 Malignant neoplasm of lower lobe, right bronchus or lung (principal); R91.8 Other nonspecific abnormal finding of lung field
CPT/HCPCS: 78815; A9552

== ENCOUNTER → 2023-10-04 | Outpatient (CLI) | payer MEDICARE, OTHER ==
--- NOTE | 2023-10-04 14:23 | CT ---
EXAMINATION TYPE: CT chest wo con DATE OF EXAM: 10/04/2023 COMPARISON: PET CT 06/29/[address] chest 04/27/2023 HISTORY: Hx lung ca CT DLP: [address] of the chest was performed with lung and mediastinal window settings submitted. The la ck of contrast limits evaluation of the vascular, mediastinal and parenchymal structures including th e upper abdomen. LUNGS: Left upper lobe pulmonary nodule is slightly smaller in size at 1.9 cm previously and current measurement of 1.7 cm. Mass density right lower lobe is also slightly smaller in size and currently m easures 3.0 x 1.7 cm versus 3.4 x 2.3 cm. No additional nodules or masses present. MEDIASTINUM/NOLA: Thoracic aorta is of normal caliber with limited evaluation given lack of contrast . The heart is not enlarged. Moderate coronary artery calcifications. No evidence for mediastinal m ass. No lymph nodes greater than 1cm. UPPER ABDOMEN: Left adrenal mass redemonstrated a 2.7 cm. Stable nodule lateral limb right adrenal gl and. OTHER: No significant other abnormality. IMPRESSION: 1. Pulmonary mass right lower lobe persists although slightly smaller in size. Left upper lobe pulmon chantel nodule also persists and is also slightly smaller in size. No new nodules or masses seen. 2. Left adrenal mass is stable. 3. Limited evaluation of the hilum and mediastinum given lack of contrast. 1.
== END | disposition home or self-care (01) ==
LOC: RADCTMAIN 11:18
PROVIDERS: ATTEND Radiology Radiation Oncology
DX: C34.31 Malignant neoplasm of lower lobe, right bronchus or lung (principal); R91.8 Other nonspecific abnormal finding of lung field; E27.9 Disorder of adrenal gland, unspecified
CPT/HCPCS: 71250

== ENCOUNTER 2023-11-24 10:41 | Inpatient (IN) | payer MEDICARE, OTHER ==
[2023-11-24 11:23] LABS: ALT 24 U/L (4-34); AST 43 U/L (14-36); African American GFR (CKD) >90 (>60 ml/min/1.73 sqM); Albumin 3.1 g/dL (3.5-5.0); Alkaline Phosphatase 89 U/L (38-126); Anion Gap 3 mmol/L; Blood Urea Nitrogen 13 mg/dL (7-17); Calcium 8.5 mg/dL (8.4-10.2); Carbon Dioxide 27 mmol/L (22-30); Chloride 106 mmol/L (98-107); Glucose 99 mg/dL (74-99); Non-African American GFR(CKD) >90 (>60 ml/min/1.73 sqM); Sodium 136 mmol/L (137-145); Total Bilirubin 0.7 mg/dL (0.2-1.3)
--- NOTE | 2023-11-24 11:24 | ED ---
General Adult HPI - General Chief complaint: Shortness of Breath Stated complaint: SOB Time Seen by Provider: 11/24/23 10:50 Source: patient, EMS, RN notes reviewed, old records reviewed Mode of arrival: EMS - History of Present Illness Initial comments: This is a 72-year-old female who presents to the emergency department because she was altered and had a low pulse ox and also had a fever. Staff also indicated they heard some crackles in her lungs. EMS arrived stated that a couple liters of oxygen got up into the 90s and she was at her baseline neurologically. Patient denies any chest pain or palpitations. Patient denies any abdominal pain. Patient denies any nausea vomiting. Patient denies any cough. - Related Data Home Medications Medication Instructions Recorded Confirmed Acetaminophen Tab [Tylenol] 650 mg PO Q6H PRN 10/27/22 04/28/23 Albuterol Nebulized [Ventolin 2.5 mg INHALATION RT-Q8H PRN 10/27/22 04/28/23 Nebulized] Amiodarone [Cordarone] 200 mg PO DAILY 10/27/22 04/28/23 Apixaban [Eliquis] 5 mg PO BID 10/27/22 04/28/23 Ascorbic Acid [Vitamin C] 1,000 mg PO DAILY 10/27/22 04/28/23 Cholecalciferol [Vitamin D3 (25 25 mcg PO DAILY 10/27/22 04/28/23 Mcg = 1000 Iu)] Cyanocobalamin (Vitamin B-12) 1,000 mcg PO DAILY 10/27/22 04/28/23 [Vitamin B-12] Etanercept [Enbrel] 50 mg SQ FR 10/27/22 04/28/23 Famotidine [Pepcid] 20 mg PO BID 10/27/22 04/28/23 Ondansetron [Zofran] 4 mg PO Q8H PRN 10/27/22 04/28/23 Calcium Carbinate W/D3 500/10 2 tab PO Q4H PRN 01/13/23 04/28/23 Healthshake 1 dose PO BID@1100,1800 01/13/23 04/28/23 Levothyroxine Sodium [Synthroid] 88 mcg PO DAILY 01/13/23 04/28/23 Meloxicam [Mobic] 15 mg PO DAILY 01/13/23 04/28/23 Omeprazole [PriLOSEC] 20 mg PO DAILY 01/13/23 04/28/23 Sertraline [Zoloft] 50 mg PO DAILY 01/13/23 04/28/23 risperiDONE [RisperDAL] 1 mg PO HS 01/13/23 04/28/23 Previous Rx's Medication Instructions Recorded Aspirin 81 mg PO DAILY tab 11/01/22 Atorvastatin [Lipitor] 80 mg PO HS tab 11/01/22 ALPRAZolam [Xanax] 0.25 mg PO BID PRN #6 tab 01/16/23 Losartan [Cozaar] 100 mg PO HS #1 tab 01/16/23 Metoprolol Tartrate [Lopressor] 75 mg PO BID tab 01/16/23 levETIRAcetam [Keppra] 500 mg PO Q12HR tab 01/16/23 Allergies Allergy/AdvReac Type Severity Reaction Status Date / Time celecoxib [From Celebrex] Allergy Unknown Verified 11/24/23 10:50 Review of Systems ROS Statement: Those systems with pertinent positive or pertinent negative responses have been documented in the HPI. ROS Other: All systems not noted in ROS Statement are negative. Past Medical History Past Medical History: CVA/TIA, Hyperlipidemia, Hypertension, Renal Disease, Rheumatoid Arthritis (RA), Thyroid Disorder Additional Past Medical History / Comment(s): lung nodule, residual left sided weakness, pt is [facility] resident [facility] [place] History of Any Multi-Drug Resistant Organisms: None Reported Past Surgical History: Orthopedic Surgery Past Anesthesia/Blood Transfusion Reactions: No Reported Reaction Past Psychological History: Anxiety Smoking Status: Former smoker Past Alcohol Use History: None Reported Past Drug Use History: None Reported General Exam - General Exam Comments Initial Comments: GENERAL: Patient is well-developed and well-nourished. Patient is nontoxic and well-hyd rated and is in mild distress. ENT: Neck is soft and supple. No significant lymphadenopathy is noted. Oropharynx is clear. Moist mucous membranes. Neck has full range of motion without eliciting any pain. EYES: The sclera were anicteric and conjunctiva were pink and moist. Extraocular movements were intact and pupils were equal round and reactive to light. Eyelids were unremarkable. PULMONARY: Patient has right-sided crackles CARDIOVASCULAR: There is a regular rate and rhythm without any murmurs gallops or rubs. ABDOMEN: Soft and nontender with normal bowel sounds. SKIN: Skin is clear with no lesions or rashes and otherwise unremarkable. NEUROLOGIC: Patient is alert and oriented x 2. Cranial nerves II through XII are grossly intact. Motor and sensory are also intact. Normal speech, volume and content. Symmetrical smile. MUSCULOSKELETAL: Normal extremities with adequate strength and full range of motion. No lower extremity swelling or edema. No calf tenderness. LYMPHATICS: No significant lymphadenopathy is noted PSYCHIATRIC: Normal psychiatric evaluation. Course Vital Signs 11/24/23 11/24/23 11/24/23 10:44 12:05 12:10 Temperature 99.2 F Pulse Rate 62 63 Respiratory 18 16 Rate Blood Pressure 138/55 139/60 O2 Sat by Pulse 95 91 L 98 Oximetry Medical Decision Making - Medical Decision Making EKG is interpreted by myself. EKG shows a sinus rhythm at 60 bpm parables 217 QRS is 100 QT interval is 460 QTc is 461. Patient's EKG shows no ST segment elevation or depression. Was pt. sent in by a medical professional or institution (, PA, CLIPPER OPERATOR, urgent care, hospital, or skilled nursing...) When possible be specific @ -No Did you speak to anyone other than the patient for history (EMS, parent, family, police, friend...)? What history was obtained from this source @ -No Did you review nursing and triage notes (agree or disagree)? Why? @ -I reviewed and agree with nursing and triage notes Were old charts reviewed (outside hosp., previous admission, EMS record, old EKG, old radiological studies, urgent care reports/EKG's, skilled nursing records)? Report findings @ -I compared today's chest x-ray with the prior CT in September of this year patient he appears to have a larger mass or infiltrate on the right side today compared to the previous. Differential Diagnosis? @ -Differential Fever: Pneumonia, viral URI, endocarditis, myocarditis, pericarditis, otitis, sinusitis, peritonsillar Abscess, retropharyngeal Abscess, epiglottitis, peritonitis, appendicitis, Nancy cystitis, diverticulitis, hepatitis, colitis, UTI, PID, TOA, pyelonephritis, prostatitis, epididymitis, meningitis, encephalitis, pulmonary embolism, CVA, thyroid storm, pancreatitis, adrenal crisis, cavernous sinus thrombosis, this is not meant to be an all-inclusive list. EKG interpreted by me (3pts min.). @ -As above X-rays interpreted by me (1pt min.). @ -Chest x-ray shows a mass with possible pneumonia around the mass on the right side. CT interpreted by me (1pt min.). @ -None done U/S interpreted by me (1pt. min.). @ -None done What testing was considered but not performed or refused? (CT, X-rays, U/S, labs)? Why? @ -None What meds were considered but not given or refused? Why? @ -None Did you discuss the management of the patient with other professionals (professionals i.e. , PA, CLIPPER OPERATOR, lab, RT, psych nurse, school social worker, chief school finance officer, t eacher, hydrological technical officer, caser shoe parts)? Give summary @ -I spoke with Dr. Hammond agreed to admit the patient admit the patient wrote admitting orders Was smoking cessation discussed for >3mins.? @ -No Was critical care preformed (if so, how long)? @ -No Were there social determinants of health that impacted care today? How? (Homelessness, low income, unemployed, alcoholism, drug addiction, transpor tation, low edu. Level, literacy, decrease access to med. care, [facility], rehab)? @ -No Was there de-escalation of care discussed even if they declined (Discuss DNR or withdrawal of care, Hospice)? DNR status @ -No What co-morbidities impacted this encounter? (DM, HTN, Smoking, COPD, CAD, Cancer, CVA, ARF, Chemo, Hep., AIDS, mental health diagnosis, sleep apnea, morbid obesity)? @ -None Was patient admitted / discharged? Hospital course, mention meds given and route, prescriptions, significant lab abnormalities, going to OR and other pertinent info. @ -Patient received antibiotics for pneumonia and I believe there is underlying mass as well patient will be admitted to Dr. Hammond and antibiotics will be continued Undiagnosed new problem with uncertain prognosis? @ -No Drug Therapy requiring intensive monitoring for toxicity (Heparin, Nitro, Insulin, Cardizem)? @ -No Were any procedures done? @ -No Diagnosis/symptom? @ -Pneumonia Acute, or Chronic, or Acute on Chronic? @ -Acute Uncomplicated (without systemic symptoms) or Complicated (systemic symptoms)? @ -Complicated Side effects of treatment? @ -No Exacerbation, Progression, or Severe Exacerbation? @ -No Poses a threat to life or bodily function? How? (Chest pain, [place], [place], pneumonia, PE, COPD, DKA, ARF, appy, cholecystitis, CVA, Diverticulitis, Homicidal, Suicidal, threat to staff... and all critical care pts) @ -Yes this could lead to sepsis and endorgan dysfunction - Lab Data Result diagrams: 11/24/23 11:00 11/24/23 11:00 Lab Results 11/24/23 11/24/23 11/24/23 Range/Units 11:00 11:00 11:00 WBC 4.8 (3.8-10.6) k/uL RBC 3.27 L (3.80-5.40) m/uL Hgb 9.8 L (11.4-16.0) gm/dL Hct 29.3 L (34.0-46.0) % MCV 89.6 (80.0-100.0) fL MCH 30.0 (25.0-35.0) pg MCHC 33.4 (31.0-37.0) g/dL RDW 14.1 (11.5-15.5) % Plt Count 155 (150-450) k/uL MPV 9.0 Neutrophils % (Manual) 49 % Lymphocytes % (Manual) 43 % Monocytes % (Manual) 2 % Eosinophils % (Manual) 6 % Neutrophils # (Manual) 2.35 (1.3-7.7) k/uL Lymphocytes # (Manual) 2.06 (1.0-4.8) k/uL Monocytes # (Manual) 0.10 (0-1.0) k/uL Eosinophils # (Manual) 0.29 (0-0.7) k/uL Nucleated RBCs 0 (0-0) /100 WBC Manual Slide Review Performed PT 10.4 (10.0-12.5) sec INR 0.9 (<1.2) APTT 24.2 (22.0-30.0) sec Sodium 136 L (137-145) mmol/L Potassium 4.1 (3.5-5.1) mmol/L Chloride 106 (98-107) mmol/L Carbon Dioxide 27 (22-30) mmol/L Anion Gap 3 mmol/L BUN 13 (7-17) mg/dL Creatinine 0.56 (0.52-1.04) mg/dL Est GFR (CKD-EPI)AfAm >90 (>60 ml/min/1.73 sqM) Est GFR (CKD-EPI)NonAf >90 (>60 ml/min/1.73 sqM) Glucose 99 (74-99) mg/dL Plasma Lactic Acid Roger (0.7-2.0) mmol/L Calcium 8.5 (8.4-10.2) mg/dL Total Bilirubin 0.7 (0.2-1.3) mg/dL AST 43 H (14-36) U/L ALT 24 (4-34) U/L Alkaline Phosphatase 89 (38-126) U/L Total Protein 6.0 L (6.3-8.2) g/dL Albumin 3.1 L (3.5-5.0) g/dL 11/24/23 Range/Units 11:00 WBC (3.8-10.6) k/uL RBC (3.80-5.40) m/uL Hgb (11.4-16.0) gm/dL Hct (34.0-46.0) % MCV (80.0-100.0) fL MCH (25.0-35.0) pg MCHC (31.0-37.0) g/dL RDW (11.5-15.5) % Plt Count (150-450) k/uL MPV Neutrophils % (Manual) % Lymphocytes % (Manual) % Monocytes % (Manual) % Eosinophils % (Manual) % Neutrophils # (Manual) (1.3-7.7) k/uL Lymphocytes # (Manual) (1.0-4.8) k/uL Monocytes # (Manual) (0-1.0) k/uL Eosinophils # (Manual) (0-0.7) k/uL Nucleated RBCs (0-0) /100 WBC Manual Slide Review PT (10.0-12.5) sec INR (<1.2) APTT (22.0-30.0) sec Sodium (137-145) mmol/L Potassium (3.5-5.1) mmol/L Chloride (98-107) mmol/L Carbon Dioxide (22-30) mmol/L Anion Gap mmol/L BUN (7-17) mg/dL Creatinine (0.52-1.04) mg/dL Est GFR (CKD-EPI)AfAm (>60 ml/min/1.73 sqM) Est GFR (CKD-EPI)NonAf (>60 ml/min/1.73 sqM) Glucose (74-99) mg/dL Plasma Lactic Acid Roger 1.2 (0.7-2.0) mmol/L Calcium (8.4-10.2) mg/dL Total Bilirubin (0.2-1.3) mg/dL AST (14-36) U/L ALT (4-34) U/L Alkaline Phosphatase (38-126) U/L Total Protein (6.3-8.2) g/dL Albumin (3.5-5.0) g/dL Disposition Clinical Impression: Pneumonia Disposition: ADMITTED IP TO THIS [facility] Referrals: Dandy Reynoso DO [Primary Care Provider] - 1-2 days Time of Disposition: 13:14
[2023-11-24 11:27] LABS: Potassium 4.1 mmol/L (3.5-5.1)
[2023-11-24 11:32] LABS: INR 0.9 (<1.2); Partial Thromboplastin Time 24.2 sec (22.0-30.0); Prothrombin Time 10.4 sec (10.0-12.5)
[2023-11-24] MEDS: IBUPROFEN 600 MG TAB PO STA (11:37)
[2023-11-24] MEDS: cefTRIAXone IN SWFI 1,000 MG/10 ML SYRINGE IVP STA ×2 (11:38→16:27)
[2023-11-24 11:42] LABS: HCT 29.3 % (34.0-46.0); HGB 9.8 gm/dL (11.4-16.0); MCHC 33.4 g/dL (31.0-37.0); MCV 89.6 fL (80.0-100.0); Platelet Count 155 k/uL (150-450); RBC 3.27 m/uL (3.80-5.40); RDW 14.1 % (11.5-15.5); WBC 4.8 k/uL (3.8-10.6)
[2023-11-24 12:08] LABS: Eosinophils # (M) 0.29 k/uL (0-0.7); Lymphocytes # (M) 2.06 k/uL (1.0-4.8); Neutrophils # (M) 2.35 k/uL (1.3-7.7); Neutrophils % (M) 49 %; Nucleated Red Blood Cells 0 /100 WBC (0-0); Total Cells Counted 100
--- NOTE | 2023-11-24 12:35 | XR ---
EXAMINATION TYPE: XR chest 2V DATE OF EXAM: 11/24/2023 COMPARISON: 04/28/2023, CT scan or TECHNIQUE: PA and lateral views submitted. HISTORY: The FINDINGS: A large area of masslike consolidation involving the right midlung measuring up to 7 cm. Left lung cl ear. Heart size normal. No sizable pleural effusion or pneumothorax. Degenerative changes in the spin e. Atherosclerotic change aorta. IMPRESSION: 1. Large 7 cm area of masslike consolidation may represent combination patient's history of known caridad plasm and superimposed pneumonia versus progression of neoplastic disease.
[2023-11-24] MEDS ORDERED: PNEUMONIA PROTOCOL UTILIZED 1 EACH MISC PO PRN (13:16)
[2023-11-24] MEDS ORDERED: ONDANSETRON 4 MG TAB PO PRN (16:10)
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
[2023-11-24] MEDS ORDERED: ONDANSETRON 4 MG/2 ML VIAL IVP PRN (17:10)
[2023-11-24] MEDS ORDERED: CALCIUM CARBONATE 500 MG CHEWABLE PO PRN (17:10)
[2023-11-24] MEDS ORDERED: LACTULOSE 20 GM/30 ML CUP PO PRN (17:10)
[2023-11-24] MEDS ORDERED: NALOXONE 0.4 MG/ML 1 ML VIAL IV PRN (17:10)
[2023-11-24] MEDS: AZITHROMYCIN 500 MG in SODIUM CHLORIDE 0.9% 250 ML IVPB STA (17:56)
[2023-11-24] MEDS: AZITHROMYCIN 500 MG in SODIUM CHLORIDE 0.9% 250 ML IVPB ONE (18:23)
[2023-11-24] MEDS: MELATONIN 5 MG TABLET PO SCH (20:05)
[2023-11-24] MEDS: SENNOSIDES-DOCUSATE SODIUM 1 EACH TAB PO SCH (20:05)
[2023-11-24] MEDS: APIXABAN 5 MG TAB PO SCH (20:06)
[2023-11-24] MEDS: ATORVASTATIN 80 MG TAB PO SCH (20:06)
[2023-11-24] MEDS: risperiDONE 1 MG TAB PO SCH (20:06)
[2023-11-24] MEDS: levETIRAcetam ORAL SOLN 500 MG/5 ML CUP PO SCH (20:06)
[2023-11-24] MEDS: AMIODARONE 100 MG TAB PO SCH (20:07)
[2023-11-25] MEDS: LEVOTHYROXINE 88 MCG TAB PO SCH (07:04)
[2023-11-25] MEDS: LOSARTAN 50 MG TAB PO SCH (10:17)
[2023-11-25] MEDS: METOPROLOL TARTRATE 25 MG TAB PO SCH (10:17)
[2023-11-25] MEDS: ASPIRIN 81 MG PO SCH (10:18)
[2023-11-25] MEDS: CYANOCOBALAMIN 500 MCG TAB PO SCH (10:18)
[2023-11-25] MEDS: ASCORBIC ACID 500 MG TAB PO SCH (10:18)
[2023-11-25] MEDS: CHOLECALCIFEROL 25 MCG (1000 IU) TABLET PO SCH (10:18)
[2023-11-25] MEDS: SERTRALINE 100 MG TAB PO SCH (10:19)
[2023-11-25] MEDS: SERTRALINE 25 MG TAB PO SCH (10:35)
[2023-11-25] MEDS ORDERED: RX INFO: IV CONTRAST WAS GIVEN 1 EACH MISC MISCELLANE PRN (10:38)
--- NOTE | 2023-11-25 10:43 | XR ---
EXAM: XR chest 1V portable CLINICAL INDICATION:Female, 72 years old with history of pneumonia; [facility] COMPARISON: 11/24/2023 and before TECHNIQUE: Chest single view. FINDINGS: Lines/tubes/devices: None. Cardiomediastinum: Cardiac silhouette appears upper normal in size. Unremarkable mediastinal silhouette. Vasculature: No increased pulmonary vasculature. Lungs/pleura: Right midlung mass approximately 7.2 x 6 cm in size which partially overlies the right hilum is again seen. Lungs otherwise appear stable. No sizable effusion or pneumothorax. No acute bony abnormality. IMPRESSION: 1. Large right mid lung mass redemonstrated. 2. No acute finding.
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
--- NOTE | 2023-11-25 15:17 | CT ---
EXAMINATION TYPE: CT chest w con CT DLP: 377.3 mGycm, Automated exposure control for dose reduction was used. DATE OF EXAM: 11/25/2023 2:51 PM COMPARISON: Pet/CT 06/29/2023, 10/04/2023 CLINICAL INDICATION:Female, 72 years old with history of history of mass ; PHH, abnormal findings, ma ss. TECHNIQUE: Multiple axial images were obtained through the chest. Sagittal and coronal reformats were created for review. Contrast used:80 mL of Isovue 300 with IV Contrast (None if empty) Oral contrast used: (None if empty) FINDINGS: LUNGS/ PLEURA: Extensive consolidation changes around the right perihilar region involving the right middle lobe and right lower lobe. The known right lower lobe mass is obscured by consolidation. AIRWAY: Patent and unremarkable. HEART: Size within normal limits. MEDIASTINUM: No gross evidence of adenopathy. VASCULATURE: No aortic aneurysm. MUSCULOSKELETAL: No acute osseous abnormalities SOFT TISSUES/LYMPH NODES: Unremarkable. LOWER NECK: No significant findings. UPPER ABDOMEN: Adrenal thickening on the left similar prior. Small splenule present. IMPRESSION: Consolidation on the right perihilar region suggestive of a pneumonia. No new mass is obs cured by consolidation changes. Short-term follow-up recommended to ensure resolution of acute infect ious process.
[2023-11-25] MEDS: AZITHROMYCIN 500 MG TAB PO SCH (15:19)
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
[2023-11-26 08:40] LABS: Protein, Total 5.4 g/dL (6.2-8.2)
--- NOTE | 2023-11-26 12:48 | P.PN ---
Subjective Progress Note Date: 11/26/23 This is a 72-year-old female patient is coming in the hospital because of increased lethargy and weakness and some degree of shortness of breath. The patient has a recent diagnosis of non-small cell lung cancer of the right lower lobe. She was given a diagnosis of lung cancer via robotic bronchoscopy and biopsy of right lower lobe mass. She also had a left upper lobe lesion that was biopsied and this was nondiagnostic for malignancy. The patient on underwent SBRT by radiation oncology on 08/16/2023. The patient finished the radiation that the patient felt well. Note that the choice of radiation therapy was done because of the patient's multiple medical problems and comorbidities of the patient is known to have previous history of CVA, dementia, hypertension, and she is also known to have hypothyroidism, hyperlipidemia and chronic debility. For now, the patient is on 2 L of oxygen by nasal cannula with pulse ox of 98%. She is afebrile. Hemodynamically stable. White cell count of 4.8, electrolytes are stable and the procalcitonin level is 0.07. A chest x-ray was done on admission and it showed the right midlung/lower lobe opacity measuring 7.2 x 6 cm in size and based on that a pulmonary consultation was requested. Note that the most recent CAT scan of the chest that was done on 10/04/2023 postradiation therapy showed that the right lower lobe mass persisted this was smaller in size. Left upper lobe pulmonary opacity also persisted and was also smaller in size. Left upper lobe opacity was measuring 1.7 cm in size when compared to 1.9 and a mass in the right lower lobe was measuring 3 cm compared to 3.4 cm on previous evaluations. Note that the PET scan that was done on 07/02/2023 showed increased uptake in the right lower lobe mass. No activity in the left upper l obe pulmonary nodule. 11/26/2023, the patient is being seen for a follow-up. Condition essentially unchanged compared to yesterday and the patient remains on 2 L of oxygen by nasal cannula. As mentioned, the patient has stage IV non-small cell lung cancer. A follow-up CAT scan of the chest was obtained yesterday as the patient has developed a new area of opacification of the right lower lobe. There is significant consolidation in the right lower lobe area and no new masses found. In fact, the consolidation is of securing the right lower lobe area. This could be potentially an area of infection. Nevertheless, the patient is afebrile. The white cell count nonelevated. The procalcitonin level has been low. Legionella urine antigen has been negative. The patient has also been kept on IV Rocephin as an empiric antibiotic coverage. She remains on localizing status. She remains on anticoagulants. No interval worsening shortness of breath or respiratory status for now. Objective - Vital Signs Vital signs: Vital Signs Temp 100 F H 11/26/23 01:34 Pulse 65 11/26/23 07:18 Resp 16 11/26/23 07:18 BP 149/77 11/26/23 07:18 Pulse Ox 90 L 11/26/23 07:18 FiO2 Intake & Output 11/25/23 11/26/23 11/26/23 18:59 06:59 18:59 Other: Voiding Method Bedside Commode Bedside Commode Incontinent # Voids 6 2 # Bowel Movements 1 1 - Exam GENERAL:. BMI 25.7, laying in bed, rather tired appearing, currently on today's of oxygen by nasal cannula head exam was generally normal. There was no scleral icterus or corneal arcus. Mucous membranes were moist. Neck was supple and without jugular venous distension, thyromegaly, or carotid bruits. Carotids were easily palpable bilaterally. There was no adenopathy. EYES: Pupils equal. Conjunctiva normal. HEENT: External appearance of nose and ears normal, oral cavity grossly normal. NECK: JVD not raised; masses not palpable. HEART: First and second heart sounds are normal; no edema. LUNGS: Respiratory rate normal; decreased breath sounds. ABDOMEN: Soft, nontender, liver spleen not palpable, no masses palpable. PSYCH: Answering questions appropriatelyl. MUSCULOSKELETAL:No Clubbing/cyanosis;muscles-grossly intact. OA NEUROLOGICAL: [Cranial nerves grossly intact; no facial asymmetry, power in the left arm 4/5.. - Labs CBC & Chem 7: 11/24/23 11:00 11/24/23 11:00 Labs: Abnormal Lab Results - Last 24 Hours (Table) 11/25/23 Range/Units 06:07 Total Protein (PEP) 5.4 L (6.2-8.2) g/dL IgA 405.0 H (60.0-350.0) mg/dL Microbiology - Last 24 Hours (Table) 11/24/23 15:37 Blood Culture - Preliminary Blood 11/24/23 11:00 Blood Culture - Preliminary Blood Assessment and Plan Plan: Right lower lobe mass, confirmed to be non-small cell lung cancer/squamous cell carcinoma, treated by SBRT and completed treatment on 08/16/2023 with subsequent reduction in size of the mass from 3.4 to 3 cm in size based on the CAT scan of the chest that was done on 10/04/2023. The patient is presenting with a significant change with enlargement of the right lower lobe mass, rule out postradiation scarring/atelectasis. Acute progression of the lung mass is felt to be less likely. Pneumonia is considered to be less likely. Procalcitonin level is at normal. Left upper lobe pulmonary nodule, improved and size based on the most recent CAT scan of the chest that was done on 10/04/2023 and the mass has dropped from 1.9 cm to 1.7 cm in size. COPD, currently inactive and stable History of seizure disorder History of CVA along with the right MCA distribution with left-sided weakness, chronic Rheumatoid arthritis receiving embolism outpatient basis Hypothyroidism Depression Hyperlipidemia Paroxysmal A-fib, current rhythm is sinus maintained on anticoagulation Chronic medical debility and the patient is moving around with the help of a walker Plan Clinically stable. No clinical signs of infection although pneumonia is suspected and the patient remains on IV Rocephin. Findings in the CAT scan of the chest could be potentially postradiation changes the patient is on IV Solu-Medrol. Continue bronchodilators. No new lung masses. Progression of her malignancy due to the rapid nature and rapid progression of those right lower lobe pulmonary findings. Could be radiation related complications. Will continue to follow.
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
[2023-11-26] MEDS: methylPREDNISolone SOD SUCCI 40 MG/ML 1 ML VIAL IV SCH (16:53)
[2023-11-27] MEDS: ACETAMINOPHEN TAB 325 MG TAB PO PRN (02:13)
--- NOTE | 2023-11-27 09:43 | XR ---
EXAMINATION TYPE: XR chest 2V DATE OF EXAM: 11/27/2023 6:47 AM CLINICAL INDICATION:Female, 72 years old with history of eval pna vs mass; [facility] COMPARISON: 11/25/[address] 11/25/2023. TECHNIQUE: XR chest 2V Frontal view of the chest. FINDINGS: Lungs/Pleura: Perihilar masslike opacity in the right There is no evidence of pleural effusion, focal consolidation, or pneumothorax. Pulmonary vascularity: Unremarkable. Heart/mediastinum: Cardiomediastinal silhouette is unremarkable. Musculoskeletal: No acute osseous pathology. IMPRESSION: Right midlung airspace masslike opacity is similar to prior.
[2023-11-27] MEDS: predniSONE 20 MG TAB PO SCH (11:34)
[2023-11-27 14:06] VITALS: BP 149/69; PULSE 65; RESP 19; TEMP 98.2
--- NOTE | 2023-11-27 14:48 | P.PN ---
Subjective Progress Note Date: 11/27/23 This is a 72-year-old female patient is coming in the hospital because of increased lethargy and weakness and some degree of shortness of breath. The patient has a recent diagnosis of non-small cell lung cancer of the right lower lobe. She was given a diagnosis of lung cancer via robotic bronchoscopy and biopsy of right lower lobe mass. She also had a left upper lobe lesion that was biopsied and this was nondiagnostic for malignancy. The patient on underwent SBRT by radiation oncology on 08/16/2023. The patient finished the radiation that the patient felt well. Note that the choice of radiation therapy was done because of the patient's multiple medical problems and comorbidities of the patient is known to have previous history of CVA, dementia, hypertension, and she is also known to have hypothyroidism, hyperlipidemia and chronic debility. For now, the patient is on 2 L of oxygen by nasal cannula with pulse ox of 98%. She is afebrile. Hemodynamically stable. White cell count of 4.8, electrolytes are stable and the procalcitonin level is 0.07. A chest x-ray was done on admission and it showed the right midlung/lower lobe opacity measuring 7.2 x 6 cm in size and based on that a pulmonary consultation was requested. Note that the most recent CAT scan of the chest that was done on 10/04/2023 postradiation therapy showed that the right lower lobe mass persisted this was smaller in size. Left upper lobe pulmonary opacity also persisted and was also smaller in size. Left upper lobe opacity was measuring 1.7 cm in size when compared to 1.9 and a mass in the right lower lobe was measuring 3 cm compared to 3.4 cm on previous evaluations. Note that the PET scan that was done on 07/02/2023 showed increased uptake in the right lower lobe mass. No activity in the left upper lo be pulmonary nodule. 11/26/2023, the patient is being seen for a follow-up. Condition essentially u nchanged compared to yesterday and the patient remains on 2 L of oxygen by nasal cannula. As mentioned, the patient has stage IV non-small cell lung cancer. A follow-up CAT scan of the chest was obtained yesterday as the patient has developed a new area of opacification of the right lower lobe. There is significant consolidation in the right lower lobe area and no new masses found. In fact, the consolidation is of securing the right lower lobe area. This could be potentially an area of infection. Nevertheless, the patient is afebrile. The white cell count nonelevated. The procalcitonin level has been low. Legionella urine antigen has been negative. The patient has also been kept on IV Rocephin as an empiric antibiotic coverage. She remains on localizing status. She remains on anticoagulants. No interval worsening shortness of breath or respiratory status for now. The patient is seen today November 27, 2023 in follow-up on the regular medical floor. She is currently sitting up in bed. Awake and alert in no acute distress. She is maintaining O2 saturations in the 90s on 2 L/min per nasal cannula. Her procalcitonin was 0.07. Chest x-ray reveals a right midlung airspace masslike opacity. Similar to previous. Blood cultures revealed no growth. She remains on bronchodilators, steroids. Antibiotics in the form of ceftriaxone. Objective - Vital Signs Vital signs: Vital Signs Temp 98.2 F 11/27/23 14:00 Pulse 65 11/27/23 14:00 Resp 19 11/27/23 14:00 BP 149/69 11/27/23 14:00 Pulse Ox 93 L 11/27/23 14:00 FiO2 Intake & Output 11/26/23 11/27/23 11/27/23 18:59 06:59 18:59 Intake Total 596 Output Total 650 Balance -54 Intake: Oral 596 Output: Urine 650 Other: Voiding Method Incontinent Bedside Commode Diaper Incontinent # Voids 3 4 # Bowel Movements 1 - Exam GENERAL: Awake, alert 72-year-old female, resting in bed. Maintaining O2 saturation in the 90s on 2 L/min per nasal cannula HEAD: Normal. There was no scleral icterus or corneal arcus. Mucous membranes we re moist. NECK: Supple and without jugular venous distension, thyromegaly, or carotid bruits. Carotids were easily palpable bilaterally. There was no adenopathy. EYES: Pupils equal. Conjunctiva normal. HEENT: External appearance of nose and ears normal, oral cavity grossly normal. NECK: JVD not raised; masses not palpable. HEART: First and second heart sounds are normal; no edema. LUNGS: Respiratory rate normal; decreased breath sounds. ABDOMEN: Soft, nontender, liver spleen not palpable, no masses palpable. PSYCH: Answering questions appropriatelyl. MUSCULOSKELETAL:No Clubbing/cyanosis;muscles-grossly intact. OA NEUROLOGICAL: [Cranial nerves grossly intact; no facial asymmetry, power in the left arm 4/5. - Labs CBC & Chem 7: 11/24/23 11:00 11/24/23 11:00 Labs: Microbiology - Last 24 Hours (Table) 11/24/23 15:37 Blood Culture - Preliminary Blood 11/24/23 11:00 Blood Culture - Preliminary Blood Assessment and Plan Assessment: Right lower lobe mass, confirmed to be non-small cell lung cancer/squamous cell carcinoma, treated by SBRT and completed treatment on 08/16/2023 with subsequent reduction in size of the mass from 3.4 to 3 cm in size based on the CAT scan of the chest that was done on 10/04/2023. The patient is presenting with a signific ant change with enlargement of the right lower lobe mass, rule out postradiation scarring/atelectasis. Acute progression of the lung mass is felt to be less likely. Pneumonia is considered to be less likely. Procalcitonin level is at normal. Left upper lobe pulmonary nodule, improved and size based on the most recent CAT scan of the chest that was done on 10/04/2023 and the mass has dropped from 1.9 cm to 1.7 cm in size. COPD, currently inactive and stable History of seizure disorder History of CVA along with the right MCA distribution with left-sided weakness, chronic Rheumatoid arthritis receiving embolism outpatient basis Hypothyroidism Depression Hyperlipidemia Paroxysmal A-fib, current rhythm is sinus maintained on anticoagulation Chronic medical debility and the patient is moving around with the help of a walker Plan: The patient was seen and evaluated Labs and medications reviewed Discontinue Solu-Medrol Initiated prednisone taper Procalcitonin normal Discontinue antibiotics Titrate the FiO2 as tolerated Plan is to return to [facility] at discharge I have personally seen and examined the patient, performed the documentation and the assessment and plan as written. Number of minutes spent on the visit: 10.
--- NOTE | 2023-11-27 15:43 | P.DS ---
Providers Date of admission: 11/24/23 13:16 Expected date of discharge: 11/27/23 Attending physician: Isiah Hammond Consults: 11/24/23 17:09 Consult Physician Routine Consulting Provider: Flaquita Caballero Consult Reason/Comments: Right-sided mass Do you want consulting provider notified?: Yes 11/24/23 17:11 Consult Physician Routine Consulting Provider: Terrell Burdick Consult Reason/Comments: Lung mass Do you want consulting provider notified?: Yes Primary care physician: Dandy Reynoso [facility] Course: Final diagnosis -Possible obstructive pneumonia. Although felt to be less likely, white count was normal and procalcitonin was normal -History of seizure disorder -Right lower lobe mass confirmed to be non-small cell lung cancer/squamous cell carcinoma treated by SBRT and completed treatment on August 16, 2023 with subsequent reduction in size of the mass from 3.43 cm in size based on CT scan of the chest -Chronic right-sided encephalomalacia in the right MCA did territory with left arm weakness -Chronic medical debility at her baseline uses a walker -Hyperlipidemia -Chronic rheumatoid arthritis -Hypothyroid -Depression -Essential hypertension -Paroxysmal atrial fibrillation, currently in sinus rhythm -GI prophylaxis -DVT prophylaxis -No code Discharge disposition Patient is being discharged in a stable condition with guarded prognosis to [facility]. Patient will follow-up with Dr. Reynoso in the outpatient setting upon discharge. Patient is to continue with close outpatient follow-up with oncology and pulmonary outpatient as scheduled. Total time taken is greater than 35 minutes. Hospital course This is a 72-year-old female who was recently admitted with increasing shortness of breath with concerns of possible postobstructive pneumonia. Patient does have significant history of COPD as well as a right lower lobe mass with non- small cell lung carcinoma and completed treatment on August 16, 2023 showing a reduction in the mass. Patient started developing increasing shortness of breath and initially thought to be possibly pneumonia. Procalcitonin was done which was low and white count normal and patient was afebrile. Patient being followed by pulmonary recommending outpatient follow-up as well as oncology. Please refer to other consultation notes for further HPI. Currently no reports of chest pain, shortness of breath, or palpitations. Patient is afebrile. No reports of nausea or vomiting and patient is tolerating diet. Patient will be going to [facility] today. Guarded prognosis and high risk for readmissions Physical exam: Gen: This is a 72-year-old female who is awake, alert and oriented, well- developed, elderly appearing HEENT: Head is atraumatic, normocephalic. Pupils equal, round. Sclerae is anicteric. NECK: Supple. No JVD. No lymphadenopathy. No thyromegaly. LUNGS: Diminished breath sounds bilaterally otherwise clear to auscultation. No wheezes or rhonchi. No intercostal retractions. HEART: S1, S2 are muffled ABDOMEN: Soft. Bowel sounds are present. No masses. No tenderness. EXTREMITIES: No pedal edema. No calf tenderness. NEUROLOGICAL: Patient is awake, alert and oriented x3. Cranial nerves 2 through 12 are grossly intact. Diffusely weak Please refer to medication reconciliation sheet for a list of medications. The impression and plan of care has been dictated by Elizabeth Luna, Nurse Practitioner as directed. Dr. Tania MD I have performed a history and examination and MDM of this patient, discussed the same with the dictator, and agree with the dictator's assessment and plan as written ,documented as a scribe. Based on total visit time, I have performed more than 50% of the visit. Patient Condition at Discharge: Fair Plan - Discharge Summary Discharge Rx Participant: No New Discharge Prescriptions: New Calcium Carbonate [Tums] 1,000 mg PO Q4HR PRN tab PRN Reason: Dyspepsia Lactulose [Cephulac] 20 gm PO DAILY PRN ml PRN Reason: Constipation predniSONE 10 mg PO DIRECTED #30 tab Continue Cholecalciferol [Vitamin D3 (25 Mcg = 1000 Iu)] 25 mcg PO DAILY Ascorbic Acid [Vitamin C] 1,000 mg PO DAILY Aspirin 81 mg PO DAILY tab Ready Care 2.0 (House Supplement) 120 ml PO BID levETIRAcetam ORAL SOLN [Keppra Oral Soln] 500 mg PO BID@0800,2000 Sennosides/Docusate Sodium [Senna Plus 8.6-50 mg Softgel] 2 cap PO HS Sertraline [Zoloft] 25 mg PO DAILY Ondansetron [Zofran] 4 mg PO Q8H PRN PRN Reason: Nausea Acetaminophen Tab [Tylenol] 650 mg PO Q6H PRN PRN Reason: Pain Or Fever > 100.5 Apixaban [Eliquis] 5 mg PO BID Etanercept [Enbrel] 50 mg SQ TU Cyanocobalamin (Vitamin B-12) [Vitamin B-12] 1,000 mcg PO DAILY@0800 Atorvastatin [Lipitor] 80 mg PO HS tab Calcium Carbinate W/D3 500/10 2 tab PO Q4H PRN PRN Reason: Heartburn Healthshake 1 dose PO BID@1100,1800 risperiDONE [RisperDAL] 1 mg PO HS@2000 Levothyroxine Sodium [Synthroid] 88 mcg PO DAILY Amiodarone [Cordarone] 100 mg PO HS Losartan [Cozaar] 50 mg PO DAILY@0800 Magnesium Hydroxide [Milk of Magnesia] 2,400 mg PO DAILY PRN PRN Reason: Constipation Melatonin 5 mg PO HS Metoprolol Tartrate [Lopressor] 75 mg PO BID@0800,1600 Sertraline [Zoloft] 100 mg PO DAILY Discontinued Cefuroxime [Ceftin] 250 mg PO BID@08,1999 Discharge Medication List Acetaminophen Tab [Tylenol] 650 mg PO Q6H PRN 10/27/22 [History] Apixaban [Eliquis] 5 mg PO BID 10/27/22 [History] Ascorbic Acid [Vitamin C] 1,000 mg PO DAILY 10/27/22 [History] Cholecalciferol [Vitamin D3 (25 Mcg = 1000 Iu)] 25 mcg PO DAILY 10/27/22 [History] Cyanocobalamin (Vitamin B-12) [Vitamin B-12] 1,000 mcg PO DAILY@0800 10/27/22 [History] Etanercept [Enbrel] 50 mg SQ TU 10/27/22 [History] Ondansetron [Zofran] 4 mg PO Q8H PRN 10/27/22 [History] Aspirin 81 mg PO DAILY tab 11/01/22 [Rx] Atorvastatin [Lipitor] 80 mg PO HS tab 11/01/22 [Rx] Calcium Carbinate W/D3 500/10 2 tab PO Q4H PRN 01/13/23 [History] Healthshake 1 dose PO BID@1100,1800 01/13/23 [History] Levothyroxine Sodium [Synthroid] 88 mcg PO DAILY 01/13/23 [History] risperiDONE [RisperDAL] 1 mg PO HS@199901/13/23 [History] Amiodarone [Cordarone] 100 mg PO HS 11/24/23 [History] Losartan [Cozaar] 50 mg PO DAILY@0800 11/24/23 [History] Magnesium Hydroxide [Milk of Magnesia] 2,400 mg PO DAILY PRN 11/24/23 [History] Melatonin 5 mg PO HS 11/24/23 [History] Metoprolol Tartrate [Lopressor] 75 mg PO BID@0800,1600 11/24/23 [History] Ready Care 2.0 (House Supplement) 120 ml PO BID 11/24/23 [History] Sennosides/Docusate Sodium [Senna Plus 8.6-50 mg Softgel] 2 cap PO HS 11/24/23 [History] Sertraline [Zoloft] 25 mg PO DAILY 11/24/23 [History] Sertraline [Zoloft] 100 mg PO DAILY 11/24/23 [History] levETIRAcetam ORAL SOLN [Keppra Oral Soln] 500 mg PO BID@0800,199911/24/23 [History] Calcium Carbonate [Tums] 1,000 mg PO Q4HR PRN tab 11/27/23 [Rx] Lactulose [Cephulac] 20 gm PO DAILY PRN ml 11/27/23 [Rx] predniSONE 10 mg PO DIRECTED #30 tab 11/27/23 [Rx] Follow up Appointment(s)/Referral(s): Hu Garcia MD [STAFF PHYSICIAN] - 2 Weeks Dandy Reynoso DO [Primary Care Provider] - 1-2 days Asher Segovia MD [STAFF PHYSICIAN] - 1 Week Activity/Diet/Wound Care/Special Instructions: Patient is going to [facility] Activity as tolerated Continue taking a prednisone taper Follow-up with primary care provider on discharge Follow-up pulmonary outpatient Follow-up with oncology outpatient Continue regular diet dysphagia chopped and aspiration precautions with head of the bed elevated 30 to 45 degrees at all times and supervision with meals Discharge Disposition: TRANSFER TO SNF/ECF
[2023-11-27 17:21] LABS: Albumin 2.68 g/dL (3.80-4.90); Free Kappa Lt Chain Qnt, Serum 3.45 mg/dL (0.33-1.94); Free Lambda Lt Chain Qnt, Seru 3.23 mg/dL (0.57-2.63)
[2023-11-29 14:39] LABS: % Iron Saturation 12.62 (12.00-45.00)
== END 2023-11-27 17:17 | DRG 194 ==
LOC: EC 10:41 → EEVIPCON 13:16 → 4SSUR 13:16
PROVIDERS: ADMIT Hospitalist; ATTEND Hospitalist
DX: J18.9 Pneumonia, unspecified organism (principal); C34.31 Malignant neoplasm of lower lobe, right bronchus or lung; F03.93 Unspecified dementia, unspecified severity, with mood disturbance; F03.94 Unspecified dementia, unspecified severity, with anxiety; I69.354 Hemiplegia and hemiparesis following cerebral infarction affecting left non-dominant side; J44.0 Chronic obstructive pulmonary disease with (acute) lower respiratory infection; D64.9 Anemia, unspecified; N28.9 Disorder of kidney and ureter, unspecified; E03.9 Hypothyroidism, unspecified; M06.9 Rheumatoid arthritis, unspecified; E78.5 Hyperlipidemia, unspecified; F32.A Depression, unspecified; G40.909 Epilepsy, unspecified, not intractable, without status epilepticus; Z87.891 Personal history of nicotine dependence; G93.89 Other specified disorders of brain; I10 Essential (primary) hypertension; I48.0 Paroxysmal atrial fibrillation; Z92.3 Personal history of irradiation; Z79.01 Long term (current) use of anticoagulants; Z79.1 Long term (current) use of non-steroidal anti-inflammatories (NSAID); Z79.82 Long term (current) use of aspirin; Z79.890 Hormone replacement therapy; Z79.899 Other long term (current) drug therapy
CPT/HCPCS: 36415; 71045; 71046; 71260; 80053; 82607; 82728; 82746; 82784; 83540; 83550; 83605; 83883; 83921; 84145; 84165; 85025; 85610; 85730; 86334; 87040; 87449; 93005; 94760; 96374; 99285

== ENCOUNTER → 2024-02-07 | Outpatient (CLI) | payer MEDICARE, OTHER ==
--- NOTE | 2024-02-07 11:04 | CT ---
EXAMINATION TYPE: CT chest wo con CT DLP: 334.60 mGycm, Automated exposure control for dose reduction was used. DATE OF EXAM: 02/07/2024 10:52 AM COMPARISON: CT chest 11/25/2023, 10/04/2023, 04/27/2023, PET/CT 06/29/2023 CLINICAL INDICATION:Female, 73 years old with history of C34.31 LUNG CANCER; PHH, Lung ca TECHNIQUE: Multiple axial images were obtained through the chest without IV contrast. Lack of IV or o ral contrast limits evaluation of solid and hollow organ viscera. . Coronal and sagittal reformats re viewed. FINDINGS: LUNGS/ PLEURA: Small right pleural effusion. No pneumothorax . Similar appearance of right mid and l ower lung perihilar consolidative opacity with surrounding groundglass patchy opacities and air bronc hograms. This is progressed from prior CT 10/04/2023. Stable medial left upper lobe 1.5 cm ovoid pulmo nary nodule. AIRWAY: Patent and unremarkable.. HEART: The heart is mildly increased in size.. No pericardial effusion. MEDIASTINUM: No gross evidence of adenopathy. VASCULATURE: No aortic aneurysm. MUSCULOSKELETAL: No acute osseous abnormalities. Mild multilevel degenerative disc disease. No aggres sive osseous lesion. SOFT TISSUES/LYMPH NODES: Unremarkable. LOWER NECK: No significant findings. UPPER ABDOMEN: Similar left adrenal gland thickening. IMPRESSION: 1. Similar right mid and lower lung masslike consolidative opacities with surrounding groundglass opa cities. Etiologies include pneumonia and/or known lung cancer. Consider further evaluation with PET/C T. 2. Stable left upper lobe pulmonary nodule which was not FDG avid on prior PET/CT. 3. Stable thickening of the left adrenal gland. Metastasis is not excluded. 4. Small right pleural effusion. [facility], , 02/07/2024 11:01 AM
== END | disposition home or self-care (01) ==
LOC: RADCTMAIN 10:33
PROVIDERS: ATTEND Radiology Radiation Oncology
DX: C34.31 Malignant neoplasm of lower lobe, right bronchus or lung
CPT/HCPCS: 71250

== ENCOUNTER → 2024-05-20 | Outpatient (CLI) | payer MEDICARE, OTHER ==
--- NOTE | 2024-05-20 14:21 | CT ---
EXAMINATION TYPE: CT chest wo con CT DLP: 325.8 mGycm, Automated exposure control for dose reduction was used. DATE OF EXAM: 05/20/2024 1:56 PM COMPARISON: CT chest 02/07/2024, 11/25/2023, 10/04/2023, 04/27/2023, 03/27/2023, PET/CT 06/29/2023, 11/25/2022 CLINICAL INDICATION:Female, 73 years old with history of C34.31 LUNG CA; PHH, lung ca TECHNIQUE: Multiple axial images were obtained through the chest without IV contrast. Lack of IV or o ral contrast limits evaluation of solid and hollow organ viscera. . Coronal and sagittal reformats re viewed. FINDINGS: LUNGS/ PLEURA: No pleural effusion. Resolution of right pleural effusion. No pneumothorax. Similar ap pearance of right mid and lower lung perihilar masslike consolidative opacity air bronchograms. There is decreased surrounding patchy consolidative opacities from prior exam. Stable medial left upper lo be 1.6 cm ovoid pulmonary nodule (series 205, image 14). AIRWAY: Patent and unremarkable.. HEART: The heart is mildly increased in size.. No pericardial effusion. Coronary artery calcification s. MEDIASTINUM: No gross evidence of adenopathy. VASCULATURE: No aortic aneurysm. Mild atherosclerotic calcification of the aorta and its branches. MUSCULOSKELETAL: No acute osseous abnormalities. Mild multilevel degenerative disc disease. No aggres sive osseous lesion. SOFT TISSUES/LYMPH NODES: Unremarkable. LOWER NECK: No significant findings. UPPER ABDOMEN: Similar left adrenal gland thickening. IMPRESSION: 1. Similar right mid and lower lung masslike consolidation with resolution of surrounding consolidati ve opacities. Findings likely represent improvement in pneumonia with persistent pulmonary mass highl y concerning for malignancy. Recommend further evaluation with PET/CT. 2. Stable left upper lobe pulmonary nodule which was not FDG avid on prior PET/CT. 3. Stable thickening of the left adrenal gland. Metastasis is not excluded. [facility], , 05/20/2024 2:18 PM
== END | disposition home or self-care (01) ==
LOC: RADCTMAIN 13:12
PROVIDERS: ATTEND Radiology Radiation Oncology
DX: C34.31 Malignant neoplasm of lower lobe, right bronchus or lung (principal); R91.1 Solitary pulmonary nodule; E27.8 Other specified disorders of adrenal gland
CPT/HCPCS: 71250

== ENCOUNTER → 2024-09-13 | Outpatient (CLI) | payer MEDICARE, OTHER ==
--- NOTE | 2024-09-13 11:16 | CT ---
EXAMINATION TYPE: CT chest wo con CT DLP: 382.6 mGycm, Automated exposure control for dose reduction was used. DATE OF EXAM: 09/13/2024 10:57 AM COMPARISON: Multiple CT chest with most recent 05/20/2024, PET/CT 06/29/2023 CLINICAL INDICATION:Female, 73 years old with history of C34.31; PHH, Lung cancer. TECHNIQUE: Multiple axial images were obtained through the chest without IV contrast. Lack of IV or o ral contrast limits evaluation of solid and hollow organ viscera. . Coronal and sagittal reformats re viewed. FINDINGS: LUNGS/ PLEURA: No pleural effusion or pneumothorax. Similar appearance of right mid and lower lung pe rihilar masslike consolidative opacity with air bronchograms from prior CT. This is increased in size from prior PET/CT where there was FDG activity identified. There is similar surrounding atelectasis. Stable medial left upper lobe 1.6 cm ovoid pulmonary nodule (series 4, image 12). Stable medial left upper lobe 3 mm groundglass pulmonary nodule (series 4, image 17). These nodules do not demonstrate FDG activity in prior PET/CT. No new suspicious or margin pulmonary nodules. AIRWAY: Patent and unremarkable. HEART: The heart is mildly increased in size. No pericardial effusion. Mild coronary artery calcifica tions. Most pronounced in the LAD. MEDIASTINUM: No gross evidence of adenopathy. VASCULATURE: No aortic aneurysm. Mild atherosclerotic calcification of the aorta and its branches. MUSCULOSKELETAL: No acute osseous abnormalities. Mild multilevel degenerative disc disease. No aggres sive osseous lesion. SOFT TISSUES/LYMPH NODES: Unremarkable. LOWER NECK: No significant findings. UPPER ABDOMEN: Similar left adrenal gland thickening. Demonstrated low level FDG activity on prior PE T/CT. IMPRESSION: 1. Similar right mid and lower lung masslike consolidation from most recent CT. This has increased in size from prior PET/CT 06/29/2023 and demonstrated FDG activity at that time. This again is concerning for malignancy. 2. Stable indeterminate left upper lobe pulmonary nodules which were not FDG avid on prior PET/CT. 3. Stable thickening of the left adrenal gland with low level FDG activity on prior PET/CT. Metastasi s is not excluded. [facility], , 09/13/2024 11:14 AM
--- NOTE | 2024-09-13 12:30 | CT ---
EXAMINATION TYPE: CT brain wo con CT DLP: 890.1 mGycm, Automated exposure control for dose reduction was used. DATE OF EXAM: 09/13/2024 12:16 PM COMPARISON: Head CT 06/29/2023, MRI brain 05/30/2023, CT brain 01/13/2023, CTA head and neck 01/13/2023, MR I brain 10/29/2022, PET/CT 11/25/2022 CLINICAL INDICATION:Female, 73 years old with history of cerebral infarction, History of stroke. TECHNIQUE: Brain: Multiple axial CT images of the brain were obtained without IV contrast. . Coronal and sagitta l reformats reviewed. FINDINGS: Brain: Extra-axial spaces: No abnormal extra-axial fluid collections. Ventricular system: Within normal limits Cerebral parenchyma: Large region of encephalomalacia within the right MCA territory from prior MCA t erritory infarct. Region of encephalomalacia within the central vinay related to prior lacunar infarct . No acute intraparenchymal hemorrhage or mass effect. The remaining prajapati-white junction is well dif ferentiated. Scattered hypoattenuating areas are seen within the periventricular and subcortical whit e matter. Cerebellum: Unremarkable. Mass effect: No evidence of midline shift. Intracranial vasculature: Atherosclerotic calcifications of the intracranial vessels. Soft tissues: Normal. Calvarium/osseous structures: No depressed skull fracture. Paranasal sinuses and mastoid air cells: Clear Visualized orbits: Orbital contents are intact. IMPRESSION: 1. No acute intracranial process. 2. Remote large right MCA territory and vinay ischemic injuries are unchanged. 3. Nonspecific white matter changes, likely secondary to chronic small vessel ischemic disease. [facility], , 09/13/2024 12:28 PM
== END | disposition home or self-care (01) ==
LOC: RADCTMAIN 10:42
PROVIDERS: ATTEND Radiology Radiation Oncology
DX: C34.31 Malignant neoplasm of lower lobe, right bronchus or lung (principal); R91.8 Other nonspecific abnormal finding of lung field; I67.82 Cerebral ischemia
CPT/HCPCS: 70450; 71250